=== PATIENT | female | born 1945 | race Caucasian/White ===

== ENCOUNTER 2017-12-28 13:00 | Emergency (ER) | payer MEDICARE, MEDICAID, SELFPAY ==
[2017-12-28] VITALS (8 sets, daily range): BP systolic 95–128; BP diastolic 75–104; PULSE 85–115; RESP 20–29; TEMP 36.8; O2SAT 89–95; BMI 36.6
--- NOTE | 2017-12-28 13:25 | RAD_ITS ---
STUDY: X-RAY CHEST REASON FOR EXAM: Female, 72 years old. Increased shortness of breath. TECHNIQUE: Single AP portable view of the chest. COMPARISON: Comparison is made with prior study dated December 20, 2016. FINDINGS: EKG electrodes are seen. Stable mild degree of increased linear markings at the lung bases suggestive of basilar scarring. The lungs are clear and expanded. There is no demonstrated pleural abnormality. Normal size heart. Normal mediastinum and jeffrey. Normal visualized pulmonary arteries. There is atherosclerotic calcification of the aortic arch with tortuosity. There are diffuse degenerative changes of the visualized thoracic spine. There is degenerative osteoarthritis of the bilateral shoulders. Findings suggestive of a hiatal hernia. RAD/Chest 1 View (Portable) IMPRESSION: Stable increased linear markings at the lung bases suggestive of scarring. Electronically Signed: Krishna Grant MD at 13:54 EDT Tel [phone], Service support ,
--- NOTE | 2017-12-28 13:25 | EKG12_ITS ---
Test Reason : SOB Blood Pressure : / mmHG Vent. Rate : 102 BPM Atrial Rate : 381 BPM P-R Int : 000 ms QRS Dur : 070 ms QT Int : 326 ms P-R-T Axes : 000 026 048 degrees QTc Int : 424 ms Atrial flutter with variable A-V block Abnormal ECG Confirmed by JOSE PAUL ([id number]), scientific publications editor CARMEN SAMPSON ([id number]) on 01/01/2018 10:21:58 AM Referred By: FERNANDA Confirmed By:JOSE PAUL
[2017-12-28] MEDS: Ipratropium/Albuterol Sulfate 3 ML AMPUL.NEB INHALATION (13:32)
[2017-12-28 13:37] LABS: Absolute Lymphocyte Count 1.42 X10^3/ul (0.83-4.51); Basophil# 0.01 X10^3/uL; Basophil% 0.1 % (0-1); Eosinophil# 0.14 X10^3/uL; Eosinophils% 1.7 % (0-5); Hematocrit 46.6 % (37-47); Hemoglobin 12.2 g/dl (12.0-15.0); Lymphocyte # 1.42 X10^3/ul (4.0); Lymphocyte % 17.1 % (19-41); Mean Corp Hgb Conc 26.2 g/gl (32-36); Mean Corpuscular Hgb 28.8 pg (27.0-32.0); Mean Corpuscular Volume 110.2 fL (81-99); Mean Platelet Vol. 10.9 fl (6.2-12.0); Monocyte# 0.69 X10^3/uL; Monocyte% 8.3 % (0-10); Neutrophil # 6.03 X10^3/uL (2.7-7.7); Neutrophil % 72.8 % (47-70); Platelet Count 137 K/mm3 (150-450); RBC Distribution Width CV 13.3 % (11.6-14.6); RBC Distribution Width SD 53.5 fl (35.1-43.9); Red Blood Count 4.23 M/mm3 (4.2-5.4); White Blood Count 8.3 K/mm3 (4.4-11.0)
[2017-12-28 13:38] LABS: POSITIVE COUNT NO; POSITIVE DIFFERENTIAL NO; POSITIVE MORPHOLOGY NO
--- NOTE | 2017-12-28 13:44 | ED.VISSUMM ---
- ER Visit Summary Date of Service: 12/28/17 Chief Complaint: [] Shortness of breath A. fib History of Present Illness: The patient is a 72 F [] long history of chronic shortness of breath related to COPD on home O2 6 L A. fib Coumadin therapy she indicates basically her oxygen saturation fell based on her pulse ox reading to about 77% she was brought to the emergency department she indicates she now believes that her oxygen tubing was kinked as just on arrival and been placed on her normal O2 of 6 L she is feeling back to baseline no fever no cough chronic shortness of breath no chest pain abdominal pain normal bowel bladder habits she has A. fib and her heart rates were about 110-120 she states that is baseline for her she assures me she feels Apsley back to baseline now, she seen by Dr. Shepard who she does not wish for me to contact as she is concerned if he is contacted he will insist that she should be admitted but she actually feels better and wants to go home Physical Examination: [] She is resting in the bed she has a pulse ox of 94% on liters, her heart rate is about 110-120 A. fib on the monitor her HEENT exam is unremarkable her lungs are markedly diminished heart tones are regular the abdomen is soft obese but nontender lower extremities show no sinus clubbing or edema neurologically she is awake alert speaking full sentences in no distress Test Results: [] Emergency Department Course and Treatment: [] EKG shows nothing acute site A. fib rate 100 studies are all generally unremarkable for her see those reports her CO2 on the chemistry panel came back greater than 45 she remains awake and alert with no signs of respiratory failure or distress her chest x-ray showed chronic changes her daughter came in a long conversation with the patient again we did offer the patient admission the patient insisted she was fine her pulse ox was remained in the 94% range on her oxygen she assures that she has plenty of oxygen at home we did provide her with additional oxygen tubing so walking of explained her she cannot go long distances with the tubing and that can affect the amount of oxygen she can receive, she insists she is feeling fine during the period of observation she remained awake alert no mental status changes of any kind her A. fib has been controlled her current vital signs her heart rate is 80 the blood pressure is 120/80 and her pulse ox is 94% and she speaking in full sentences she does agree to follow-up with her physicians and return for change in symptoms she is awake alert clearly has capacity to make this decision and the daughter was in the room we had these conversations and believe that the patient's decision to make Treatment Plan: [] Disposition: [] Home stable declined admission Impression: [] exacerrbation of COPD A. fib This note was generated with [employer] dictation software. It may contain incorrect words, spelling, and punctuation that were not noted in review of the chart prior to signing ED Disposition - Plan for ED Patient: Chief Complaint: Shortness of Breath Referrals: Vani Fuentes MD [Primary Care Provider] -
[2017-12-28 13:56] LABS: BUN 21 mg/dL (7-18); BUN/Creat Ratio 17.2 RATIO (10-20); Calcium,Total 10.2 mg/dL (8.5-10.1); Carbon Dioxide > 45.0 mmol/L (21.0-32.0); Chloride 94 mmol/L (98-107); Creatinine, Serum 1.22 mg/dL (0.55-1.02); EST Glomerular Filtration Rate 46 mL/min (>60); Est Glom Filt Rate - Afr Amer 55 mL/min (>60); Estimated Creatinine Clearance 29.06 ml/min; Glucose 157 mg/dL (74-106); Potassium 4.5 mmol/L (3.5-5.1); Sodium Level 143 mmol/L (136-145)
--- NOTE | 2017-12-28 13:58 | ED.RN ---
DR ADAMS NOTIFIED OF CO2 RESULTS
[2017-12-28 14:06] LABS: BNP,B-Type NATRIURETIC PEPTIDE 149.5 pg/mL (0-100)
[2017-12-28] MEDS: dilTIAZem 25 MG/5 ML Vial 20 MG IV BOLUS (14:22)
--- NOTE | 2017-12-28 16:13 | CM.ED ---
Shortness of Breath zone management sheet provided to patient. Reviewed with patient and patient's daughter at bedside. No questions at this time.
--- NOTE | 2017-12-28 16:35 | ED.DEP ---
ED Disposition - Plan for ED Patient: Chief Complaint: Shortness of Breath Instructions: ED COPD Flare Referrals: Vani Fuentes MD [Primary Care Provider] -
--- NOTE | 2017-12-29 11:49 | CM.ED ---
ED CALLBACK: Followup call placed to patient. Patient states she is feeling good today. She states she replaced her oxygen tubing. I referenced her zone management sheet, as we discussed in the ED yesterday. She acknowledges that she does have this sheet in a visible location and was familiar with it's use. We reviewed the different zones and patient indicates she is in the green zone at this time. Encouraged patient to refer to this sheet often and to contact her PCP when she feels she is entering the yellow zone. Patient states understanding and thanks
== END 2017-12-28 18:51 | disposition home or self-care (01) ==
PROVIDERS: Emergency Provider Emergency Medicine; Family Provider Family Medicine; PCP Family Medicine
DX: J44.1 Chronic obstructive pulmonary disease with (acute) exacerbation (principal); I48.91 Unspecified atrial fibrillation; Z99.81 Dependence on supplemental oxygen; Z79.01 Long term (current) use of anticoagulants; Z79.899 Other long term (current) drug therapy
CPT/HCPCS: 71045; 80048; 83880; 84484; 85025; 93005; 94640; 96374; 99285; A4216

== ENCOUNTER 2018-04-02 06:53 | Day surgery (SDC) | payer MEDICARE, SELFPAY ==
[2018-04-02 07:36] LABS: Prothrombin Time Fingerstick 11.6 SEC (11.9-14.4)
[2018-04-02 07:40] VITALS: BP 138/67; PULSE 49; RESP 18; TEMP 36.1; O2SAT 98; BMI 30.5
--- NOTE | 2018-04-02 08:32 | OP.ENDO_ITS ---
Patient Name: Onelia Keller Procedure Date: 04/02/2018 8:03 AM Date of : 1945 Age: 72 Procedure: Colonoscopy Indications: Heme positive stool Providers: Pankaj Zimmerman MD Referring MD: Pankaj Zimmerman MD Medicines: See the Anesthesia note for documentation of the administered medications Patient Profile: Last Colonoscopy: none. The patient's first colonoscopy is today. Complications: No immediate complications. Procedure: Pre-Anesthesia Assessment: - Prior to the procedure, a History and Physical was performed, and patient medications and allergies were reviewed. The patient's tolerance of previous anesthesia was also reviewed. The risks and benefits of the procedure and the sedation options and risks were discussed with the patient. All questions were answered, and informed consent was obtained. Prior Anticoagulants: The patient has taken Coumadin (warfarin), last dose was 7 days prior to procedure. ASA Grade Assessment: III - A patient with severe systemic disease. After reviewing the risks and benefits, the patient was deemed in satisfactory condition to undergo the procedure. After I obtained informed consent, the scope was passed under direct vision. Throughout the procedure, the patient's blood pressure, pulse, and oxygen saturations were monitored continuously. The colonoscope was introduced through the anus and advanced to the cecum, identified by appendiceal orifice and ileocecal valve. The colonoscopy was performed without difficulty. The patient tolerated the procedure well. The quality of the bowel preparation was adequate to identify polyps. Scope In: 8:14:39 AM Scope Withdrawal Time 0 hours 6 minutes 17 seconds Scope Out: 8:26:09 AM Total Procedure Duration Time 0 hours 11 minutes 30 seconds Findings: Hemorrhoids were found on perianal exam. Non-bleeding non-prolapsed external and internal hemorrhoids were found during retroflexion. The hemorrhoids were mild and medium-sized. Multiple small and large-mouthed diverticula were found in the sigmoid colon. No biopsies or other specimens were collected for this exam. The exam was otherwise without abnormality. Impression: - Hemorrhoids found on perianal exam. - Non-bleeding non-prolapsed external and internal hemorrhoids. - Diverticulosis in the sigmoid colon. No specimens collected. - The examination was otherwise normal. Recommendation: - Discharge patient to home. - Resume previous diet. - Continue present medications. - Repeat colonoscopy in 10 years for screening purposes. - Return to primary care physician PRN. Procedure Code(s): --- Professional --- 20011, Colonoscopy, flexible; diagnostic, including collection of specimen(s) by brushing or washing, when performed (separate procedure) Diagnosis Code(s): --- Professional --- K64.8, Other hemorrhoids R19.5, Other fecal abnormalities K57.30, Diverticulosis of large intestine without perforation or abscess without bleeding CPT copyright 2017 [employer]. All rights reserved. The codes documented in this report are preliminary and upon enrollment eligibility representative review may be revised to meet current compliance requirements. MD Pankaj Montgomery MD 04/02/2018 8:32:25 AM This report has been signed electronically. Number of Addenda: 0 Note Initiated On: 04/02/2018 8:03 AM
[2018-04-02 08:35] VITALS: BP 110/68; BP 111/55; BP 138/67; PULSE 56; PULSE 61; RESP 22; TEMP 36.3; O2SAT 95
--- NOTE | 2018-04-02 08:37 | HP.PCM_ITS ---
Problem List (1) Heme + stool Status: Acute History of Present Illness Date of Admission: 04/02/18 The patient is a 72 year old F who has a history of heme positive stools has never had a colonoscopy. Past Medical History Past Medical History (Chronic Problems): Chronic Problems (Last Reviewed 03/02/18 @ 09:36 by Pankaj Zimmerman MD) Toe pain, left (Chronic) Toe pain, right (Chronic) Tinea unguium (Chronic) Atrial fibrillation (Chronic) Osteoarthritis (Chronic) Hypertension (Chronic) Respiratory failure (Chronic) COPD (chronic obstructive pulmonary disease) (Chronic) Atrial fibrillation with RVR (Chronic) Tobacco abuse (Chronic) Anemia (Chronic) DVT (deep venous thrombosis) (Chronic) Medical History: Medical History (Last Reviewed 04/02/18 @ 08:36 by Pankaj Zimmerman MD) Toe pain, left (Chronic) M79.675 Toe pain, right (Chronic) M79.674 Tinea unguium (Chronic) B35.1 Atrial fibrillation (Chronic) I48.91 Osteoarthritis (Chronic) M19.90 Fall (Acute) W19.XXXA Fracture of left pelvis (Acute) S32.9XXA Closed left hip fracture (Acute) S72.002A Hypertension (Chronic) I10 Hemorrhagic shock (Resolved) [id number] Respiratory failure (Chronic) J96.90 COPD (chronic obstructive pulmonary disease) (Chronic) J44.9 Atrial fibrillation with RVR (Chronic) I48.91 Tobacco abuse (Chronic) Z72.0 Anemia (Chronic) D64.9 Retroperitoneal bleeding (Resolved) R58 DVT (deep venous thrombosis) (Chronic) I82.409 Left hip pain (Acute) M25.552 Olecranon fracture (Acute) S52.023A Pubic ramus fracture (Acute) S32.599A Allergies metformin Adverse Reaction (Verified 03/30/18 15:14) Diarrhea Home Medications: Ambulatory Orders Medication Instructions Recorded Metoprolol Tartrate 12.5 mg PO BID 11/25/16 Umeclidinium Brm/Vilanterol Tr 1 ea INHALATION DAILY 11/25/16 [Anoro Ellipta 62.5-25 Mcg INH] Acetaminophen [Tylenol] 1,000 mg PO Q8H PRN PRN tablet 01/03/17 albuterol sulfate HFA 90 2 puff INHALATION Q6H PRN #18 g 07/24/17 mcg/actuation aerosol inhaler furosemide 40 mg tablet 20 mg PO DAILY 03/02/18 warfarin 5 mg tablet 5 mg PO DAILY@1700 tab 03/02/18 warfarin 7.5 mg tablet 7.5 mg PO .Wed, Sat tab 03/02/18 Surgical History: Surgical History (Last Reviewed 03/02/18 @ 09:36 by Pankaj Zimmerman MD) History of inferior vena caval filter placement (Acute) Z95.828 Hx of bilateral hip replacements (Acute) Z96.643 Left elbow fracture (Acute) S42.402A Surgical History: appendectomy, total hip arthroplasty, - Psychiatric History: No pertinent psych hx 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 GALVANIZER history Smoking Status: Former smoker - *Family History Maternal Family History: Family History (Last Reviewed 03/02/18 @ 09:36 by Pankaj Zimmerman MD) Father Diabetes Heart disease Hypertension Mother Heart disease Hypertension History Items: No pertinent history Review of Systems Constitutional: Denies: Chills, Fever, Weight Change Gastrointestinal: Denies: Abdominal Pain, Constipation, Diarrhea, Hematemesis, Nausea, Melena, Vomiting VTE Information - Inpt Only VTE Present on Admission: No VTE Mechan Device Prophylaxis: None VTE Pharm Prophylaxis ordered?: No Reason prophylaxis not ordered:: Treatment Not Indicated Patient Problems: Active and Suspected Problems (Last Reviewed 03/02/18 @ 09:36 by Pankaj Zimmerman MD) Heme + stool (Acute) - Physical Exam Lungs: Clear to auscultation Cardiovascular: Regular rate, Regular Rhythm, No murmurs Abdomen: Soft, Obese Vital Signs Temp Pulse Resp BP Pulse Ox 97.0 F L 49 L 18 138/67 H 98 04/02/18 07:40 04/02/18 07:40 04/02/18 07:40 04/02/18 07:40 04/02/18 07:40 Oxygen Flow Rate (L/min) 6 Oxygen Delivery Method Nasal Cannula Weight: 178 lb 2.136 oz Body Mass Index (BMI) 30.5 Laboratory Tests Past 24 Hrs 04/02/18 07:30 POC PT 11.6 L INR 1.00 Assessment/Plan All Active Problems (Last Reviewed 03/02/18 @ 09:36 by Pankaj Zimmerman MD) Heme + stool (Acute) History of inferior vena caval filter placement (Acute) Hx of bilateral hip replacements (Acute) Fall (Acute) Fracture of left pelvis (Acute) Closed left hip fracture (Acute) Left elbow fracture (Acute) Hemorrhagic shock (Resolved) Retroperitoneal bleeding (Resolved) Left hip pain (Acute) Olecranon fracture (Acute) Pubic ramus fracture (Acute) I plan will be to perform a colonoscopy.
[2018-04-02 08:40] VITALS: BP 111/55; BP 138/67; PULSE 60; RESP 22; O2SAT 93
[2018-04-02 08:45] VITALS: BP 101/68; BP 138/67; PULSE 57; RESP 22; O2SAT 94
[2018-04-02 08:53] VITALS: BP 121/57; BP 138/67; PULSE 58; RESP 22; TEMP 36.4; O2SAT 93
[2018-04-02 09:12] VITALS: BP 138/67
== END 2018-04-02 09:24 | disposition home or self-care (01) ==
LOC: EN 06:54 → AC 08:15
PROVIDERS: Family Provider Internal Medicine; PCP Internal Medicine; Visit Provider Surgery
PROC: 0DJD8ZZ Inspection of Lower Intestinal Tract, Via Natural or Artificial Opening Endoscopic (ICD-10-PCS; CPT 45378; principal; 2018-04-02 08:10)
DX: K64.8 Other hemorrhoids (principal); K64.4 Residual hemorrhoidal skin tags; K57.30 Diverticulosis of large intestine without perforation or abscess without bleeding; R19.5 Other fecal abnormalities; I10 Essential (primary) hypertension; I48.91 Unspecified atrial fibrillation; J96.90 Respiratory failure, unspecified, unspecified whether with hypoxia or hypercapnia; J44.9 Chronic obstructive pulmonary disease, unspecified; R73.03 Prediabetes; Z99.81 Dependence on supplemental oxygen; Z79.01 Long term (current) use of anticoagulants; Z79.899 Other long term (current) drug therapy; Z86.718 Personal history of other venous thrombosis and embolism; Z87.891 Personal history of nicotine dependence; M19.90 Unspecified osteoarthritis, unspecified site
CPT/HCPCS: G0121; 36416; 85610; J7120

== ENCOUNTER → 2018-05-14 11:43 | Outpatient (CLI) | payer MEDICARE, SELFPAY ==
[2018-05-14 12:49] LABS: International Normalized Ratio 2.9; Prothrombin Time (Protime)PT. 30.1 SECONDS (11.7-14.9)
== END ==
PROVIDERS: Family Provider Internal Medicine; PCP Internal Medicine; Referring Provider Internal Medicine; Visit Provider Internal Medicine
DX: I82.403 Acute embolism and thrombosis of unspecified deep veins of lower extremity, bilateral (principal)
CPT/HCPCS: 85610

== ENCOUNTER 2018-10-06 07:05 | Inpatient (IN) | payer MEDICARE, SELFPAY ==
[2018-10-06] VITALS (33 sets, daily range): BP systolic 99–160; BP diastolic 50–100; PULSE 48–128; RESP 12–32; TEMP 36.2–36.5; O2SAT 77–98; BMI 27.8; BMI 28.0; BMI 28.1
--- NOTE | 2018-10-06 07:13 | RAD_ITS ---
STUDY: X-RAY CHEST REASON FOR EXAM: Female, 73 years old. Dyspnea hypoxia TECHNIQUE: Single AP portable view of the chest. COMPARISON: September 27, 2016, December 28, 2017 FINDINGS: There is improved aeration of the lungs since December 28, 2017. The lung markings are similar to more remote studies. There is trace linear density within the right lower lobe. There is no demonstrated pleural abnormality. Normal size heart. Normal mediastinum and jeffrey. Normal visualized pulmonary arteries. There is atherosclerotic tortuosity of the aortic arch and descending thoracic aorta. There are diffuse degenerative changes of the visualized thoracic spine. Normal visualized ribs, clavicles, and shoulders. There is no demonstrated abnormality of the visualized soft tissue structures of the upper abdomen. RAD/Chest 1 View (Portable) IMPRESSION: Minimal right lower lobe atelectasis and/or scarring. Electronically Signed: Bailee East MD at 8:44 EDT Tel , Service support ,
--- NOTE | 2018-10-06 07:13 | EKG12_ITS ---
Test Reason : SOB Blood Pressure : / mmHG Vent. Rate : 091 BPM Atrial Rate : 091 BPM P-R Int : 138 ms QRS Dur : 080 ms QT Int : 382 ms P-R-T Axes : 046 028 050 degrees QTc Int : 469 ms Sinus rhythm with Premature atrial complexes Otherwise normal ECG Confirmed by JUNAID ARMAS, JENN ([id number]), book or script editor CARMEN SAMPSON ([id number]) on 10/09/2018 10:59:09 AM Referred By: CLIFTON Confirmed By:JENN QUIROGA MD
[2018-10-06] MEDS: Ipratropium/Albuterol Sulfate 3 ML AMPUL.NEB INHALATION ×4 (07:23→18:49)
[2018-10-06] MEDS: Albuterol 2.5 MG/3 ML VIAL.NEB. INHALATION ×2 (07:23)
[2018-10-06 07:55] LABS: Hematocrit 47.7 % (37-47); Hemoglobin 12.8 g/dl (12.0-15.0); Mean Corp Hgb Conc 26.8 g/gl (32-36); Mean Corpuscular Volume 107.9 fL (81-99); Platelet Count 143 K/mm3 (150-450); RBC Distribution Width CV 13.7 % (11.6-14.6); RBC Distribution Width SD 54.1 fl (35.1-43.9); Red Blood Count 4.42 M/mm3 (4.2-5.4); White Blood Count 9.3 K/mm3 (4.4-11.0)
[2018-10-06 07:57] LABS: Scan Indicated on CBC? Y/N NO
--- NOTE | 2018-10-06 08:01 | NURSING ---
PROTIME NEEDS REDRAWN
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
[2018-10-06 08:18] LABS: BUN 21 mg/dL (7-18); BUN/Creat Ratio 18.8 RATIO (10-20); Carbon Dioxide > 45.0 mmol/L (21.0-32.0); Chloride 96 mmol/L (98-107); Creatinine, Serum 1.12 mg/dL (0.55-1.02); EST Glomerular Filtration Rate 50 mL/min (>60); Est Glom Filt Rate - Afr Amer 61 mL/min (>60); Estimated Creatinine Clearance 37.48 ml/min; Glucose 128 mg/dL (74-106); Sodium Level 143 mmol/L (136-145)
[2018-10-06 08:27] LABS: Lactic Acid 1.1 mmol/L (0.4-2.0)
[2018-10-06 08:44] LABS: Prothrombin Time (Protime)PT. 22.4 SECONDS (11.7-14.9)
--- NOTE | 2018-10-06 08:47 | NURSING ---
DR GONZALES FOR DR LAZO
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
--- NOTE | 2018-10-06 09:00 | NURSING ---
ICU WHITE RESP FAILURE WITH HYPERCAPNIA AND HYPOXIA, COPD
--- NOTE | 2018-10-06 09:09 | NURSING ---
ICU 3
[2018-10-06 11:17] LABS: Magnesium 2.3 mg/dL (1.6-2.6)
[2018-10-06] MEDS: Furosemide 20 MG Tablet PO (11:52)
[2018-10-06] MEDS: Metoprolol Tartrate 25 MG Tablet 12.5 MG PO ×2 (11:52→21:04)
[2018-10-06] MEDS: MethylPREDNISolone 125 MG/2 ML Vial IV (11:52)
[2018-10-06] MEDS: guaiFENesin 1,200 MG Tablet 1200 MG PO ×2 (11:53→21:04)
[2018-10-06] MEDS: 0.9% NaCl Peripheral Flush Adult/Peds IV ×4 (12:00→21:04)
[2018-10-06] MEDS: 0.9% Normal Saline 1,000 ML 75 ML IV (12:00)
[2018-10-06 12:54] LABS: Hemoglobin A1c 5.8 % (4.2-6.3)
[2018-10-06 16:20] LABS: Blood Gas Specimen Type VEN; O2 Delivery Device Nasal Can; SITE OTHER; Time Given 738; VBG BASE EXCESS 28 mmol/L (-1.0-3.5); VBG Bicarbonate 53 mmol/L (22-26); VBG PO2 21 mmHg (25-40); VBG SO2 29 % (50-70); VBG pCO2 87.7 mmHg (41-51); VBG pH 7.39 (7.32-7.42)
[2018-10-06] MEDS: dilTIAZem 25 MG/5 ML Vial 10 MG IV BOLUS (17:24)
[2018-10-06] MEDS: Pramipexole Di-HCl 0.125 MG Tablet PO (21:04)
[2018-10-07] VITALS (46 sets, daily range): BP systolic 114–179; BP diastolic 58–100; PULSE 49–94; RESP 12–39; TEMP 36.4–37.1; O2SAT 84–99
[2018-10-07] MEDS: 0.9% Normal Saline 1,000 ML 75 ML IV ×2 (01:27→13:28)
[2018-10-07 04:37] LABS: Absolute Lymphocyte Count 0.61 X10^3/ul (0.83-4.51); Absolute Neutrophil Count 4.1 X10^3/uL (2.0-7.7); Hematocrit 41.7 % (37-47); Hemoglobin 11.9 g/dl (12.0-15.0); Lymphocyte # 0.61 X10^3/ul (4.0); Lymphocyte % 12.9 % (19-41); Mean Corp Hgb Conc 28.5 g/gl (32-36); Mean Corpuscular Volume 101.5 fL (81-99); Mean Platelet Vol. 11.8 fl (6.2-12.0); Monocyte# 0.06 X10^3/uL; Monocyte% 1.3 % (0-10); Neutrophil # 4.05 X10^3/uL (2.7-7.7); Neutrophil % 85.6 % (47-70); POSITIVE COUNT NO; POSITIVE DIFFERENTIAL NO; POSITIVE MORPHOLOGY NO; Platelet Count 152 K/mm3 (150-450); RBC Distribution Width CV 13.6 % (11.6-14.6); RBC Distribution Width SD 51.4 fl (35.1-43.9); Red Blood Count 4.11 M/mm3 (4.2-5.4); White Blood Count 4.7 K/mm3 (4.4-11.0)
[2018-10-07 04:41] LABS: Anion Gap 4 (5-15); BUN 23 mg/dL (7-18); BUN/Creat Ratio 19.7 RATIO (10-20); Calcium,Total 9.4 mg/dL (8.5-10.1); Chloride 97 mmol/L (98-107); Creatinine, Serum 1.17 mg/dL (0.55-1.02); EST Glomerular Filtration Rate 48 mL/min (>60); Est Glom Filt Rate - Afr Amer 58 mL/min (>60); Estimated Creatinine Clearance 35.88 ml/min; Glucose 155 mg/dL (74-106); Potassium 5.3 mmol/L (3.5-5.1); Sodium Level 143 mmol/L (136-145)
[2018-10-07] MEDS: Menthol/Lanolin/Calamine/Znox 113 GM Tube 1 APPLIC TOPICAL ×2 (05:38→20:53)
[2018-10-07] MEDS: 0.9% NaCl Peripheral Flush Adult/Peds IV ×3 (05:38→22:45)
[2018-10-07 06:03] LABS: International Normalized Ratio 2.5; Prothrombin Time (Protime)PT. 26.9 SECONDS (11.7-14.9)
--- NOTE | 2018-10-07 06:09 | PCM.CON.CC ---
Reason for Consult Reason for Consultation: Acute respiratory failure History of Present Illness: The patient is a 73-year-old female, with a history as outlined below, who presented to the emergency department on October 06 with complaints of shortness of breath and nonproductive cough. The patient reportedly has baseline COPD and chronic hypoxemic respiratory failure with a 6 L/min baseline requirement. 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 I did at one point see the patient in the pulmonary medicine clinic, but she has been lost to follow-up for quite some time. She does have an extensive smoking history and continues to smoke cigarettes on a daily basis. She does report that she is currently utilizing Anoro along with an as needed albuterol inhaler on a daily basis. On presentation to the emergency department, the patient was noted to be afebrile and hemodynamically stable. She was tachypneic and saturating 87% on 6 L/min. Initial laboratory evaluation revealed no evidence of a leukocytosis. Chemistry profile revealed a serum bicarbonate greater than 45. Creatinine was increased to 1.12. Lactate was within normal limits. Troponin was negative. The patient's plain film chest x-ray did not reveal evidence of a focal infiltrate or consolidation. In the emergency department, the patient received IV Solu-Medrol and aerosol treatments. She was subsequently placed on BiPAP and admitted to the medical intensive care unit for ongoing management. 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 hip replacements (Chronic) Toe pain, left (Chronic) Toe pain, right (Chronic) Tinea unguium (Chronic) Atrial fibrillation (Chronic) Osteoarthritis (Chronic) Hypertension (Chronic) Respiratory failure (Chronic) COPD (chronic obstructive pulmonary disease) (Chronic) Atrial fibrillation with RVR (Chronic) Tobacco abuse (Chronic) Anemia (Chronic) DVT (deep venous thrombosis) (Chronic) Medical History: Medical History (Last Reviewed 04/02/18 @ 08:36 by Pankaj Zimmerman MD) Toe pain, left (Chronic) M79.675 Toe pain, right (Chronic) M79.674 Tinea unguium (Chronic) B35.1 Atrial fibrillation (Chronic) I48.91 Osteoarthritis (Chronic) M19.90 Fall (Acute) W19.XXXA Fracture of left pelvis (Acute) S32.9XXA Closed left hip fracture (Resolved) S72.002A Hypertension (Chronic) I10 Hemorrhagic shock (Resolved) [id number] Respiratory failure (Chronic) J96.90 COPD (chronic obstructive pulmonary disease) (Chronic) J44.9 Atrial fibrillation with RVR (Chronic) I48.91 Tobacco abuse (Chronic) Z72.0 Anemia (Chronic) D64.9 Retroperitoneal bleeding (Resolved) R58 DVT (deep venous thrombosis) (Chronic) I82.409 Left hip pain (Acute) M25.552 Olecranon fracture (Acute) S52.023A Pubic ramus fracture (Acute) S32.599A Allergies metformin Adverse Reaction (Verified 10/06/18 07:13) Diarrhea Home Medications: Ambulatory Orders Medication Instructions Recorded Metoprolol Tartrate 12.5 mg PO BID 11/25/16 Umeclidinium Brm/Vilanterol Tr 1 ea INHALATION DAILY 11/25/16 [Anoro Ellipta 62.5-25 Mcg INH] Acetaminophen [Tylenol] 1,000 mg PO Q8H PRN PRN tablet 01/03/17 furosemide 40 mg tablet 20 mg PO BID 03/02/18 warfarin 5 mg tablet 5 mg PO SUMOTUTHFR tab 03/02/18 warfarin 7.5 mg tablet 7.5 mg PO WESA tab 03/02/18 albuterol sulfate HFA 90 2 puff INHALATION Q6H PRN #18 g 04/05/18 mcg/actuation aerosol inhaler Potassium Chloride 10 meq PO BID 10/06/18 Surgical History: Surgical History (Last Reviewed 03/02/18 @ 09:36 by Pankaj Zimmerman MD) History of inferior vena caval filter placement (Chronic) Z95.828 Hx of bilateral hip replacements (Chronic) Z96.643 Left elbow fracture (Acute) S42.402A Surgical History: appendectomy, total hip arthroplasty, - - s/p IVC filter, BL THR, Appendectomy. 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 Tobacco Use: Cigarettes Alcohol: None Drugs: None - *Family History Maternal Family History: Family History (Last Reviewed 03/02/18 @ 09:36 by Pankaj Zimmerman MD) Father Diabetes Heart disease Hypertension Mother Heart disease Hypertension History Items: High Cholesterol, Heart Disease, Hypertension Paternal Family History: Family History (Last Reviewed 03/02/18 @ 09:36 by Pankaj Zimmerman MD) Father Diabetes Heart disease Hypertension Mother Heart disease Hypertension History Items: Diabetes, High Cholesterol, Heart Disease, Hypertension Review of Systems Constitutional: Denies: Chills, Fever Eyes: Denies: Blurred vision, Double vision HEENT: Denies: Head Aches, Sinus Congestion, Sinus Drainage Cardiovascular: Denies: Chest Pain, Palpitations Respiratory: Reports: Cough, Shortness of Breath. Denies: Sputum production Gastrointestinal: Denies: Abdominal Pain, Nausea, Vomiting Genitourinary: Denies: Dysuria Musculoskeletal: Denies: Joint Pain, Joint Tenderness Skin: Denies: Rash, Wounds Neurological: Denies: Numbness, Tingling, Focal weakness Psychiatric: Reports: Anxiety Hematologic/ Lymphatic: Denies: Easy Bruising, Easy Bleeding Patient Problems: Active and Suspected Problems (Last Reviewed 04/02/18 @ 08:36 by Pankaj Zimmerman MD) Acute on chronic respiratory failure with hypoxia and hypercapnia (Acute) COPD with exacerbation (Acute) Objective: The patient's most recent lab work, culture data and imaging studies have all been personally reviewed. Surface echocardiogram from 2016 revealed normal LV size and function with an ejection fraction of 65%. Right ventricular systolic pressure was unable to be estimated at that time. Respiratory viral panel was negative. Expectorated sputum cultures pending. - Physical Exam General: Alert, Cooperative, - - Currently tolerating BiPAP without issue. HEENT: Atraumatic, PERRLA, Normocephalic Oral: Dry Mucosa Neck: Supple, No Nodes, Trachea Midline Lungs: No rhonchi, No wheeze, No rales, Diminished Cardiovascular: Regular rate, Regular Rhythm, Normal S1, Normal S2, No murmurs Abdomen: Bowel Sounds Present, Soft, Non Tender, Obese Extremities: No clubbing, No cyanosis, No edema Skin: No breakdown Musculoskeletal: No Tenderness to Palpation of Joints or Extremities, No Muscle Wasting Lymphatic: No Cervical, Supraclavicular, or Inguinal Adenopathy Neurological: Cranial nerves II-XII grossly intact, Neuro grossly intact Psych/Mental Status: Normal Affect, Appropriate Vital Signs Temp Pulse Resp BP Pulse Ox 36.4 C L 51 L 26 H 157/71 H 99 10/07/18 04:00 10/07/18 06:00 10/07/18 06:00 10/07/18 06:00 10/07/18 06:00 Oxygen Flow Rate (L/min) 40 Oxygen Delivery Method Bi-pap Weight: 165 lb 12.602 oz Body Mass Index (BMI) 28.0 Intake and Output for Last 24 Hours 10/05/18 10/06/18 10/07/18 23:59 23:59 23:59 Intake Total 811 / 811 987 / 987 Output Total 500 / 500 100 / 100 Balance 311 / 311 887 / 887 Microbiology Past 72 Hours 10/06/18 10:40 Gram Stain - Final Sputum, Expectorated/Coughed 10/06/18 10:58 Respiratory Panel (PCR) - Final Mucosa - Nasopharyngeal Laboratory Tests Past 24 Hrs 10/06/18 10/06/18 10/06/18 07:39 07:39 07:40 WBC 9.3 RBC 4.42 Hgb 12.8 Hct 47.7 H MCV 107.9 H MCH 29.0 MCHC 26.8 L RDW 13.7 RDW Differential 54.1 H Plt Count 143 L MPV 12.0 Immature Gran % (Auto) Neut % (Auto) Lymph % (Auto) Coos % (Auto) Eos % (Auto) Baso % (Auto) Absolute Neuts (auto) Absolute Lymphs (auto) Total Counted PT INR Specimen Type ISAIAH Sample Site OTHER VBG pH Pending 7.39 VBG pO2 Pending 21 L VBG O2 Sat (Calc) Pending 29 L VBG O2 Content Pending Pending VBG Base Excess 28 H POC Mix VBG pCO2 Pt Tmp Pending 87.7 H* O2 Delivery Device Nasal Can Liter Flow 8.0 Blood Gas Notified Whom ED Blood Gas Notified Time 738 Sodium Potassium Chloride Carbon Dioxide Anion Gap BUN Creatinine Estim Creat Clear Calc Est GFR (MDRD) Af Amer Est GFR (MDRD) Non-Af BUN/Creatinine Ratio Glucose Hemoglobin A1c Lactic Acid Calcium Magnesium Troponin I 10/06/18 10/06/18 10/06/18 07:40 07:40 07:40 WBC RBC Hgb Hct MCV MCH MCHC RDW RDW Differential Plt Count MPV Immature Gran % (Auto) Neut % (Auto) Lymph % (Auto) Coos % (Auto) Eos % (Auto) Baso % (Auto) Absolute Neuts (auto) Absolute Lymphs (auto) Total Counted PT Cancelled INR Cancelled Specimen Type Sample Site VBG pH VBG pO2 VBG O2 Sat (Calc) VBG O2 Content VBG Base Excess POC Mix VBG pCO2 Pt Tmp O2 Delivery Device Liter Flow Blood Gas Notified Whom Blood Gas Notified Time Sodium 143 Potassium 5.0 Chloride 96 L Carbon Dioxide > 45.0 H* Anion Gap TNP BUN 21 H Creatinine 1.12 H Estim Creat Clear Calc 37.48 Est GFR (MDRD) Af Amer 61 Est GFR (MDRD) Non-Af 50 L BUN/Creatinine Ratio 18.8 Glucose 128 H Hemoglobin A1c Lactic Acid Calcium 10.0 Magnesium 2.3 Troponin I < 0.015 10/06/18 10/06/18 10/06/18 07:40 07:55 08:28 WBC RBC Hgb Hct MCV MCH MCHC RDW RDW Differential Plt Count MPV Immature Gran % (Auto) Neut % (Auto) Lymph % (Auto) Coos % (Auto) Eos % (Auto) Baso % (Auto) Absolute Neuts (auto) Absolute Lymphs (auto) Total Counted PT 22.4 H INR 2.0 Specimen Type Sample Site VBG pH VBG pO2 VBG O2 Sat (Calc) VBG O2 Content VBG Base Excess POC Mix VBG pCO2 Pt Tmp O2 Delivery Device Liter Flow Blood Gas Notified Whom Blood Gas Notified Time Sodium Potassium Chloride Carbon Dioxide Anion Gap BUN Creatinine Estim Creat Clear Calc Est GFR (MDRD) Af Amer Est GFR (MDRD) Non-Af BUN/Creatinine Ratio Glucose Hemoglobin A1c 5.8 Lactic Acid 1.1 Calcium Magnesium Troponin I 10/07/18 10/07/18 10/07/18 04:20 04:20 04:20 WBC 4.7 RBC 4.11 L Hgb 11.9 L Hct 41.7 MCV 101.5 H MCH 29.0 MCHC 28.5 L RDW 13.6 RDW Differential 51.4 H Plt Count 152 MPV 11.8 Immature Gran % (Auto) 0.200 Neut % (Auto) 85.6 H Lymph % (Auto) 12.9 L Coos % (Auto) 1.3 Eos % (Auto) 0.0 Baso % (Auto) 0.0 Absolute Neuts (auto) 4.1 Absolute Lymphs (auto) 0.61 L Total Counted Not Reportable PT Cancelled INR Cancelled Specimen Type Sample Site VBG pH VBG pO2 VBG O2 Sat (Calc) VBG O2 Content VBG Base Excess POC Mix VBG pCO2 Pt Tmp O2 Delivery Device Liter Flow Blood Gas Notified Whom Blood Gas Notified Time Sodium 143 Potassium 5.3 H Chloride 97 L Carbon Dioxide 42.0 H Anion Gap 4 L BUN 23 H Creatinine 1.17 H Estim Creat Clear Calc 35.88 Est GFR (MDRD) Af Amer 58 L Est GFR (MDRD) Non-Af 48 L BUN/Creatinine Ratio 19.7 Glucose 155 H Hemoglobin A1c Lactic Acid Calcium 9.4 Magnesium Troponin I 10/07/18 05:45 WBC RBC Hgb Hct MCV MCH MCHC RDW RDW Differential Plt Count MPV Immature Gran % (Auto) Neut % (Auto) Lymph % (Auto) Coos % (Auto) Eos % (Auto) Baso % (Auto) Absolute Neuts (auto) Absolute Lymphs (auto) Total Counted PT Pending INR Pending Specimen Type Sample Site VBG pH VBG pO2 VBG O2 Sat (Calc) VBG O2 Content VBG Base Excess POC Mix VBG pCO2 Pt Tmp O2 Delivery Device Liter Flow Blood Gas Notified Whom Blood Gas Notified Time Sodium Potassium Chloride Carbon Dioxide Anion Gap BUN Creatinine Estim Creat Clear Calc Est GFR (MDRD) Af Amer Est GFR (MDRD) Non-Af BUN/Creatinine Ratio Glucose Hemoglobin A1c Lactic Acid Calcium Magnesium Troponin I Clinical Impression(s) from Imaging Studies Chest X-Ray 10/06/18 07:13 IMPRESSION: Minimal right lower lobe atelectasis and/or scarring. Electronically Signed: Bailee East MD at 8:44 EDT Tel , Service support , Assessment/Plan Active and Suspected Problems (Last Reviewed 04/02/18 @ 08:36 by Pankaj Zimmerman MD) Acute on chronic respiratory failure with hypoxia and hypercapnia (Acute) COPD with exacerbation (Acute) RECOMMENDATIONS: 1. Continue BiPAP therapy and wean as tolerated. Maintain oxygen saturations 88-92%, to prevent paradoxical CO2 retention. 2. Continue scheduled bronchodilators and steroids for now. 3. Okay to continue Coumadin. Check daily INR. 4. Obtain repeat surface echocardiogram to evaluate for the presence of right-sided heart failure and/or worsening pulmonary hypertension. 5. If the patient does not begin to improve over the next 24 hours, consider obtaining high-resolution chest CT. 6. Continue Lasix. IMPRESSIONS: 1. Acute on chronic combined respiratory failure There is not appear to be any evidence of an underlying pulmonary infectious process. My concern is that the patient has end-stage COPD noted on pulmonary function testing from 2016 has continued to smoke. Her symptoms and hypoxemia may be the consequence of end-stage disease. I agree with continuing scheduled bronchodilators and steroids for now. Recommend obtaining a repeat surface echocardiogram to evaluate for pulmonary hypertension and/or right-sided heart failure. Goal to maintain oxygen saturations 88-92%, to prevent paradoxical CO2 retention. The patient can be weaned from BiPAP therapy as tolerated. However, I would recommend continuing PAP therapy with naps and nightly. The patient has been lost to outpatient pulmonary follow-up and is in need to reestablish care. 2. End-stage COPD with exacerbation The patient's last FEV1 in 2016 was noted to be 24% of predicted. She has continued to smoke since that time. As noted above, will continue scheduled bronchodilators and IV steroids. 3. Continuous tobacco dependency Smoking cessation is strongly advisable. Nicotine replacement therapy can be offered to the patient while she is admitted to the hospital. 4. History of atrial fibrillation/history of DVT/hypertension/hyperlipidemia Complicates care, management, recovery and prognosis. Okay to continue home medications from my perspective. CODE STATUS was confirmed to be DNR CCA. This note was generated with [employer] dictation software. It may contain incorrect words, spelling, and punctuation that were not noted in checking the note before signing. Code Visit Inpatient E&M: 69462 Init Hosp L3
[2018-10-07] MEDS: Ipratropium/Albuterol Sulfate 3 ML AMPUL.NEB INHALATION ×3 (06:42→14:39)
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
--- NOTE | 2018-10-07 07:54 | ECHOD_ITS ---
Reason For Study: Dyspnea/SOB Procedure This was a 2D Doppler, Color Flow transthoracic echocardiogram. Exam performed portable in ICU/CCU. Left Ventricle Normal LV size. Left ventricular systolic function is normal. The estimated ejection fraction is 60 %. Stage 2 diastolic dysfunction. No regional wall motion abnormalities noted. Right Ventricle Normal RV size. Normal systolic function. Atria Normal left atrium. Normal right atrium. Mitral Valve Normal mitral valve. Mild (1+) eccentric mitral valve insufficiency. Tricuspid Valve Normal tricuspid valve. Aortic Valve Trisinus/trileaflet aortic valve. Mild focal aortic valve calcification. Pulmonic Valve Normal pulmonic valve. Great Vessels Normal aortic root. The pulmonary artery is normal size. Normal inferior vena cava. Pericardium/Pleural No pericardial effusion. MMode/2D Measurements & Calculations LVIDd: 4.3 cm IVSd: 1.0 cm Ao root diam: 3.0 cm LVIDs: 2.7 cm LVPWd: 1.1 cm RVDd: 2.6 cm FS: 37.5 % LAV(MOD-bp): 41.0 ml LVAd ap4: 23.9 cm2 SV(MOD-sp4): 39.2 ml LAV(MOD-bp) Indexed: 22.6 ml/m2 EDV(MOD-sp4): 61.7 ml LAV(MOD-sp2): 44.2 ml EDV(sp4-el): 62.5 ml LAV(MOD-sp4): 38.4 ml LVAs ap4: 13.3 cm2 ESV(MOD-sp4): 22.5 ml ESV(sp4-el): 22.4 ml EF(MOD-sp4): 63.5 % EF(sp4-el): 64.2 % SV(sp4-el): 40.1 ml LA A4 area: 15.3 cm2 LA dimension(2D): 4.3 cm RA A4 area: 10.4 cm2 Doppler Measurements & Calculations MV E max chai: 87.4 cm/sec Lat Peak E' Chai: 4.1 cm/sec Med Peak E' Chai: 3.5 cm/sec MV A max chai: 96.9 cm/sec E/E' lat: 21.5 E/E' med: 24.6 MV E/A: 0.90 Ao V2 max: 163.1 cm/sec LV V1 max: 126.1 cm/sec PA V2 max: 95.3 cm/sec Ao max P.6 mmHg LV V1 max P.4 mmHg Ao V2 mean: 105.9 cm/sec Ao mean P.1 mmHg Ao V2 VTI: 36.4 cm Interpretation Summary Normal LV size. Left ventricular systolic function is normal. The estimated ejection fraction is 60 %. Stage 2 diastolic dysfunction. Ordering Physician: Humphrey Shepard D.O. Referring Physician: Lisa Clancy Performed By: Millicent Troy, AISHWARYA, RVT
--- NOTE | 2018-10-07 08:07 | RAD_ITS ---
STUDY: X-RAY CHEST REASON FOR EXAM: Female, 73 years old. Shortness of breath TECHNIQUE: AP COMPARISON: 10/06/2018 FINDINGS: EKG leads project over the chest. Minimal reticulation in the medial right lung base is stable. No airspace consolidation. There is no demonstrated pleural abnormality. Normal size heart. Normal mediastinum and jeffrey. Normal visualized pulmonary arteries. There is atherosclerotic calcification of the aortic arch with tortuosity. No acute bony process. There is no demonstrated abnormality of the visualized soft tissue structures of the upper abdomen. RAD/Chest 1 View (Portable) IMPRESSION: 1. Stable exam. Electronically Signed: Per Kaiser MD at 11:34 EDT , Service support ,
[2018-10-07 08:38] LABS: BNP,B-Type NATRIURETIC PEPTIDE 198.2 pg/mL (0-100)
[2018-10-07] MEDS: Furosemide 20 MG Tablet PO (09:45)
[2018-10-07] MEDS: guaiFENesin 1,200 MG Tablet 1200 MG PO ×2 (09:45→20:55)
[2018-10-07] MEDS: Acetaminophen 325 MG Tablet 650 MG PO (10:13)
[2018-10-07] MEDS: Metoprolol Tartrate 25 MG Tablet 12.5 MG PO ×2 (10:19→20:54)
[2018-10-07] MEDS: Pramipexole Di-HCl 0.125 MG Tablet PO (20:54)
[2018-10-07] MEDS: hydrALAZINE 20 MG/ML Vial 10 MG IV (22:45)
[2018-10-08] VITALS (31 sets, daily range): BP systolic 126–177; BP diastolic 58–142; PULSE 52–155; RESP 12–28; TEMP 36.8–37.4; O2SAT 90–100
[2018-10-08] MEDS: 0.9% Normal Saline 1,000 ML 75 ML IV (03:46)
[2018-10-08 04:08] LABS: Absolute Lymphocyte Count 0.81 X10^3/ul (0.83-4.51); Absolute Neutrophil Count 8.8 X10^3/uL (2.0-7.7); Hematocrit 40.2 % (37-47); Hemoglobin 11.4 g/dl (12.0-15.0); Lymphocyte # 0.81 X10^3/ul (4.0); Lymphocyte % 8.2 % (19-41); Mean Corp Hgb Conc 28.4 g/gl (32-36); Mean Corpuscular Hgb 28.1 pg (27.0-32.0); Mean Platelet Vol. 11.9 fl (6.2-12.0); Monocyte# 0.27 X10^3/uL; Monocyte% 2.7 % (0-10); Neutrophil # 8.75 X10^3/uL (2.7-7.7); Neutrophil % 88.9 % (47-70); Platelet Count 176 K/mm3 (150-450); RBC Distribution Width CV 14.2 % (11.6-14.6); RBC Distribution Width SD 50.2 fl (35.1-43.9); Red Blood Count 4.06 M/mm3 (4.2-5.4); White Blood Count 9.9 K/mm3 (4.4-11.0)
[2018-10-08 04:09] LABS: POSITIVE COUNT NO; POSITIVE DIFFERENTIAL NO; POSITIVE MORPHOLOGY NO
[2018-10-08 04:15] LABS: International Normalized Ratio 2.4; Prothrombin Time (Protime)PT. 26.5 SECONDS (11.7-14.9)
[2018-10-08 04:26] LABS: Anion Gap 5 (5-15); BUN 39 mg/dL (7-18); BUN/Creat Ratio 31.2 RATIO (10-20); Calcium,Total 9.3 mg/dL (8.5-10.1); Chloride 100 mmol/L (98-107); Creatinine, Serum 1.25 mg/dL (0.55-1.02); EST Glomerular Filtration Rate 44 mL/min (>60); Est Glom Filt Rate - Afr Amer 54 mL/min (>60); Estimated Creatinine Clearance 33.58 ml/min; Glucose 154 mg/dL (74-106); Sodium Level 142 mmol/L (136-145)
[2018-10-08 04:31] LABS: Base Excess 18 mmol/L (-2 to +2); Bicarbonate 41.9 mmol/L (22-26); Blood Gas Specimen Type ART; O2 Delivery Device Nasal Can; PO2 62 mmHG (75-100); SITE L Radial; SO2 92 % (95-99); Time Given 419; Total Carbon Dioxide 44 mmol/L; pCO2 59.5 mmHg (35-45); pH 7.46 (7.35-7.45)
[2018-10-08] MEDS: 0.9% NaCl Peripheral Flush Adult/Peds IV ×2 (05:02→22:22)
[2018-10-08 05:43] LABS: Ammonia < 10.0 umol/L (11-32)
[2018-10-08 06:06] LABS: Bacteria 0 SEEN /hpf (None Seen); Mucous, Urine 0 SEEN /hpf (<or=2+); Red Blood Cells-Urine 0 SEEN /hpf (0-5)
[2018-10-08 06:19] LABS: Color, Urine Yellow (Yellow); Glucose, Dipstick NEGATIVE (Normal); Ketone-Dipstick Negative (Negative); Leukocyte Esterase-Dipstick 25 /ul (Negative); Nitrite-Dipstick Negative (Negative); Occult Blood-Urine Negative /ul (Negative); Protein-Dipstick Negative (Negative); Specific Gravity, Urine 1.015 (1.002-1.030); Squamous Epithelial Cells - UA 25-50 SEEN /hpf (5-10); Urine Bilirubin Dipstick Negative (Negative); Urine Clarity Sl Cloudy (Clear); Urine Urobilinogen Normal (Normal); White Blood Cells 0-5 SEEN /hpf (0-5)
[2018-10-08] MEDS: Ipratropium/Albuterol Sulfate 3 ML AMPUL.NEB INHALATION ×4 (06:49→19:30)
--- NOTE | 2018-10-08 09:46 | PCM.PN.INT ---
Subjective: Patient did okay overnight. Patient was on BiPAP for most of the evening and tolerated this well. This morning, patient has been able to be weaned to 6 L nasal cannula with marginal saturations. Patient does desaturate quickly with any movement out of the bed. Nursing reported some concern over the smell of the urine, so a UA and culture have been sent. Patient has not been placed on any antibiotics, but was confused this morning. General: Alert, Confused, Disoriented, - - Slight conversational dyspnea. Appears older than stated age. HEENT: Atraumatic, PERRLA, EOMI, Normocephalic, - - Slight scleral injection without icterus Oral: Moist Mucosa, No Gingival or Mucosal Lesions/ Ulcerations Neck: Supple, No Nodes, Trachea Midline, JVD, Right Lungs: No rhonchi, No wheeze, No rales, Diminished, - - Symmetric expansion. No dullness to percussion. Cardiovascular: Regular rate, Regular Rhythm, Normal S1, Normal S2, No murmurs, No rub noted, No Gallop Abdomen: Bowel Sounds Present, Soft, Non Tender, Non-Distended, Obese Extremities: No cyanosis, Capillary Refill Less than 3 Seconds, Clubbing, Edema Skin: No rashes, No breakdown Musculoskeletal: No Tenderness to Palpation of Joints or Extremities Lymphatic: No Cervical, Supraclavicular, or Inguinal Adenopathy Neurological: Cranial nerves II-XII grossly intact, Neuro grossly intact, Motor Exam 5/5 strength throughout Psych/Mental Status: Anxious, Impulsive Vital Signs Temp Pulse Resp BP Pulse Ox 36.9 C 75 28 H 142/73 H 92 10/08/18 00:00 10/08/18 08:00 10/08/18 08:00 10/08/18 08:00 10/08/18 08:00 Oxygen Flow Rate (L/min) 6 Oxygen Delivery Method Nasal Cannula Weight: 76.6 kg Body Mass Index (BMI) 28.0 Intake and Output for Last 24 Hours 10/06/18 10/07/18 10/08/18 23:59 23:59 23:59 Intake Total 811 / 811 1427 / 1427 1863 / 1863 Output Total 500 / 500 700 / 700 750 / 750 Balance 311 / 311 727 / 727 1113 / 1113 Labs (Last 48 Hours) 10/06/18 10/06/1819 07:39 07:40 07:40 WBC RBC Hgb Hct MCV MCH MCHC RDW RDW Differential Plt Count MPV Immature Gran % (Auto) Neut % (Auto) Lymph % (Auto) [place] % (Auto) Eos % (Auto) Baso % (Auto) Absolute Neuts (auto) Absolute Lymphs (auto) Total Counted PT INR Specimen Type ISAIAH Sample Site OTHER pH Bicarbonate Actual POC Total CO2 Base Excess O2 Saturation ABG pCO2 ABG pO2 VBG pH 7.39 VBG pO2 21 L VBG O2 Sat (Calc) 29 L VBG O2 Content Pending VBG Base Excess 28 H POC Mix VBG pCO2 Pt Tmp 87.7 H* O2 Delivery Device Nasal Can Liter Flow 8.0 Blood Gas Notified Whom ED Blood Gas Notified Time 738 Sodium Potassium Chloride Carbon Dioxide Anion Gap BUN Creatinine Estim Creat Clear Calc Est GFR (MDRD) Af Amer Est GFR (MDRD) Non-Af BUN/Creatinine Ratio Glucose Hemoglobin A1c 5.8 Calcium Magnesium 2.3 Ammonia B-Natriuretic Peptide Urine Color Urine Clarity Urine pH Ur Specific [place] Urine Protein Urine Glucose (UA) Urine Ketones Urine Occult Blood Urine Nitrite Urine Bilirubin Urine Urobilinogen Ur Leukocyte Esterase Urine RBC Urine WBC Ur Squamous Epith Cells Urine Bacteria Urine Mucus 10/07/18 10/07/18 10/07/18 04:20 04:20 04:20 WBC 4.7 RBC 4.11 L Hgb 11.9 L Hct 41.7 MCV 101.5 H MCH 29.0 MCHC 28.5 L RDW 13.6 RDW Differential 51.4 H Plt Count 152 MPV 11.8 Immature Gran % (Auto) 0.200 Neut % (Auto) 85.6 H Lymph % (Auto) 12.9 L [place] % (Auto) 1.3 Eos % (Auto) 0.0 Baso % (Auto) 0.0 Absolute Neuts (auto) 4.1 Absolute Lymphs (auto) 0.61 L Total Counted Not Reportable PT Cancelled INR Cancelled Specimen Type Sample Site pH Bicarbonate Actual POC Total CO2 Base Excess O2 Saturation ABG pCO2 ABG pO2 VBG pH VBG pO2 VBG O2 Sat (Calc) VBG O2 Content VBG Base Excess POC Mix VBG pCO2 Pt Tmp O2 Delivery Device Liter Flow Blood Gas Notified Whom Blood Gas Notified Time Sodium 143 Potassium 5.3 H Chloride 97 L Carbon Dioxide 42.0 H Anion Gap 4 L BUN 23 H Creatinine 1.17 H Estim Creat Clear Calc 35.88 Est GFR (MDRD) Af Amer 58 L Est GFR (MDRD) Non-Af 48 L BUN/Creatinine Ratio 19.7 Glucose 155 H Hemoglobin A1c Calcium 9.4 Magnesium Ammonia B-Natriuretic Peptide Urine Color Urine Clarity Urine pH Ur Specific [place] Urine Protein Urine Glucose (UA) Urine Ketones Urine Occult Blood Urine Nitrite Urine Bilirubin Urine Urobilinogen Ur Leukocyte Esterase Urine RBC Urine WBC Ur Squamous Epith Cells Urine Bacteria Urine Mucus 10/07/18 10/07/18 10/08/18 04:20 05:45 03:55 WBC 9.9 RBC 4.06 L Hgb 11.4 L Hct 40.2 MCV 99.0 MCH 28.1 MCHC 28.4 L RDW 14.2 RDW Differential 50.2 H Plt Count 176 MPV 11.9 Immature Gran % (Auto) 0.200 Neut % (Auto) 88.9 H Lymph % (Auto) 8.2 L [place] % (Auto) 2.7 Eos % (Auto) 0.0 Baso % (Auto) 0.0 Absolute Neuts (auto) 8.8 H Absolute Lymphs (auto) 0.81 L Total Counted Not Reportable PT 26.9 H INR 2.5 Specimen Type Sample Site pH Bicarbonate Actual POC Total CO2 Base Excess O2 Saturation ABG pCO2 ABG pO2 VBG pH VBG pO2 VBG O2 Sat (Calc) VBG O2 Content VBG Base Excess POC Mix VBG pCO2 Pt Tmp O2 Delivery Device Liter Flow Blood Gas Notified Whom Blood Gas Notified Time Sodium Potassium Chloride Carbon Dioxide Anion Gap BUN Creatinine Estim Creat Clear Calc Est GFR (MDRD) Af Amer Est GFR (MDRD) Non-Af BUN/Creatinine Ratio Glucose Hemoglobin A1c Calcium Magnesium Ammonia B-Natriuretic Peptide 198.2 H Urine Color Urine Clarity Urine pH Ur Specific [place] Urine Protein Urine Glucose (UA) Urine Ketones Urine Occult Blood Urine Nitrite Urine Bilirubin Urine Urobilinogen Ur Leukocyte Esterase Urine RBC Urine WBC Ur Squamous Epith Cells Urine Bacteria Urine Mucus 10/08/18 10/08/18 10/08/18 03:55 03:55 04:25 WBC RBC Hgb Hct MCV MCH MCHC RDW RDW Differential Plt Count MPV Immature Gran % (Auto) Neut % (Auto) Lymph % (Auto) [place] % (Auto) Eos % (Auto) Baso % (Auto) Absolute Neuts (auto) Absolute Lymphs (auto) Total Counted PT 26.5 H INR 2.4 Specimen Type ART Sample Site L Radial pH 7.46 H Bicarbonate Actual 41.9 H POC Total CO2 44 Base Excess 18 H O2 Saturation 92 L ABG pCO2 59.5 H ABG pO2 62 L VBG pH VBG pO2 VBG O2 Sat (Calc) VBG O2 Content VBG Base Excess POC Mix VBG pCO2 Pt Tmp O2 Delivery Device Nasal Can Liter Flow 6.0 Blood Gas Notified Whom [facility] Blood Gas Notified Time 419 Sodium 142 Potassium 5.0 Chloride 100 Carbon Dioxide 37.0 H Anion Gap 5 BUN 39 H Creatinine 1.25 H Estim Creat Clear Calc 33.58 Est GFR (MDRD) Af Amer 54 L Est GFR (MDRD) Non-Af 44 L BUN/Creatinine Ratio 31.2 H Glucose 154 H Hemoglobin A1c Calcium 9.3 Magnesium Ammonia B-Natriuretic Peptide Urine Color Urine Clarity Urine pH Ur Specific [place] Urine Protein Urine Glucose (UA) Urine Ketones Urine Occult Blood Urine Nitrite Urine Bilirubin Urine Urobilinogen Ur Leukocyte Esterase Urine RBC Urine WBC Ur Squamous Epith Cells Urine Bacteria Urine Mucus 10/08/18 10/08/18 05:05 06:02 WBC RBC Hgb Hct MCV MCH MCHC RDW RDW Differential Plt Count MPV Immature Gran % (Auto) Neut % (Auto) Lymph % (Auto) [place] % (Auto) Eos % (Auto) Baso % (Auto) Absolute Neuts (auto) Absolute Lymphs (auto) Total Counted PT INR Specimen Type Sample Site pH Bicarbonate Actual POC Total CO2 Base Excess O2 Saturation ABG pCO2 ABG pO2 VBG pH VBG pO2 VBG O2 Sat (Calc) VBG O2 Content VBG Base Excess POC Mix VBG pCO2 Pt Tmp O2 Delivery Device Liter Flow Blood Gas Notified Whom Blood Gas Notified Time Sodium Potassium Chloride Carbon Dioxide Anion Gap BUN Creatinine Estim Creat Clear Calc Est GFR (MDRD) Af Amer Est GFR (MDRD) Non-Af BUN/Creatinine Ratio Glucose Hemoglobin A1c Calcium Magnesium Ammonia < 10.0 L B-Natriuretic Peptide Urine Color Yellow Urine Clarity Sl Cloudy Urine pH 8.0 Ur Specific [place] 1.015 Urine Protein Negative Urine Glucose (UA) NEGATIVE Urine Ketones Negative Urine Occult Blood Negative Urine Nitrite Negative Urine Bilirubin Negative Urine Urobilinogen Normal Ur Leukocyte Esterase 25 H Urine RBC 0 SEEN Urine WBC 0-5 SEEN Ur Squamous Epith Cells 25-50 SEEN Urine Bacteria 0 SEEN Urine Mucus 0 SEEN Microbiology 10/06/18 10:40 Sputum, Expectorated/Coughed Gram Stain - Final 10/06/18 10:40 Sputum, Expectorated/Coughed Respiratory Culture - Final 10/06/18 10:58 Mucosa - Nasopharyngeal Respiratory Panel (PCR) - Final Clinical Impression(s) from Imaging Studies Chest X-Ray 10/07/18 08:07 IMPRESSION: 1. Stable exam. Electronically Signed: Per Kaiser MD at 11:34 EDT , Service support , Medical Necessity - Tobacco Use Smoking Status: Current every day smoker - Notes currently still smoking ~ 2 cigarettes daily. Tobacco Use: Cigarettes Assessment/Plan All Active Problems (Last Reviewed 04/02/18 @ 08:36 by Pankaj Zimmerman MD) Heme + stool (Acute) Acute on chronic respiratory failure with hypoxia and hypercapnia (Acute) COPD with exacerbation (Acute) Fall (Acute) Fracture of left pelvis (Acute) Closed left hip fracture (Resolved) Left elbow fracture (Acute) Hemorrhagic shock (Resolved) Retroperitoneal bleeding (Resolved) Left hip pain (Acute) Olecranon fracture (Acute) Pubic ramus fracture (Acute) RECOMMENDATIONS: 1. Continue BiPAP with sleep. Okay to take BiPAP breaks during the day 2. Continue scheduled bronchodilators and steroids for now. 3. Okay to continue Coumadin. Check daily INR. 4. Await repeat surface echocardiogram to evaluate for the presence of right-sided heart failure and/or worsening pulmonary hypertension. 5. Continue with diuretic therapy 6. Potential transfer from the intensive care unit later today IMPRESSIONS: 1. Acute on chronic combined respiratory failure There is not appear to be any evidence of an underlying pulmonary infectious process. My concern is that the patient has end-stage COPD noted on pulmonary function testing from 2016 has continued to smoke. Her symptoms and hypoxemia may be the consequence of end-stage disease. I agree with continuing scheduled bronchodilators and steroids for now. Clinical suspicion for concomitant pulmonary hypertension. Echocardiogram is currently pending. Patient would benefit from diuretic therapy. Marginal oxygenation at baseline. 2. End-stage COPD with exacerbation The patient's last FEV1 in 2016 was noted to be 24% of predicted. She has continued to smoke since that time. As noted above, will continue scheduled bronchodilators and IV steroids. 3. Continuous tobacco dependency Smoking cessation is strongly advisable. Nicotine replacement therapy can be offered to the patient while she is admitted to the hospital. 4. History of atrial fibrillation/history of DVT/hypertension/hyperlipidemia Complicates care, management, recovery and prognosis. Okay to continue home medications from my perspective. CODE STATUS was confirmed to be DNR CCA. Code Visit Inpatient E&M: 38919 Subs Hosp L3
[2018-10-08] MEDS: Metoprolol Tartrate 25 MG Tablet 12.5 MG PO ×2 (09:47→22:21)
[2018-10-08] MEDS: guaiFENesin 1,200 MG Tablet 1200 MG PO ×2 (09:49→22:22)
[2018-10-08] MEDS: Furosemide 20 MG Tablet PO (09:49)
[2018-10-08] MEDS: Menthol/Lanolin/Calamine/Znox 113 GM Tube 1 APPLIC TOPICAL (09:49)
--- NOTE | 2018-10-08 10:38 | CASEMGMT ---
SKYLER spoke with patient and her daughter per their request. They had told RN SHANI they would like SNF. TCU is first choice and 2nd choice would be [facility]. SKYLER spoke with Jasmin in TCU and they would have a bed for patient. SKYLER told patient and her daughter this information and that her insurance also has to approve before she could go to TCU. 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 Patient is wondering about assisted living at discharge. After much discussion SKYLER told them that SW will make a referral to [facility] for a Senior Care Care Consultation. SKYLER explained a aircraft sales representative from [facility] talks with them and helps them determine what might be available to patient. They also asked about Medicaid. Apparently when patient was in the [facility] last time after she fell she had to stay and was in her co-pay days. She could not afford this so the [facility] helped her apply for Medicaid. SKYLER told them that once she goes to SNF, if it is starting to look like she will need more than the her 20 days they will help her apply for Medicaid. SKYLER told them SKYLER will update the SW in TCU. Plan: [facility] TCU pending insurance approval. Carisa PADILLA [employer] BANK[employer]
--- NOTE | 2018-10-08 11:20 | CASEMGMT ---
RN CM Assessment Presentation: COPD exacerbation- acute hypoxic and hypercapnic resp failure Intro role of CM and purpose of RN CM assessment to pt and her daughter Sushila. 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 Demographics, PCP and Pharmacy verified. Daughter and patient are concerned for dc home and are considering SNF on dc. RN CM spoke at length with them re: options for dc including SNF, Home Health. PCP: Dr. Clancy Specialists: Dr. Shepard, Pulmonary Preferred Pharmacy: [facility] Insurance: [employer] Prescription Benefit: yes LNOK: DaughterSushila Living Arrangements: Lives in one story condo with no stairs. Moderately independent with ADL's and cooking. Daughter assists when needed, but works during day. Daughter or friend assist with laundry. Transportation: daughter drives pt. DM: rollator, shower chair, grab bars tub/shower. Home Oxygen through [employer]. Call to [facility] to verify oxygen script. States pt has concentrator that goes to 5L and if higher flow concentrator is needed, pt would need new testing showing she requires 6L or more oxygen @ home. Cpap HHC: none Patient DC goals: SNF SW Referral: SNF placement and information requested by family for computer terminal operator care planning. DC PLAN: SNF/TCU
[2018-10-08 13:40] LABS: VBG Oxygen Content > 50 mmol/L (23-33)
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
[2018-10-08] MEDS: Pramipexole Di-HCl 0.125 MG Tablet PO (22:22)
[2018-10-09] VITALS (20 sets, daily range): BP systolic 113–159; BP diastolic 62–98; PULSE 56–155; RESP 12–28; TEMP 36.7–37.3; O2SAT 90–96
--- NOTE | 2018-10-09 00:11 | CPS ---
pt stated she didnt want to wear the bipap tonight.
[2018-10-09] MEDS: 0.9% NaCl Peripheral Flush Adult/Peds IV ×4 (05:08→22:11)
[2018-10-09 06:28] LABS: Absolute Neutrophil Count 7.8 X10^3/uL (2.0-7.7); Eosinophil# 0.01 X10^3/uL; Eosinophils% 0.1 % (0-5); Hematocrit 40.1 % (37-47); Hemoglobin 11.3 g/dl (12.0-15.0); Lymphocyte % 7.9 % (19-41); Mean Corp Hgb Conc 28.2 g/gl (32-36); Mean Corpuscular Volume 99.3 fL (81-99); Mean Platelet Vol. 12.2 fl (6.2-12.0); Monocyte# 0.33 X10^3/uL; Monocyte% 3.7 % (0-10); Neutrophil # 7.76 X10^3/uL (2.7-7.7); Neutrophil % 88.1 % (47-70); Platelet Count 187 K/mm3 (150-450); RBC Distribution Width CV 14.4 % (11.6-14.6); RBC Distribution Width SD 52.4 fl (35.1-43.9); Red Blood Count 4.04 M/mm3 (4.2-5.4); White Blood Count 8.8 K/mm3 (4.4-11.0)
[2018-10-09 06:33] LABS: International Normalized Ratio 2.2; Prothrombin Time (Protime)PT. 24.5 SECONDS (11.7-14.9)
[2018-10-09 06:40] LABS: POSITIVE COUNT NO; POSITIVE DIFFERENTIAL NO; POSITIVE MORPHOLOGY NO
[2018-10-09 06:41] LABS: Anion Gap 5 (5-15); BUN 41 mg/dL (7-18); BUN/Creat Ratio 36.6 RATIO (10-20); Calcium,Total 9.6 mg/dL (8.5-10.1); Chloride 101 mmol/L (98-107); Creatinine, Serum 1.12 mg/dL (0.55-1.02); EST Glomerular Filtration Rate 50 mL/min (>60); Est Glom Filt Rate - Afr Amer 61 mL/min (>60); Estimated Creatinine Clearance 37.48 ml/min; Glucose 153 mg/dL (74-106); Potassium 4.2 mmol/L (3.5-5.1); Sodium Level 142 mmol/L (136-145)
[2018-10-09] MEDS: Ipratropium/Albuterol Sulfate 3 ML AMPUL.NEB INHALATION ×4 (07:16→19:21)
[2018-10-09] MEDS: Metoprolol Tartrate 25 MG Tablet 12.5 MG PO ×2 (09:31→22:05)
[2018-10-09] MEDS: Furosemide 20 MG Tablet PO (09:31)
[2018-10-09] MEDS: Menthol/Lanolin/Calamine/Znox 113 GM Tube 1 APPLIC TOPICAL (09:31)
[2018-10-09] MEDS: guaiFENesin 1,200 MG Tablet 1200 MG PO ×2 (09:31→22:05)
--- NOTE | 2018-10-09 09:32 | PCM.PN.INT ---
Subjective: Patient transferred out of the intensive care unit yesterday. Patient reports subjective improvement in overall condition. Patient is still requiring 6 L nasal cannula to maintain saturations. Minimal coughing is been reported. General: Alert, Oriented x3, Cooperative, No apparent distress, - - Appears older than stated age. HEENT: Atraumatic, PERRLA, EOMI, Normocephalic, - - No scleral icterus or injection noted. Oral: Moist Mucosa, No Gingival or Mucosal Lesions/ Ulcerations Neck: Supple, No JVD, No Nodes, Trachea Midline Lungs: No rhonchi, No rales, Diminished, Wheezes - At end exhalation, - - Symmetric expansion. No dullness to percussion. Cardiovascular: Regular rate, Regular Rhythm, Normal S1, Normal S2, No murmurs, No rub noted, No Gallop Abdomen: Bowel Sounds Present, Soft, Non Tender, Non-Distended, Obese Extremities: No clubbing, No cyanosis, Edema Skin: - - No change from previous Musculoskeletal: No Tenderness to Palpation of Joints or Extremities Lymphatic: No Cervical, Supraclavicular, or Inguinal Adenopathy Neurological: Cranial nerves II-XII grossly intact, Neuro grossly intact, Motor Exam 5/5 strength throughout Psych/Mental Status: Normal Affect, Appropriate Vital Signs Temp Pulse Resp BP Pulse Ox 37.3 C H 76 20 H 113/62 92 10/09/18 09:30 10/09/18 09:30 10/09/18 09:30 10/09/18 09:30 10/09/18 09:30 Oxygen Flow Rate (L/min) 6 Oxygen Delivery Method Nasal Cannula Weight: 75.1 kg Body Mass Index (BMI) 28.0 Intake and Output for Last 24 Hours 10/07/18 10/08/18 10/09/18 23:59 23:59 23:59 Intake Total 1427 / 1427 3061 / 3061 Output Total 700 / 700 1275 / 1275 100 / 100 Balance 727 / 727 1786 / 1786 -100 / -100 Labs (Last 48 Hours) 10/06/18 10/08/18 10/08/18 07:39 03:55 03:55 WBC 9.9 RBC 4.06 L Hgb 11.4 L Hct 40.2 MCV 99.0 MCH 28.1 MCHC 28.4 L RDW 14.2 RDW Differential 50.2 H Plt Count 176 MPV 11.9 Immature Gran % (Auto) 0.200 Neut % (Auto) 88.9 H Lymph % (Auto) 8.2 L [place] % (Auto) 2.7 Eos % (Auto) 0.0 Baso % (Auto) 0.0 Absolute Neuts (auto) 8.8 H Absolute Lymphs (auto) 0.81 L Total Counted Not Reportable PT INR Specimen Type Sample Site pH Bicarbonate Actual POC Total CO2 Base Excess O2 Saturation ABG pCO2 ABG pO2 VBG O2 Content > 50 H O2 Delivery Device Liter Flow Blood Gas Notified Whom Blood Gas Notified Time Sodium 142 Potassium 5.0 Chloride 100 Carbon Dioxide 37.0 H Anion Gap 5 BUN 39 H Creatinine 1.25 H Estim Creat Clear Calc 33.58 Est GFR (MDRD) Af Amer 54 L Est GFR (MDRD) Non-Af 44 L BUN/Creatinine Ratio 31.2 H Glucose 154 H Calcium 9.3 Ammonia Urine Color Urine Clarity Urine pH Ur Specific [place] Urine Protein Urine Glucose (UA) Urine Ketones Urine Occult Blood Urine Nitrite Urine Bilirubin Urine Urobilinogen Ur Leukocyte Esterase Urine RBC Urine WBC Ur Squamous Epith Cells Urine Bacteria Urine Mucus 10/08/18 10/08/18 10/08/18 03:55 04:25 05:05 WBC RBC Hgb Hct MCV MCH MCHC RDW RDW Differential Plt Count MPV Immature Gran % (Auto) Neut % (Auto) Lymph % (Auto) [place] % (Auto) Eos % (Auto) Baso % (Auto) Absolute Neuts (auto) Absolute Lymphs (auto) Total Counted PT 26.5 H INR 2.4 Specimen Type ART Sample Site L Radial pH 7.46 H Bicarbonate Actual 41.9 H POC Total CO2 44 Base Excess 18 H O2 Saturation 92 L ABG pCO2 59.5 H ABG pO2 62 L VBG O2 Content O2 Delivery Device Nasal Can Liter Flow 6.0 Blood Gas Notified Whom [facility] Blood Gas Notified Time 419 Sodium Potassium Chloride Carbon Dioxide Anion Gap BUN Creatinine Estim Creat Clear Calc Est GFR (MDRD) Af Amer Est GFR (MDRD) Non-Af BUN/Creatinine Ratio Glucose Calcium Ammonia < 10.0 L Urine Color Urine Clarity Urine pH Ur Specific [place] Urine Protein Urine Glucose (UA) Urine Ketones Urine Occult Blood Urine Nitrite Urine Bilirubin Urine Urobilinogen Ur Leukocyte Esterase Urine RBC Urine WBC Ur Squamous Epith Cells Urine Bacteria Urine Mucus 10/08/18 10/09/18 10/09/18 06:02 05:35 05:35 WBC 8.8 RBC 4.04 L Hgb 11.3 L Hct 40.1 MCV 99.3 H MCH 28.0 MCHC 28.2 L RDW 14.4 RDW Differential 52.4 H Plt Count 187 MPV 12.2 H Immature Gran % (Auto) 0.200 Neut % (Auto) 88.1 H Lymph % (Auto) 7.9 L [place] % (Auto) 3.7 Eos % (Auto) 0.1 Baso % (Auto) 0.0 Absolute Neuts (auto) 7.8 H Absolute Lymphs (auto) 0.70 L Total Counted Not Reportable PT INR Specimen Type Sample Site pH Bicarbonate Actual POC Total CO2 Base Excess O2 Saturation ABG pCO2 ABG pO2 VBG O2 Content O2 Delivery Device Liter Flow Blood Gas Notified Whom Blood Gas Notified Time Sodium 142 Potassium 4.2 Chloride 101 Carbon Dioxide 36.0 H Anion Gap 5 BUN 41 H Creatinine 1.12 H Estim Creat Clear Calc 37.48 Est GFR (MDRD) Af Amer 61 Est GFR (MDRD) Non-Af 50 L BUN/Creatinine Ratio 36.6 H Glucose 153 H Calcium 9.6 Ammonia Urine Color Yellow Urine Clarity Sl Cloudy Urine pH 8.0 Ur Specific [place] 1.015 Urine Protein Negative Urine Glucose (UA) NEGATIVE Urine Ketones Negative Urine Occult Blood Negative Urine Nitrite Negative Urine Bilirubin Negative Urine Urobilinogen Normal Ur Leukocyte Esterase 25 H Urine RBC 0 SEEN Urine WBC 0-5 SEEN Ur Squamous Epith Cells 25-50 SEEN Urine Bacteria 0 SEEN Urine Mucus 0 SEEN 10/09/18 05:35 WBC RBC Hgb Hct MCV MCH MCHC RDW RDW Differential Plt Count MPV Immature Gran % (Auto) Neut % (Auto) Lymph % (Auto) [place] % (Auto) Eos % (Auto) Baso % (Auto) Absolute Neuts (auto) Absolute Lymphs (auto) Total Counted PT 24.5 H INR 2.2 Specimen Type Sample Site pH Bicarbonate Actual POC Total CO2 Base Excess O2 Saturation ABG pCO2 ABG pO2 VBG O2 Content O2 Delivery Device Liter Flow Blood Gas Notified Whom Blood Gas Notified Time Sodium Potassium Chloride Carbon Dioxide Anion Gap BUN Creatinine Estim Creat Clear Calc Est GFR (MDRD) Af Amer Est GFR (MDRD) Non-Af BUN/Creatinine Ratio Glucose Calcium Ammonia Urine Color Urine Clarity Urine pH Ur Specific [place] Urine Protein Urine Glucose (UA) Urine Ketones Urine Occult Blood Urine Nitrite Urine Bilirubin Urine Urobilinogen Ur Leukocyte Esterase Urine RBC Urine WBC Ur Squamous Epith Cells Urine Bacteria Urine Mucus Microbiology 10/08/18 06:02 Urine Catheter - Catheter Urine Culture - Preliminary Presumptive E. coli 10/06/18 10:40 Sputum, Expectorated/Coughed Gram Stain - Final 10/06/18 10:40 Sputum, Expectorated/Coughed Respiratory Culture - Final Medical Necessity - Tobacco Use Smoking Status: Current every day smoker - Notes currently still smoking ~ 2 cigarettes daily. Tobacco Use: Cigarettes Assessment/Plan All Active Problems (Last Reviewed 04/02/18 @ 08:36 by Pankaj Zimmerman MD) Heme + stool (Acute) Acute on chronic respiratory failure with hypoxia and hypercapnia (Acute) COPD with exacerbation (Acute) Fall (Acute) Fracture of left pelvis (Acute) Closed left hip fracture (Resolved) Left elbow fracture (Acute) Hemorrhagic shock (Resolved) Retroperitoneal bleeding (Resolved) Left hip pain (Acute) Olecranon fracture (Acute) Pubic ramus fracture (Acute) RECOMMENDATIONS: 1. Continue BiPAP with sleep. Okay to take BiPAP breaks during the day 2. Continue scheduled bronchodilators, but wean IV steroids 3. Okay to continue Coumadin. Check daily INR. 4. Await repeat surface echocardiogram to evaluate for the presence of right-sided heart failure and/or worsening pulmonary hypertension. 5. Continue with diuretic therapy 6. Potential transfer from the intensive care unit later today IMPRESSIONS: 1. Acute on chronic combined respiratory failure There is not appear to be any evidence of an underlying pulmonary infectious process. My concern is that the patient has end-stage COPD noted on pulmonary function testing from 2016 has continued to smoke. Her symptoms and hypoxemia may be the consequence of end-stage disease. I agree with continuing scheduled bronchodilators, but will start weaning steroids. Clinical suspicion for concomitant pulmonary hypertension. Echocardiogram showing a preserved EF with diastolic dysfunction, which would be anticipated given patient's comorbidities. Patient would benefit from diuretic therapy. Marginal oxygenation at baseline. 2. End-stage COPD with exacerbation The patient's last FEV1 in 2016 was noted to be 24% of predicted. She has continued to smoke since that time. As noted above, will continue scheduled bronchodilators and IV steroids. Patient was advised that she should never smoke with supplemental oxygen in place. 3. Continuous tobacco dependency Smoking cessation is strongly advisable. Nicotine replacement therapy can be offered to the patient while she is admitted to the hospital. 4. History of atrial fibrillation/history of DVT/hypertension/hyperlipidemia Complicates care, management, recovery and prognosis. Okay to continue home medications from my perspective. CODE STATUS was confirmed to be DNR CCA. Code Visit Inpatient E&M: [id number] Subs Hosp L2
[2018-10-09] MEDS: Cephalexin 500 MG Capsule PO ×3 (10:40→22:05)
--- NOTE | 2018-10-09 10:53 | NURSING ---
Spoke with pharmacist about keflex dosing/timing on sep. Recommended giving 1400 dose at 1700 today.
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
[2018-10-09] MEDS: Pramipexole Di-HCl 0.125 MG Tablet PO (22:05)
[2018-10-10] VITALS (20 sets, daily range): BP systolic 125–138; BP diastolic 67–95; PULSE 57–160; RESP 12–24; TEMP 36.4–36.9; O2SAT 88–98
[2018-10-10] MEDS: Cephalexin 500 MG Capsule PO ×3 (05:07→22:03)
[2018-10-10] MEDS: 0.9% NaCl Peripheral Flush Adult/Peds IV (05:50)
[2018-10-10] MEDS: Ipratropium/Albuterol Sulfate 3 ML AMPUL.NEB INHALATION ×4 (07:24→18:43)
[2018-10-10] MEDS: Menthol/Lanolin/Calamine/Znox 113 GM Tube 1 APPLIC TOPICAL ×2 (09:37→22:12)
[2018-10-10] MEDS: Metoprolol Tartrate 25 MG Tablet 12.5 MG PO ×2 (09:38→22:09)
[2018-10-10] MEDS: Furosemide 20 MG Tablet PO (09:38)
[2018-10-10] MEDS: guaiFENesin 1,200 MG Tablet 1200 MG PO ×2 (09:38→22:03)
--- NOTE | 2018-10-10 10:07 | PCM.PN.PUL ---
Patient Problems: Active and Suspected Problems (Last Reviewed 04/02/18 @ 08:36 by Pankaj Zimmerman MD) Acute on chronic respiratory failure with hypoxia and hypercapnia (Acute) COPD with exacerbation (Acute) Subjective: Patient did okay overnight. Patient saturations continue to improve at rest, but patient reports dyspnea on exertion. No significant change in cough. Patient is denying any dysuria. - Physical Exam General: Alert, Oriented x3, Cooperative, No apparent distress, - - Mild conversational dyspnea. HEENT: Atraumatic, PERRLA, EOMI, Normocephalic, - - Nasal cannula in place. Oral: No Gingival or Mucosal Lesions/ Ulcerations, Dry Mucosa Neck: Supple, No Nodes, Trachea Midline, JVD, Right Lungs: No rhonchi, No wheeze, No rales, Diminished Cardiovascular: Regular rate, Regular Rhythm, Normal S1, Normal S2, No murmurs, No rub noted, No Gallop Abdomen: Bowel Sounds Present, Soft, Non Tender, Non-Distended Extremities: No cyanosis, Clubbing, Edema - Trace lower extremity Skin: - - No significant change compared to previous Musculoskeletal: No Tenderness to Palpation of Joints or Extremities Lymphatic: No Cervical, Supraclavicular, or Inguinal Adenopathy Neurological: Cranial nerves II-XII grossly intact, Neuro grossly intact, Motor Exam 5/5 strength throughout Psych/Mental Status: Appropriate, Flat Affect Vital Signs Temp Pulse Resp BP Pulse Ox 36.9 C 91 20 H 138/69 H 96 10/10/18 09:34 10/10/18 09:38 10/10/18 09:34 10/10/18 09:34 10/10/18 09:34 Oxygen Flow Rate (L/min) 6 Oxygen Delivery Method Nasal Cannula Weight: 66.9 kg Body Mass Index (BMI) 28.0 Intake and Output for Last 24 Hours 10/08/18 10/09/18 10/10/18 23:59 23:59 23:59 Intake Total 3061 / 3061 1227 / 1227 Output Total 1275 / 1275 100 / 100 0 / 0 Balance 1786 / 1786 1127 / 1127 Microbiology Past 72 Hours 10/08/18 06:02 Urine Culture - Final Urine Catheter - Catheter Presumptive E. coli 10/06/18 10:40 Gram Stain - Final Sputum, Expectorated/Coughed Respiratory Culture - Final Medical Necessity - Tobacco Use Smoking Status: Current every day smoker - Notes currently still smoking ~ 2 cigarettes daily. Tobacco Use: Cigarettes Assessment/Plan All Active Problems (Last Reviewed 04/02/18 @ 08:36 by Pankaj Zimmerman MD) Heme + stool (Acute) Acute on chronic respiratory failure with hypoxia and hypercapnia (Acute) COPD with exacerbation (Acute) Fall (Acute) Fracture of left pelvis (Acute) Closed left hip fracture (Resolved) Left elbow fracture (Acute) Hemorrhagic shock (Resolved) Retroperitoneal bleeding (Resolved) Left hip pain (Acute) Olecranon fracture (Acute) Pubic ramus fracture (Acute) RECOMMENDATIONS: 1. Continue BiPAP with sleep. Okay to take BiPAP breaks during the day 2. Continue scheduled bronchodilators, but transition to p.o. steroids. 3. Okay to continue Coumadin. Check daily INR. 4. Await repeat surface echocardiogram to evaluate for the presence of right-sided heart failure and/or worsening pulmonary hypertension. 5. Continue with diuretic therapy 6. Steroids over the next 12-14 days IMPRESSIONS: 1. Acute on chronic combined respiratory failure There is not appear to be any evidence of an underlying pulmonary infectious process. My concern is that the patient has end-stage COPD noted on pulmonary function testing from 2016 has continued to smoke. Her symptoms and hypoxemia may be the consequence of end-stage disease. I agree with continuing scheduled bronchodilators, but will start weaning steroids. Clinical suspicion for concomitant pulmonary hypertension. Echocardiogram showing a preserved EF with diastolic dysfunction, which would be anticipated given patient's comorbidities. Patient would benefit from continued diuretic therapy. Marginal oxygenation at baseline. Will transition to p.o. steroids. 2. End-stage COPD with exacerbation The patient's last FEV1 in 2016 was noted to be 24% of predicted. She has continued to smoke since that time. As noted above, will continue scheduled bronchodilators, but transition to p.o. steroids. This can be weaned over the next 12-14 days. Patient was advised that she should never smoke with supplemental oxygen in place. 3. Continuous tobacco dependency Smoking cessation is strongly advisable. Nicotine replacement therapy can be offered to the patient while she is admitted to the hospital. 4. History of atrial fibrillation/history of DVT/hypertension/hyperlipidemia Complicates care, management, recovery and prognosis. Okay to continue home medications from my perspective. CODE STATUS was confirmed to be DNR CCA. Code Visit Inpatient E&M: 58008 Subs Hosp L2
[2018-10-10] MEDS: predniSONE 20 MG Tablet 40 MG PO (12:12)
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
--- NOTE | 2018-10-10 18:11 | EKG12_ITS ---
Test Reason : RHYTHM CHANGE Blood Pressure : / mmHG Vent. Rate : 101 BPM Atrial Rate : 101 BPM P-R Int : 134 ms QRS Dur : 080 ms QT Int : 324 ms P-R-T Axes : 042 023 063 degrees QTc Int : 420 ms Sinus tachycardia with Premature atrial complexes Otherwise normal ECG When compared with ECG of 10-OCT-2018 18:49, MANUAL COMPARISON REQUIRED, DATA IS UNCONFIRMED Confirmed by JUNAID ARMAS, JENN ([id number]), content editor YANA MOORE ([id number]) on 10/15/2018 1:17:57 PM Referred By: DR NEGRETE Confirmed By:JENN QUIROGA MD
--- NOTE | 2018-10-10 19:11 | EKG12_ITS ---
Test Reason : RHYTHM CHANGE Blood Pressure : / mmHG Vent. Rate : 093 BPM Atrial Rate : 093 BPM P-R Int : 128 ms QRS Dur : 082 ms QT Int : 336 ms P-R-T Axes : 053 017 060 degrees QTc Int : 417 ms Sinus rhythm with marked sinus arrhythmia Otherwise normal ECG When compared with ECG of 10-OCT-2018 18:48, MANUAL COMPARISON REQUIRED, DATA IS UNCONFIRMED Confirmed by JUNAID ARMAS, JENN ([id number]), supervising editor trailer YANA MOORE ([id number]) on 10/15/2018 1:18:15 PM Referred By: DR NEGRETE Confirmed By:JENN QUIROGA MD
[2018-10-10] MEDS: Pramipexole Di-HCl 0.125 MG Tablet PO (22:03)
--- NOTE | 2018-10-10 23:05 | NURSING ---
Around time of PM med pass, pt noted to be satting in the mid 80s on 6L NC. Pt back up to 88%. Cheryl from respiratory in shortly after to put pt on bipap.
[2018-10-11] VITALS (21 sets, daily range): BP systolic 120–139; BP diastolic 69–89; PULSE 49–114; RESP 12–20; TEMP 36.6–37.1; O2SAT 6–97
[2018-10-11] MEDS: Cephalexin 500 MG Capsule PO ×3 (05:13→22:04)
[2018-10-11 05:40] LABS: Hemoglobin 11.4 g/dl (12.0-15.0); Red Blood Count 4.03 M/mm3 (4.2-5.4); White Blood Count 8.7 K/mm3 (4.4-11.0)
[2018-10-11 05:41] LABS: Differential Indicated SCAN CRITERIA MET; Hematocrit 41.6 % (37-47); Lymphocyte % 6.7 % (19-41); Mean Corp Hgb Conc 27.4 g/gl (32-36); Mean Corpuscular Hgb 28.3 pg (27.0-32.0); Mean Corpuscular Volume 103.2 fL (81-99); Mean Platelet Vol. 11.5 fl (6.2-12.0); Neutrophil % 82.6 % (47-70); POSITIVE COUNT NO; POSITIVE DIFFERENTIAL YES; POSITIVE MORPHOLOGY NO; Platelet Count 159 K/mm3 (150-450); RBC Distribution Width SD 51.8 fl (35.1-43.9)
[2018-10-11 05:42] LABS: Absolute Lymphocyte Count 0.58 X10^3/ul (0.83-4.51); Absolute Neutrophil Count 7.2 X10^3/uL (2.0-7.7); Lymphocyte # 0.58 X10^3/ul (4.0); Monocyte# 0.87 X10^3/uL
[2018-10-11 05:44] LABS: Anion Gap 2 (5-15); BUN 46 mg/dL (7-18); BUN/Creat Ratio 35.9 RATIO (10-20); Calcium,Total 9.1 mg/dL (8.5-10.1); Chloride 102 mmol/L (98-107); Creatinine, Serum 1.28 mg/dL (0.55-1.02); EST Glomerular Filtration Rate 43 mL/min (>60); Est Glom Filt Rate - Afr Amer 52 mL/min (>60); Estimated Creatinine Clearance 32.79 ml/min; Glucose 136 mg/dL (74-106); Potassium 4.8 mmol/L (3.5-5.1); Sodium Level 145 mmol/L (136-145)
[2018-10-11 05:51] LABS: Magnesium 2.4 mg/dL (1.6-2.6)
[2018-10-11] MEDS: Ipratropium/Albuterol Sulfate 3 ML AMPUL.NEB INHALATION ×4 (07:05→18:51)
--- NOTE | 2018-10-11 08:39 | PN_ITS ---
Patient Problems: Active and Suspected Problems (Last Reviewed 04/02/18 @ 08:36 by Pankaj Zimmerman MD) Acute on chronic respiratory failure with hypoxia and hypercapnia (Acute) COPD with exacerbation (Acute) Subjective: Patient did okay overnight. No acute issues were reported. Patient has been using the BiPAP overnight and feels this may be improving her daily symptoms. Patient remains on 6 L nasal cannula. - Physical Exam General: Alert, Cooperative, No apparent distress, - - No conversational dyspnea appreciated. HEENT: Atraumatic, PERRLA, EOMI, Normocephalic, - - No scleral icterus or injection noted. Oral: Moist Mucosa, No Gingival or Mucosal Lesions/ Ulcerations Neck: Supple, No JVD, No Nodes, Trachea Midline Lungs: No rhonchi, No wheeze, No rales, Diminished, - - Symmetric expansion. Cardiovascular: Regular rate, Regular Rhythm, Normal S1, Normal S2, No murmurs, No rub noted, No Gallop Abdomen: Bowel Sounds Present, Soft, Non Tender, Non-Distended Extremities: No cyanosis, Clubbing, Edema - Improving Skin: - - No significant change Musculoskeletal: No Tenderness to Palpation of Joints or Extremities Lymphatic: No Cervical, Supraclavicular, or Inguinal Adenopathy Neurological: Cranial nerves II-XII grossly intact, Neuro grossly intact, Motor Exam 5/5 strength throughout Psych/Mental Status: Appropriate, Flat Affect Vital Signs Temp Pulse Resp BP Pulse Ox 36.6 C 98 16 139/69 H 96 10/11/18 04:50 10/11/18 07:10 10/11/18 07:10 10/11/18 04:50 10/11/18 04:50 Oxygen Flow Rate (L/min) 7 Oxygen Delivery Method Nasal Cannula Weight: 76.9 kg Body Mass Index (BMI) 28.0 Intake and Output for Last 24 Hours 10/09/18 10/10/18 10/11/18 23:59 23:59 23:59 Intake Total 1227 / 1227 1070 / 1070 0 / 0 Output Total 100 / 100 0 / 0 Balance 1127 / 1127 1070 / 1070 0 / 0 Microbiology Past 72 Hours 10/08/18 06:02 Urine Culture - Final Urine Catheter - Catheter Presumptive E. coli 10/06/18 10:40 Gram Stain - Final Sputum, Expectorated/Coughed Respiratory Culture - Final Laboratory Tests Past 24 Hrs 10/11/18 10/11/18 10/11/18 05:05 05:05 05:05 WBC 8.7 RBC 4.03 L Hgb 11.4 L Hct 41.6 MCV 103.2 H MCH 28.3 MCHC 27.4 L RDW 14.0 RDW Differential 51.8 H Plt Count 159 MPV 11.5 Immature Gran % (Auto) 0.700 Neut % (Auto) 82.6 H Lymph % (Auto) 6.7 L [place] % (Auto) 10.0 Eos % (Auto) 0.0 Baso % (Auto) 0.0 Absolute Neuts (auto) 7.2 Absolute Lymphs (auto) 0.58 L Total Counted Not Reportable Differential Comment Sodium 145 Potassium 4.8 Chloride 102 Carbon Dioxide 41.0 H Anion Gap 2 L BUN 46 H Creatinine 1.28 H Estim Creat Clear Calc 32.79 Est GFR (MDRD) Af Amer 52 L Est GFR (MDRD) Non-Af 43 L BUN/Creatinine Ratio 35.9 H Glucose 136 H Calcium 9.1 Magnesium 2.4 Medical Necessity - Tobacco Use Smoking Status: Current every day smoker - Notes currently still smoking ~ 2 cigarettes daily. Tobacco Use: Cigarettes Assessment/Plan All Active Problems (Last Reviewed 04/02/18 @ 08:36 by Pankaj Zimmerman MD) Heme + stool (Acute) Acute on chronic respiratory failure with hypoxia and hypercapnia (Acute) COPD with exacerbation (Acute) Fall (Acute) Fracture of left pelvis (Acute) Closed left hip fracture (Resolved) Left elbow fracture (Acute) Hemorrhagic shock (Resolved) Retroperitoneal bleeding (Resolved) Left hip pain (Acute) Olecranon fracture (Acute) Pubic ramus fracture (Acute) RECOMMENDATIONS: 1. Continue BiPAP with sleep. 2. Continue scheduled bronchodilators, wean p.o. steroids over the next 12- 14 days. 3. Okay to continue Coumadin. Check INR tomorrow. 4. Continue with diuretic therapy 6. Patient can follow-up as an outpatient for testing for possible nocturnal BiPAP IMPRESSIONS: 1. Acute on chronic combined respiratory failure There is not appear to be any evidence of an underlying pulmonary infectious process. My concern is that the patient has end-stage COPD noted on pulmonary function testing from 2016 has continued to smoke. Her symptoms and hypoxemia may be the consequence of end-stage disease. Patient can continue on diuretic therapy. Patient would benefit from nocturnal BiPAP on discharge, but patient would need to follow-up with us for this to be arranged. 2. End-stage COPD with exacerbation The patient's last FEV1 in 2015 was noted to be 24% of predicted. She has continued to smoke since that time. As noted above, will continue scheduled bronchodilators, but transitioned to p.o. steroids. This can be weaned over the next 12-14 days. Patient was advised that she should never smoke with supplemental oxygen in place. 3. Continuous tobacco dependency Smoking cessation is strongly advisable. Nicotine replacement therapy can be offered to the patient while she is admitted to the hospital. 4. History of atrial fibrillation/history of DVT/hypertension/hyperlipidemia Complicates care, management, recovery and prognosis. Okay to continue home medications from my perspective. CODE STATUS was confirmed to be DNR CCA. Code Visit Inpatient E&M: 71163 Subs Hosp L2
[2018-10-11] MEDS: Furosemide 20 MG Tablet PO (09:44)
[2018-10-11] MEDS: predniSONE 20 MG Tablet 40 MG PO (09:44)
[2018-10-11] MEDS: guaiFENesin 1,200 MG Tablet 1200 MG PO ×2 (09:44→22:04)
[2018-10-11] MEDS: Menthol/Lanolin/Calamine/Znox 113 GM Tube 1 APPLIC TOPICAL ×2 (09:45→22:07)
[2018-10-11] MEDS: Metoprolol Tartrate 25 MG Tablet 12.5 MG PO ×2 (09:45→22:04)
--- NOTE | 2018-10-11 10:39 | PCM.TXEXTCAR ---
- Diet 10/06/18 10:33 Diet: Regular Diet Food consistency:: Regular Liquid Consistency:: Regular/Thin - Routine Orders/Code Status Routine Lab Work: BMP, INR Code Status: DNC-A - Wound(s) Forehead Wound Type: Scabs - Therapies Physical Therapy: Eval and Treat Occupational Therapy: Eval and Treat Speech Therapy: Eval and Treat - Allergies/Procedures Done in Hospital Allergies/Adverse Reactions: Allergies metformin Adverse Reaction (Verified 10/06/18 07:13) Diarrhea Procedures: 2-D Echocardiogram - Type of Care/Length of Stay Estimated LOS: Convalescent Care Less Than 30 days Type of Care Needed: Skilled Rehab Potential: Good Prognosis: Good - Additional Orders/Day of Discharge Day of Discharge: 10/11/18 - Dietary and Speech Recommendations Dietitian Recommendations/Changes: Rec continue liberal Regular diet d/t s/s of malnutrition. Continue Ensure Enlive 120 mL 4x/day for additional calories/protein if consumed. - Follow Up Care Primary Care Physician: Lisa Clancy MD [Primary Care Provider] - Please follow up with your Primary Care Physician in: 3-5 days
--- NOTE | 2018-10-11 11:09 | PHA.DC.MR ---
Pharmacy Service has performed discharge medication reconciliation for this patient upon transfer to TCU The patient's discharge medication list was reviewed for discrepancies and discrepancies were resolved. Home Medications Metoprolol Tartrate 12.5 mg PO BID 11/25/16 Umeclidinium Brm/Vilanterol Tr [Anoro Ellipta 62.5-25 Mcg INH] 1 ea INHALATION DAILY 11/25/16 Acetaminophen [Tylenol] 1,000 mg PO Q8H PRN PRN tablet 01/03/17 warfarin 5 mg tablet 5 mg PO SUMOTUTHFR tab 03/02/18 warfarin 7.5 mg tablet 7.5 mg PO WESA tab 03/02/18 albuterol sulfate HFA 90 mcg/actuation aerosol inhaler 2 puff INHALATION Q6H PRN #18 g 04/05/18 Potassium Chloride 10 meq PO BID 10/06/18 Cephalexin [Keflex] 500 mg PO Q8 capsule 10/11/18 Ensure Enlive 120 ml PO 4X/DAY liquid 10/11/18 Furosemide 20 mg PO DAILY #0 10/11/18 predniSONE tablet 40 mg PO DAILY@0800 tablet 10/11/18
[2018-10-11 11:12] LABS: International Normalized Ratio 1.8; Prothrombin Time (Protime)PT. 20.7 SECONDS (11.7-14.9)
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
[2018-10-11] MEDS: Acetaminophen 325 MG Tablet 650 MG PO (14:43)
--- NOTE | 2018-10-11 15:29 | CASEMGMT ---
Still awaiting insurance approval. However, if patient is denied, SW will have to talk with patient's daughter to see if patient can go home with home health or if we will need to apply for Medicaid and patient go to a different SNF on pending Medicaid. Carisa PADILLA MSW
[2018-10-11] MEDS: Pramipexole Di-HCl 0.125 MG Tablet PO (22:04)
[2018-10-12] VITALS (11 sets, daily range): BP systolic 131–154; BP diastolic 73–99; PULSE 49–97; RESP 12–20; TEMP 36.6–37.1; O2SAT 94–98
[2018-10-12] MEDS: Cephalexin 500 MG Capsule PO ×2 (05:07→14:24)
[2018-10-12 05:27] LABS: International Normalized Ratio 2.1; Prothrombin Time (Protime)PT. 23.6 SECONDS (11.7-14.9)
[2018-10-12] MEDS: Ipratropium/Albuterol Sulfate 3 ML AMPUL.NEB INHALATION ×2 (06:57→10:55)
--- NOTE | 2018-10-12 08:30 | PN_ITS ---
Patient Problems: Active and Suspected Problems (Last Reviewed 04/02/18 @ 08:36 by Pankaj Zimmerman MD) Acute on chronic respiratory failure with hypoxia and hypercapnia (Acute) COPD with exacerbation (Acute) Subjective: Patient overall is grossly unchanged compared to yesterday. Still requiring 5-6 L nasal cannula during the day, but this is her baseline. Patient has been using BiPAP overnight. No bleeding has been reported. Urine output is inaccurate, but weight appears to be trending up. - Physical Exam General: Alert, Cooperative, No apparent distress, - - No conversational dyspnea HEENT: Atraumatic, PERRLA, EOMI, Normocephalic, - - No scleral icterus or injection Oral: Moist Mucosa, No Gingival or Mucosal Lesions/ Ulcerations Neck: Supple, No Nodes, Trachea Midline, JVD, Right Lungs: No rhonchi, No wheeze, No rales, Diminished, - - Symmetric expansion. No dullness to percussion. Cardiovascular: Normal S1, Normal S2, No murmurs, Irregular Rate, No rub noted, No Gallop Abdomen: Bowel Sounds Present, Soft, Non Tender, Non-Distended, Obese Extremities: No cyanosis, Clubbing, Edema Skin: - - No significant change compared to previous Musculoskeletal: No Tenderness to Palpation of Joints or Extremities Lymphatic: No Cervical, Supraclavicular, or Inguinal Adenopathy Neurological: Cranial nerves II-XII grossly intact, Neuro grossly intact, Motor Exam 5/5 strength throughout Psych/Mental Status: Normal Affect, Appropriate Vital Signs Temp Pulse Resp BP Pulse Ox 36.6 C 53 L 18 131/73 H 95 10/12/18 04:00 10/12/18 07:00 10/12/18 06:57 10/12/18 04:00 10/12/18 06:57 Oxygen Flow Rate (L/min) 6 Oxygen Delivery Method Bi-pap Weight: 77.5 kg Body Mass Index (BMI) 28.0 Intake and Output for Last 24 Hours 10/10/18 10/11/18 10/12/18 23:59 23:59 23:59 Intake Total 1070 / 1070 1140 / 1140 120 / 120 Output Total 0 / 0 Balance 1070 / 1070 1140 / 1140 120 / 120 Microbiology Past 72 Hours 10/08/18 06:02 Urine Culture - Final Urine Catheter - Catheter Presumptive E. coli Laboratory Tests Past 24 Hrs 10/11/18 10/12/18 05:05 04:32 PT 20.7 H 23.6 H INR 1.8 2.1 Medical Necessity - Tobacco Use Smoking Status: Current every day smoker - Notes currently still smoking ~ 2 cigarettes daily. Tobacco Use: Cigarettes Assessment/Plan All Active Problems (Last Reviewed 04/02/18 @ 08:36 by Pankaj Zimmerman MD) Heme + stool (Acute) Acute on chronic respiratory failure with hypoxia and hypercapnia (Acute) COPD with exacerbation (Acute) Fall (Acute) Fracture of left pelvis (Acute) Closed left hip fracture (Resolved) Left elbow fracture (Acute) Hemorrhagic shock (Resolved) Retroperitoneal bleeding (Resolved) Left hip pain (Acute) Olecranon fracture (Acute) Pubic ramus fracture (Acute) RECOMMENDATIONS: 1. Continue BiPAP with sleep. 2. Continue scheduled bronchodilators, wean p.o. steroids over the next 12- 14 days. 3. Okay to continue Coumadin. Check INR tomorrow. 4. May need increase in diuretic therapy with recheck of chemistries in 1-2 days 6. Patient can follow-up as an outpatient for testing for possible nocturnal BiPAP IMPRESSIONS: 1. Acute on chronic combined respiratory failure There is not appear to be any evidence of an underlying pulmonary infectious process. My concern is that the patient has end-stage COPD noted on pulmonary function testing from 2016 has continued to smoke. Her symptoms and hypoxemia may be the consequence of end-stage disease. Patient can continue on diuretic therapy. Patient's weight has been increasing over the course of the hospitalization. May consider increasing diuretic therapy, but electrolytes will need to be checked in 1-2 days. Patient would benefit from nocturnal BiPAP on discharge, but patient would need to follow-up with us for this to be arranged. BiPAP should be continued at the [facility]. 2. End-stage COPD with exacerbation The patient's last FEV1 in 2015 was noted to be 24% of predicted. She has continued to smoke since that time. As noted above, will continue scheduled bronchodilators, but transitioned to p.o. steroids. This can be weaned over the next 12-14 days. Patient was advised that she should never smoke with supplemental oxygen in place. 3. Continuous tobacco dependency Smoking cessation is strongly advisable. Nicotine replacement therapy can be offered to the patient while she is admitted to the hospital. 4. History of atrial fibrillation/history of DVT/hypertension/hyperlipidemia Complicates care, management, recovery and prognosis. Okay to continue home medications from my perspective. CODE STATUS was confirmed to be DNR CCA. Code Visit Inpatient E&M: 53591 Subs Hosp L2
[2018-10-12] MEDS: predniSONE 20 MG Tablet 40 MG PO (09:13)
[2018-10-12] MEDS: Furosemide 20 MG Tablet PO (09:14)
[2018-10-12] MEDS: guaiFENesin 1,200 MG Tablet 1200 MG PO (09:14)
[2018-10-12] MEDS: Menthol/Lanolin/Calamine/Znox 113 GM Tube 1 APPLIC TOPICAL (09:14)
[2018-10-12] MEDS: Metoprolol Tartrate 25 MG Tablet 12.5 MG PO (09:21)
--- NOTE | 2018-10-12 09:47 | CASEMGMT ---
SKYLER called patient's daughter, Sushila. SKYLER let her know that there is a good possibility insurance may deny her mom to go to a intermediate. SKYLER told her they may review her therapy notes and feel she is appropriate for home with home health. SKYLER told her if that were to happen the options would then be: 1. Complete Medicaid application and patient go to SNF on pending Medicaid. However, not TCU as they do not take Medicaid. 2. Home with home health and SW make a referral to [facility] for detention care planning. SW told her SW will let her know as soon as SKYLER hears something. Carisa PADILLA [employer]STRUCTOR
--- NOTE | 2018-10-12 10:15 | CASEMGMT ---
Patient was approved to go to [facility]. KSYLER notified RN and patient. SW also called patient's daughter and let her know. SW did fax a referral to [facility] requesting a park interpretive ranger care assessment. SW has not been able to complete Medicaid application as patient's daughter works all day and patient has not been able to complete on her own. SW will let TCU SW know information. Plan: [facility] under skilled level of care. Carisa PADILLA MSW
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
[2018-10-12] MEDS: Mag Hydrox/Al Hydrox/Simeth 30 ML UDC PO (14:24)
== END 2018-10-12 15:16 | disposition skilled nursing facility (03) | DRG 189 ==
LOC: ED 09:17 → ICU 09:23 → PCU 10-08 16:24
PROVIDERS: Hospitalist; Internal Medicine; Internal Medicine Critical Care Medicine; Admitting Provider Family Medicine; Emergency Provider Emergency Medicine; Family Provider Internal Medicine; PCP Internal Medicine; Visit Provider Family Medicine
DX: J96.21 Acute and chronic respiratory failure with hypoxia (principal); J44.1 Chronic obstructive pulmonary disease with (acute) exacerbation; N39.0 Urinary tract infection, site not specified; Z99.81 Dependence on supplemental oxygen; J96.22 Acute and chronic respiratory failure with hypercapnia; F17.210 Nicotine dependence, cigarettes, uncomplicated; I10 Essential (primary) hypertension; Z66 Do not resuscitate; Z86.718 Personal history of other venous thrombosis and embolism; Z86.711 Personal history of pulmonary embolism; Z79.01 Long term (current) use of anticoagulants; Z95.828 Presence of other vascular implants and grafts
CPT/HCPCS: 36415; 36600; 71045; 80048; 81001; 82140; 82803; 83036; 83605; 83735; 83880; 84484; 85025; 85027; 85610; 87070; 87086; 87088; 87186; 87205; 87633; 93005; 93306; 94002; 94003; 94640; 97161; 97165; 97530; 97535; 97802; 99285; 99406; J7030; Q9957; A4216

== ENCOUNTER 2018-10-12 15:30 | Inpatient (IN) | payer MEDICARE, SELFPAY ==
[2018-10-06 10:49] VITALS: BMI 28.0
[2018-10-12 15:40] VITALS: O2SAT 94
[2018-10-12 15:45] VITALS: BP 139/82; PULSE 102; PULSE 85; RESP 18; RESP 24; TEMP 36.6; O2SAT 86; O2SAT 98; BMI 28.0
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
[2018-10-12 17:33] VITALS: BP 139/82; PULSE 102
[2018-10-12] MEDS: Metoprolol Tartrate 25 MG Tablet 12.5 MG PO (17:33)
[2018-10-12] MEDS: Senna/Docusate Sodium 1 Tablet PO (17:33)
[2018-10-12] MEDS: guaiFENesin 1,200 MG Tablet 1200 MG PO (18:20)
[2018-10-12] MEDS: Cephalexin 500 MG Capsule PO (22:10)
[2018-10-13] VITALS (7 sets, daily range): BP systolic 115–156; BP diastolic 58–63; PULSE 52–83; RESP 18–28; TEMP 36.9; O2SAT 90–93; BMI 29.0
[2018-10-13] MEDS: Senna/Docusate Sodium 1 Tablet PO ×2 (05:26→17:43)
[2018-10-13] MEDS: Furosemide 20 MG Tablet PO (05:26)
[2018-10-13] MEDS: Nystatin Powder 15gm Bottle 1 APPLIC TOPICAL ×3 (05:26→21:20)
[2018-10-13] MEDS: guaiFENesin 1,200 MG Tablet 1200 MG PO ×2 (05:26→17:43)
[2018-10-13] MEDS: Polyethylene Glycol 3350 17 GM PACKET PO (05:27)
[2018-10-13] MEDS: Menthol/Lanolin/Calamine/Znox 113 GM Tube 1 APPLIC TOPICAL ×3 (05:28→21:19)
[2018-10-13] MEDS: Cephalexin 500 MG Capsule PO (05:29)
[2018-10-13] MEDS: Metoprolol Tartrate 25 MG Tablet 12.5 MG PO ×2 (05:33→17:41)
[2018-10-13] MEDS: Ipratropium/Albuterol Sulfate 3 ML AMPUL.NEB INHALATION ×3 (06:34→19:13)
[2018-10-13 07:38] LABS: Absolute Lymphocyte Count 1.33 X10^3/ul (0.83-4.51); Absolute Neutrophil Count 9.3 X10^3/uL (2.0-7.7); Basophil# 0.01 X10^3/uL; Basophil% 0.1 % (0-1); Eosinophil# 0.05 X10^3/uL; Eosinophils% 0.4 % (0-5); Hematocrit 41.3 % (37-47); Hemoglobin 11.9 g/dl (12.0-15.0); Lymphocyte # 1.33 X10^3/ul (4.0); Lymphocyte % 11.3 % (19-41); Mean Corp Hgb Conc 28.8 g/gl (32-36); Mean Corpuscular Hgb 28.9 pg (27.0-32.0); Mean Corpuscular Volume 100.2 fL (81-99); Mean Platelet Vol. 11.4 fl (6.2-12.0); Monocyte# 1.01 X10^3/uL; Monocyte% 8.6 % (0-10); Neutrophil # 9.26 X10^3/uL (2.7-7.7); Neutrophil % 78.6 % (47-70); Platelet Count 177 K/mm3 (150-450); RBC Distribution Width CV 14.2 % (11.6-14.6); RBC Distribution Width SD 52.1 fl (35.1-43.9); Red Blood Count 4.12 M/mm3 (4.2-5.4); White Blood Count 11.8 K/mm3 (4.4-11.0)
[2018-10-13 07:42] LABS: Anion Gap 0 (5-15); BUN 46 mg/dL (7-18); BUN/Creat Ratio 35.1 RATIO (10-20); Calcium,Total 9.3 mg/dL (8.5-10.1); Chloride 100 mmol/L (98-107); Creatinine, Serum 1.31 mg/dL (0.55-1.02); EST Glomerular Filtration Rate 42 mL/min (>60); Est Glom Filt Rate - Afr Amer 51 mL/min (>60); Estimated Creatinine Clearance 32.04 ml/min; Glucose 134 mg/dL (74-106); POSITIVE COUNT NO; POSITIVE DIFFERENTIAL NO; POSITIVE MORPHOLOGY NO; Potassium 5.1 mmol/L (3.5-5.1); Sodium Level 144 mmol/L (136-145)
[2018-10-13] MEDS: predniSONE 10 MG Tablet PO (10:10)
[2018-10-13] MEDS: Tuberculin,Purif.prot.deriv. 50 TU/ML Vial 5 ML ID (12:12)
[2018-10-13] MEDS: Acetaminophen 500 MG Tablet 1000 MG PO (21:18)
[2018-10-14] VITALS (7 sets, daily range): BP systolic 130–136; BP diastolic 69–73; PULSE 62–94; RESP 18–22; TEMP 36.8; O2SAT 91–94
[2018-10-14] MEDS: Furosemide 20 MG Tablet PO (05:16)
[2018-10-14] MEDS: Metoprolol Tartrate 25 MG Tablet 12.5 MG PO ×2 (05:16→17:25)
[2018-10-14] MEDS: Nystatin Powder 15gm Bottle 1 APPLIC TOPICAL ×3 (05:17→20:51)
[2018-10-14] MEDS: Menthol/Lanolin/Calamine/Znox 113 GM Tube 1 APPLIC TOPICAL ×3 (05:17→20:50)
[2018-10-14] MEDS: guaiFENesin 1,200 MG Tablet 1200 MG PO ×2 (05:17→17:25)
[2018-10-14] MEDS: Ipratropium/Albuterol Sulfate 3 ML AMPUL.NEB INHALATION ×3 (07:27→19:45)
[2018-10-14] MEDS: predniSONE 10 MG Tablet PO (08:45)
--- NOTE | 2018-10-14 13:46 | CASEMGMT ---
SOCIAL WORK NOTE ASSESSMENT COMPLETED. RECEIVED PERMISSION FROM PATIENT TO CALL AND SPEAK WITH DAUGHTER, NICOLE. CALL TO NICOLE, NO ANSWER, LEFT VOICEMAIL. JOANNA BARGER, MAINTENANCE JOB TITLES, BALLASTER.
--- NOTE | 2018-10-14 14:14 | CASEMGMT ---
Addendum entered by Nataliia Barger 10/14/18 14:36: DAUGHTER REPORTS IS PATIENT'S HPOA AND COPY HAS BEEN GIVEN TO [facility]. DAUGHTER INTERESTED IN PATIENT RECEIVING MORE INFORMATION ON LIVING WILL. Original Note: SOCIAL WORK NOTE RECEIVED CALL BACK FROM PT'S DAUGHTER, NICOLE. PER NICOLE, PRIOR TO ADMISSION, PATIENT WAS HAVING A NEIGHBOR DO MOST OF HER HOME MANAGEMENT TASKS. DAUGHTER HAS SOME CONCERNS WITH PATIENT RETURNING BACK TO APARTMENT UPON D/C. DISCUSSED OPTION FOR ASSISTED LIVING. DAUGHTER ALSO MENTIONED PATIENT WITH INCREASED FORGETFULNESS. EDUCATION AND SUPPORT PROVIDED. INFORMED DAUGHTER TCU EVP HEAD OF [employer] WILL BE FOLLOWING UP. NO OTHER QUESTIONS OR CONCERNS AT THIS TIME. NATALIIA BARGER, [employer] DRIER, ADOPTION COUNSELOR.
[2018-10-15] MEDS: Furosemide 20 MG Tablet PO (04:10)
[2018-10-15] MEDS: Menthol/Lanolin/Calamine/Znox 113 GM Tube 1 APPLIC TOPICAL ×3 (04:10→21:46)
[2018-10-15] MEDS: guaiFENesin 1,200 MG Tablet 1200 MG PO ×2 (04:10→18:03)
[2018-10-15] MEDS: Nystatin Powder 15gm Bottle 1 APPLIC TOPICAL ×3 (04:12→21:47)
[2018-10-15 04:14] VITALS: BP 129/63; PULSE 56
[2018-10-15] MEDS: Metoprolol Tartrate 25 MG Tablet 12.5 MG PO ×2 (04:14→18:06)
[2018-10-15 06:30] VITALS: PULSE 85; RESP 16; O2SAT 97
[2018-10-15] MEDS: Ipratropium/Albuterol Sulfate 3 ML AMPUL.NEB INHALATION (06:30)
[2018-10-15] MEDS: predniSONE 10 MG Tablet PO (08:20)
--- NOTE | 2018-10-15 11:12 | NURSING ---
PT REFUSED AMELIE ACEVEDO. PT STATED ANY THING ON MY LEGS DRIVES ME CRAZY.
[2018-10-15 14:30] VITALS: PULSE 79; RESP 18; O2SAT 94
[2018-10-15 14:30] LABS: International Normalized Ratio 1.8; Prothrombin Time (Protime)PT. 20.8 SECONDS (11.7-14.9)
--- NOTE | 2018-10-15 14:59 | PCM.PN.RX ---
<BettinagermanKoif cutlerip D - Last Filed: 10/15/18 14:59> Progress Note - Pharmacy Subjective: TCU Admission Objective: Allergies metformin Adverse Reaction (Verified 10/06/18 07:13) Diarrhea Current Medications Generic Name Dose Route Start Last Admin Trade Name Freq PRN Reason Stop Dose Admin Acetaminophen 1,000 mg 10/12/18 15:56 10/13/18 21:18 Tylenol PO 1,000 mg Q8H PRN PRN Administration MILD PAIN (1-3/10) Albuterol Sulfate 2 puff 10/12/18 15:56 Ventolin Hfa (Sp) INHALATION Q6H PRN SOB &/OR WHEEZING Albuterol/Ipratropium 3 ml 10/12/18 20:00 10/15/18 13:10 Duoneb INHALATION Not Given Q6HWA.RT WENDY Bisacodyl 10 mg 10/12/18 16:49 Dulcolax PO DAILY PRN Constipation Calamine/Phenol 1 applic 10/13/18 06:00 10/15/18 12:48 Calmoseptine Ointment TOPICAL 1 applicatio TID [facility] Administration Protocol Emollient Ointment 1 applic 10/13/18 06:00 10/15/18 04:11 Eucerin Intensive Repair TOPICAL 1 applicatio BID@0600,2200 WENDY Administration Protocol Furosemide 20 mg 10/13/18 06:00 10/15/18 04:10 Lasix PO 20 mg DAILY WENDY Administration Guaifenesin 1,200 mg 10/12/18 18:00 10/15/18 04:10 Mucinex PO 10/19/18 18:01 1,200 mg BID WENDY Administration Metoprolol Tartrate 12.5 mg 10/12/18 18:00 10/15/18 04:14 Lopressor (Beta Libia) PO 12.5 mg BID WENDY Administration Nutritional Formula (Lactose Free) 120 ml 10/12/18 17:00 10/15/18 11:11 Ensure Enlive PO 120 ml 4X/DAY WENDY Administration Nystatin 1 applic 10/13/18 06:00 10/15/18 12:48 Mycostatin Powder TOPICAL 1 applicatio TID WENDY Administration Protocol Polyethylene Glycol 17 gm 10/13/18 06:00 10/15/18 04:10 Miralax PO Not Given DAILY WENDY Potassium Chloride 10 meq 10/12/18 18:00 10/15/18 04:10 K-Dur PO 10 meq BID WENDY Administration Prednisone 30 mg 10/13/18 08:00 10/15/18 08:20 PO 10/25/18 07:59 30 mg DAILY@0800 [facility] Administration Taper Senna/Docusate Sodium 1 tablet 10/12/18 18:00 10/15/18 04:12 Senokot-S, Annie-Colace PO Not Given BID [facility] Tuberculin PPD 5 tu 10/20/18 10:00 Tubersol, Aplisol, Ppd ID 10/20/18 10:01 X1 ONE Warfarin Sodium 7.5 mg 10/13/18 17:00 10/13/18 17:41 Coumadin (Pbkc) PO 7.5 mg WeSa@1700 [facility] Administration Warfarin Sodium 5 mg 10/12/18 17:00 10/14/18 17:25 Coumadin (Pbkc) PO 5 mg SuMoTuThFr@1700 [facility] Administration Problem List (Last Reviewed 04/02/18 @ 08:36 by Pankaj Zimmerman MD) Shortness of breath (Acute) Acute respiratory failure (Acute) Pulmonary embolism (Chronic) Vital Signs Temp Pulse Resp BP Pulse Ox 98.2 F 85 16 129/63 H 97 10/14/18 15:14 10/15/18 06:30 10/15/18 06:30 10/15/18 04:14 10/15/18 06:30 Oxygen Flow Rate (L/min) 5 Oxygen Delivery Method Nasal Cannula Weight: 77.1 kg Body Mass Index (BMI) 29.0 Sodium 144 mmol/L (136-145) 10/13/18 07:10 Potassium 5.1 mmol/L (3.5-5.1) 10/13/18 07:10 Chloride 100 mmol/L (98-107) 10/13/18 07:10 Carbon Dioxide 44.0 mmol/L (21.0-32.0) H 10/13/18 07:10 Anion Gap 0 (5-15) L 10/13/18 07:10 BUN 46 mg/dL (7-18) H 10/13/18 07:10 Creatinine 1.31 mg/dL (0.55-1.02) H 10/13/18 07:10 Est GFR (MDRD) Af Amer 51 mL/min (>60) L 10/13/18 07:10 Est GFR (MDRD) Non-Af 42 mL/min (>60) L 10/13/18 07:10 BUN/Creatinine Ratio 35.1 RATIO (10-20) H 10/13/18 07:10 Glucose 134 mg/dL (74-106) H 10/13/18 07:10 Assessment/Plan: 1) Pain APAP for mild pain. Continue to monitor prn medication use, daily pain scores. 2) COPD Duoneb aerosols, prn albuterol, guaifenesin, prednisone taper. Continue to monitor prn medication use, for shortness of breath. 3) AFib/Heart Failure Metoprolol, furosemide/KCL, warfarin for goal INR 2-3. Continue to monitor BP/HR, renal function, electrolytes, PT/INR, for bleeding/clot. Psychotropic Medications: None Unnecessary Medications: None Bowel Regimen: 4) Senna/s, PEG, prn bisacodyl. Continue to monitor prn medication use, for constipation/diarrhea. Date of Note:: 10/15/18 - Provider Comments Provider responsibility: Provider responsible to enter orders to implement recommendations <Armando Gracia Chi - Last Filed: 10/15/18 15:53> Progress Note - Pharmacy Subjective: [] Objective: Allergies metformin Adverse Reaction (Verified 10/06/18 07:13) Diarrhea Current Medications Generic Name Dose Route Start Last Admin Trade Name Freq PRN Reason Stop Dose Admin Acetaminophen 1,000 mg 10/12/18 15:56 10/13/18 21:18 Tylenol PO 1,000 mg Q8H PRN PRN Administration MILD PAIN (1-3/10) Albuterol Sulfate 2 puff 10/12/18 15:56 Ventolin Hfa (Sp) INHALATION Q6H PRN SOB &/OR WHEEZING Albuterol/Ipratropium 3 ml 10/12/18 20:00 10/15/18 13:10 Duoneb INHALATION Not Given Q6HWA.RT WENDY Bisacodyl 10 mg 10/12/18 16:49 Dulcolax PO DAILY PRN Constipation Calamine/Phenol 1 applic 10/13/18 06:00 10/15/18 12:48 Calmoseptine Ointment TOPICAL 1 applicatio TID WENDY Administration Protocol Cyanocobalamin 1,000 mcg 10/16/18 08:00 Vitamin B12 PO DAILY@0800 [facility] Emollient Ointment 1 applic 10/13/18 06:00 10/15/18 04:11 Eucerin Intensive Repair TOPICAL 1 applicatio BID@0600,2200 [facility] Administration Protocol Furosemide 20 mg 10/13/18 06:00 10/15/18 04:10 Lasix PO 20 mg DAILY WENDY Administration Guaifenesin 1,200 mg 10/12/18 18:00 10/15/18 04:10 Mucinex PO 10/19/18 18:01 1,200 mg BID [facility] Administration Metoprolol Tartrate 12.5 mg 10/12/18 18:00 10/15/18 04:14 Lopressor (Beta Libia) PO 12.5 mg BID [facility] Administration Nutritional Formula (Lactose Free) 120 ml 10/12/18 17:00 10/15/18 11:11 Ensure Enlive PO 120 ml 4X/DAY WENDY Administration Nystatin 1 applic 10/13/18 06:00 10/15/18 12:48 Mycostatin Powder TOPICAL 1 applicatio TID [facility] Administration Protocol Polyethylene Glycol 17 gm 10/13/18 06:00 10/15/18 04:10 Miralax PO Not Given DAILY [facility] Potassium Chloride 10 meq 10/12/18 18:00 10/15/18 04:10 K-Dur PO 10 meq BID [facility] Administration Prednisone 30 mg 10/13/18 08:00 10/15/18 08:20 PO 10/25/18 07:59 30 mg DAILY@0800 [facility] Administration Taper Senna/Docusate Sodium 1 tablet 10/12/18 18:00 10/15/18 04:12 Senokot-S, Annie-Colace PO Not Given BID [facility] Tuberculin PPD 5 tu 10/20/18 10:00 Tubersol, Aplisol, Ppd ID 10/20/18 10:01 X1 ONE Warfarin Sodium 7.5 mg 10/13/18 17:00 10/13/18 17:41 Coumadin (Pbkc) PO 7.5 mg WeSa@1700 [facility] Administration Warfarin Sodium 5 mg 10/12/18 17:00 10/14/18 17:25 Coumadin (Pbkc) PO 5 mg SuMoTuThFr@1700 [facility] Administration Problem List (Last Reviewed 04/02/18 @ 08:36 by Pankaj Zimmerman MD) Shortness of breath (Acute) Acute respiratory failure (Acute) Pulmonary embolism (Chronic) Vital Signs Temp Pulse Resp BP Pulse Ox 98.2 F 79 18 129/63 H 94 10/14/18 15:14 10/15/18 14:30 10/15/18 14:30 10/15/18 04:14 10/15/18 14:30 Oxygen Flow Rate (L/min) 6 Oxygen Delivery Method Nasal Cannula Weight: 77.1 kg Body Mass Index (BMI) 29.0 Sodium 144 mmol/L (136-145) 10/13/18 07:10 Potassium 5.1 mmol/L (3.5-5.1) 10/13/18 07:10 Chloride 100 mmol/L (98-107) 10/13/18 07:10 Carbon Dioxide 44.0 mmol/L (21.0-32.0) H 10/13/18 07:10 Anion Gap 0 (5-15) L 10/13/18 07:10 BUN 46 mg/dL (7-18) H 10/13/18 07:10 Creatinine 1.31 mg/dL (0.55-1.02) H 10/13/18 07:10 Est GFR (MDRD) Af Amer 51 mL/min (>60) L 10/13/18 07:10 Est GFR (MDRD) Non-Af 42 mL/min (>60) L 10/13/18 07:10 BUN/Creatinine Ratio 35.1 RATIO (10-20) H 10/13/18 07:10 Glucose 134 mg/dL (74-106) H 10/13/18 07:10 Assessment/Plan: Psychotropic Medications: Unnecessary Medications: Bowel Regimen: - Provider Comments Provider responsibility: Provider responsible to enter orders to implement recommendations Provider Comments to Recommendations by Pharmacy: Agree
--- NOTE | 2018-10-15 15:03 | PHA.CONS_ITS ---
<BettinagermanKofi cutlerip D - Last Filed: 10/15/18 14:59> Progress Note - Pharmacy Subjective: TCU Admission Objective: Allergies metformin Adverse Reaction (Verified 10/06/18 07:13) Diarrhea Current Medications Generic Name Dose Route Start Last Admin Trade Name Freq PRN Reason Stop Dose Admin Acetaminophen 1,000 mg 10/12/18 15:56 10/13/18 21:18 Tylenol PO 1,000 mg Q8H PRN PRN Administration MILD PAIN (1-3/10) Albuterol Sulfate 2 puff 10/12/18 15:56 Ventolin Hfa (Sp) INHALATION Q6H PRN SOB &/OR WHEEZING Albuterol/Ipratropium 3 ml 10/12/18 20:00 10/15/18 13:10 Duoneb INHALATION Not Given Q6HWA.RT WENDY Bisacodyl 10 mg 10/12/18 16:49 Dulcolax PO DAILY PRN Constipation Calamine/Phenol 1 applic 10/13/18 06:00 10/15/18 12:48 Calmoseptine Ointment TOPICAL 1 applicatio TID [facility] Administration Protocol Emollient Ointment 1 applic 10/13/18 06:00 10/15/18 04:11 Eucerin Intensive Repair TOPICAL 1 applicatio BID@0600,2200 WENDY Administration Protocol Furosemide 20 mg 10/13/18 06:00 10/15/18 04:10 Lasix PO 20 mg DAILY WENDY Administration Guaifenesin 1,200 mg 10/12/18 18:00 10/15/18 04:10 Mucinex PO 10/19/18 18:01 1,200 mg BID WENDY Administration Metoprolol Tartrate 12.5 mg 10/12/18 18:00 10/15/18 04:14 Lopressor (Beta Libia) PO 12.5 mg BID WENDY Administration Nutritional Formula (Lactose Free) 120 ml 10/12/18 17:00 10/15/18 11:11 Ensure Enlive PO 120 ml 4X/DAY WENDY Administration Nystatin 1 applic 10/13/18 06:00 10/15/18 12:48 Mycostatin Powder TOPICAL 1 applicatio TID WENDY Administration Protocol Polyethylene Glycol 17 gm 10/13/18 06:00 10/15/18 04:10 Miralax PO Not Given DAILY WENDY Potassium Chloride 10 meq 10/12/18 18:00 10/15/18 04:10 K-Dur PO 10 meq BID WENDY Administration Prednisone 30 mg 10/13/18 08:00 10/15/18 08:20 PO 10/25/18 07:59 30 mg DAILY@0800 [facility] Administration Taper Senna/Docusate Sodium 1 tablet 10/12/18 18:00 10/15/18 04:12 Senokot-S, Annie-Colace PO Not Given BID [facility] Tuberculin PPD 5 tu 10/20/18 10:00 Tubersol, Aplisol, Ppd ID 10/20/18 10:01 X1 ONE Warfarin Sodium 7.5 mg 10/13/18 17:00 10/13/18 17:41 Coumadin (Pbkc) PO 7.5 mg WeSa@1700 [facility] Administration Warfarin Sodium 5 mg 10/12/18 17:00 10/14/18 17:25 Coumadin (Pbkc) PO 5 mg SuMoTuThFr@1700 [facility] Administration Problem List (Last Reviewed 04/02/18 @ 08:36 by Pankaj Zimmerman MD) Shortness of breath (Acute) Acute respiratory failure (Acute) Pulmonary embolism (Chronic) Vital Signs Temp Pulse Resp BP Pulse Ox 98.2 F 85 16 129/63 H 97 10/14/18 15:14 10/15/18 06:30 10/15/18 06:30 10/15/18 04:14 10/15/18 06:30 Oxygen Flow Rate (L/min) 5 Oxygen Delivery Method Nasal Cannula Weight: 77.1 kg Body Mass Index (BMI) 29.0 Sodium 144 mmol/L (136-145) 10/13/18 07:10 Potassium 5.1 mmol/L (3.5-5.1) 10/13/18 07:10 Chloride 100 mmol/L (98-107) 10/13/18 07:10 Carbon Dioxide 44.0 mmol/L (21.0-32.0) H 10/13/18 07:10 Anion Gap 0 (5-15) L 10/13/18 07:10 BUN 46 mg/dL (7-18) H 10/13/18 07:10 Creatinine 1.31 mg/dL (0.55-1.02) H 10/13/18 07:10 Est GFR (MDRD) Af Amer 51 mL/min (>60) L 10/13/18 07:10 Est GFR (MDRD) Non-Af 42 mL/min (>60) L 10/13/18 07:10 BUN/Creatinine Ratio 35.1 RATIO (10-20) H 10/13/18 07:10 Glucose 134 mg/dL (74-106) H 10/13/18 07:10 Assessment/Plan: 1) Pain APAP for mild pain. Continue to monitor prn medication use, daily pain scores. 2) COPD Duoneb aerosols, prn albuterol, guaifenesin, prednisone taper. Continue to monitor prn medication use, for shortness of breath. 3) AFib/Heart Failure Metoprolol, furosemide/KCL, warfarin for goal INR 2-3. Continue to monitor BP/HR, renal function, electrolytes, PT/INR, for bleeding/clot. Psychotropic Medications: None Unnecessary Medications: None Bowel Regimen: 4) Senna/s, PEG, prn bisacodyl. Continue to monitor prn medication use, for constipation/diarrhea. Date of Note:: 10/15/18 - Provider Comments Provider responsibility: Provider responsible to enter orders to implement recommendations <Armando Gracia Chi - Last Filed: 10/15/18 15:53> Progress Note - Pharmacy Subjective: [] Objective: Allergies metformin Adverse Reaction (Verified 10/06/18 07:13) Diarrhea Current Medications Generic Name Dose Route Start Last Admin Trade Name Freq PRN Reason Stop Dose Admin Acetaminophen 1,000 mg 10/12/18 15:56 10/13/18 21:18 Tylenol PO 1,000 mg Q8H PRN PRN Administration MILD PAIN (1-3/10) Albuterol Sulfate 2 puff 10/12/18 15:56 Ventolin Hfa (Sp) INHALATION Q6H PRN SOB &/OR WHEEZING Albuterol/Ipratropium 3 ml 10/12/18 20:00 10/15/18 13:10 Duoneb INHALATION Not Given Q6HWA.RT WENDY Bisacodyl 10 mg 10/12/18 16:49 Dulcolax PO DAILY PRN Constipation Calamine/Phenol 1 applic 10/13/18 06:00 10/15/18 12:48 Calmoseptine Ointment TOPICAL 1 applicatio TID WENDY Administration Protocol Cyanocobalamin 1,000 mcg 10/16/18 08:00 Vitamin B12 PO DAILY@0800 [facility] Emollient Ointment 1 applic 10/13/18 06:00 10/15/18 04:11 Eucerin Intensive Repair TOPICAL 1 applicatio BID@0600,2200 [facility] Administration Protocol Furosemide 20 mg 10/13/18 06:00 10/15/18 04:10 Lasix PO 20 mg DAILY WENDY Administration Guaifenesin 1,200 mg 10/12/18 18:00 10/15/18 04:10 Mucinex PO 10/19/18 18:01 1,200 mg BID [facility] Administration Metoprolol Tartrate 12.5 mg 10/12/18 18:00 10/15/18 04:14 Lopressor (Beta Libia) PO 12.5 mg BID [facility] Administration Nutritional Formula (Lactose Free) 120 ml 10/12/18 17:00 10/15/18 11:11 Ensure Enlive PO 120 ml 4X/DAY WENDY Administration Nystatin 1 applic 10/13/18 06:00 10/15/18 12:48 Mycostatin Powder TOPICAL 1 applicatio TID [facility] Administration Protocol Polyethylene Glycol 17 gm 10/13/18 06:00 10/15/18 04:10 Miralax PO Not Given DAILY [facility] Potassium Chloride 10 meq 10/12/18 18:00 10/15/18 04:10 K-Dur PO 10 meq BID [facility] Administration Prednisone 30 mg 10/13/18 08:00 10/15/18 08:20 PO 10/25/18 07:59 30 mg DAILY@0800 [facility] Administration Taper Senna/Docusate Sodium 1 tablet 10/12/18 18:00 10/15/18 04:12 Senokot-S, Annie-Colace PO Not Given BID [facility] Tuberculin PPD 5 tu 10/20/18 10:00 Tubersol, Aplisol, Ppd ID 10/20/18 10:01 X1 ONE Warfarin Sodium 7.5 mg 10/13/18 17:00 10/13/18 17:41 Coumadin (Pbkc) PO 7.5 mg WeSa@1700 [facility] Administration Warfarin Sodium 5 mg 10/12/18 17:00 10/14/18 17:25 Coumadin (Pbkc) PO 5 mg SuMoTuThFr@1700 [facility] Administration Problem List (Last Reviewed 04/02/18 @ 08:36 by Pankaj Zimmerman MD) Shortness of breath (Acute) Acute respiratory failure (Acute) Pulmonary embolism (Chronic) Vital Signs Temp Pulse Resp BP Pulse Ox 98.2 F 79 18 129/63 H 94 10/14/18 15:14 10/15/18 14:30 10/15/18 14:30 10/15/18 04:14 10/15/18 14:30 Oxygen Flow Rate (L/min) 6 Oxygen Delivery Method Nasal Cannula Weight: 77.1 kg Body Mass Index (BMI) 29.0 Sodium 144 mmol/L (136-145) 10/13/18 07:10 Potassium 5.1 mmol/L (3.5-5.1) 10/13/18 07:10 Chloride 100 mmol/L (98-107) 10/13/18 07:10 Carbon Dioxide 44.0 mmol/L (21.0-32.0) H 10/13/18 07:10 Anion Gap 0 (5-15) L 10/13/18 07:10 BUN 46 mg/dL (7-18) H 10/13/18 07:10 Creatinine 1.31 mg/dL (0.55-1.02) H 10/13/18 07:10 Est GFR (MDRD) Af Amer 51 mL/min (>60) L 10/13/18 07:10 Est GFR (MDRD) Non-Af 42 mL/min (>60) L 10/13/18 07:10 BUN/Creatinine Ratio 35.1 RATIO (10-20) H 10/13/18 07:10 Glucose 134 mg/dL (74-106) H 10/13/18 07:10 Assessment/Plan: Psychotropic Medications: Unnecessary Medications: Bowel Regimen: - Provider Comments Provider responsibility: Provider responsible to enter orders to implement recommendations Provider Comments to Recommendations by Pharmacy: Agree
--- NOTE | 2018-10-15 15:06 | NURSING ---
Addendum entered by Holden Galvez 10/15/18 15:20: WRONG PT. Original Note: URINE IN PATEL BAG LOOKS LIKE BRISCOE GARY AID. RIGHT HEEL RED. FLOATED. REPORTED TO HODAN MORALEZ
[2018-10-15 15:58] VITALS: BP 161/53; PULSE 61; RESP 22; TEMP 37.1; O2SAT 90
[2018-10-15] MEDS: Senna/Docusate Sodium 1 Tablet PO (18:03)
[2018-10-15 18:06] VITALS: PULSE 61
[2018-10-15] MEDS: Acetaminophen 500 MG Tablet 1000 MG PO (21:42)
[2018-10-16 05:15] VITALS: BP 143/66; PULSE 60
[2018-10-16] MEDS: Furosemide 20 MG Tablet PO (05:15)
[2018-10-16] MEDS: Metoprolol Tartrate 25 MG Tablet 12.5 MG PO ×2 (05:15→17:14)
[2018-10-16] MEDS: Senna/Docusate Sodium 1 Tablet PO ×2 (05:15→17:12)
[2018-10-16] MEDS: guaiFENesin 1,200 MG Tablet 1200 MG PO ×2 (05:16→17:14)
[2018-10-16] MEDS: Menthol/Lanolin/Calamine/Znox 113 GM Tube 1 APPLIC TOPICAL ×3 (05:17→20:47)
[2018-10-16] MEDS: Nystatin Powder 15gm Bottle 1 APPLIC TOPICAL ×3 (05:17→20:48)
[2018-10-16 07:04] VITALS: PULSE 52; RESP 18; O2SAT 98
[2018-10-16] MEDS: Ipratropium/Albuterol Sulfate 3 ML AMPUL.NEB INHALATION ×2 (07:04→17:55)
[2018-10-16] MEDS: Cyanocobalamin 500 MCG Tablet 1000 MCG PO (08:14)
[2018-10-16] MEDS: predniSONE 10 MG Tablet PO (08:14)
[2018-10-16 16:00] VITALS: BP 120/71; PULSE 102; RESP 20; TEMP 36.8; O2SAT 95
[2018-10-16 17:14] VITALS: BP 120/71; PULSE 102
[2018-10-16 17:56] VITALS: PULSE 111; RESP 24
[2018-10-16 20:30] VITALS: PULSE 90; RESP 20; O2SAT 95
[2018-10-17 05:26] VITALS: BP 149/67; PULSE 60
[2018-10-17] MEDS: Furosemide 20 MG Tablet PO (05:26)
[2018-10-17] MEDS: guaiFENesin 1,200 MG Tablet 1200 MG PO ×2 (05:26→17:13)
[2018-10-17] MEDS: Metoprolol Tartrate 25 MG Tablet 12.5 MG PO ×2 (05:26→17:12)
[2018-10-17] MEDS: Senna/Docusate Sodium 1 Tablet PO (05:26)
[2018-10-17] MEDS: Menthol/Lanolin/Calamine/Znox 113 GM Tube 1 APPLIC TOPICAL ×3 (05:33→21:33)
[2018-10-17] MEDS: Nystatin Powder 15gm Bottle 1 APPLIC TOPICAL ×3 (05:33→21:33)
[2018-10-17 06:40] VITALS: PULSE 108; RESP 20; O2SAT 98
[2018-10-17] MEDS: Ipratropium/Albuterol Sulfate 3 ML AMPUL.NEB INHALATION ×2 (06:40→19:35)
[2018-10-17] MEDS: predniSONE 10 MG Tablet PO (08:21)
[2018-10-17] MEDS: Cyanocobalamin 500 MCG Tablet 1000 MCG PO (08:21)
[2018-10-17 16:00] VITALS: BP 157/91; PULSE 125; RESP 24; TEMP 36.8; O2SAT 92
[2018-10-17 17:12] VITALS: BP 157/91; PULSE 125
--- NOTE | 2018-10-17 18:28 | NURSING ---
Patient's HR elevated and irregular BP 159/91. updated, new order to metoprolol to 25mg BID.
[2018-10-17 19:35] VITALS: PULSE 98; RESP 18; O2SAT 98
[2018-10-17 20:30] VITALS: PULSE 90; RESP 20; O2SAT 96
[2018-10-18] VITALS (7 sets, daily range): BP systolic 101–144; BP diastolic 65–72; PULSE 66–95; RESP 16–18; TEMP 36.6; O2SAT 92–97
[2018-10-18] MEDS: Acetaminophen 500 MG Tablet 1000 MG PO (00:33)
[2018-10-18] MEDS: guaiFENesin 1,200 MG Tablet 1200 MG PO ×2 (05:08→17:19)
[2018-10-18] MEDS: Senna/Docusate Sodium 1 Tablet PO (05:08)
[2018-10-18] MEDS: Furosemide 20 MG Tablet PO (05:09)
[2018-10-18] MEDS: Metoprolol Tartrate 25 MG Tablet PO ×2 (05:09→17:20)
[2018-10-18] MEDS: Nystatin Powder 15gm Bottle 1 APPLIC TOPICAL ×3 (05:11→21:30)
[2018-10-18] MEDS: Menthol/Lanolin/Calamine/Znox 113 GM Tube 1 APPLIC TOPICAL ×3 (05:11→21:31)
[2018-10-18 06:34] LABS: International Normalized Ratio 1.2; Prothrombin Time (Protime)PT. 14.6 SECONDS (11.7-14.9)
[2018-10-18] MEDS: Ipratropium/Albuterol Sulfate 3 ML AMPUL.NEB INHALATION ×3 (07:07→19:45)
[2018-10-18] MEDS: predniSONE 10 MG Tablet PO (09:03)
[2018-10-18] MEDS: Cyanocobalamin 500 MCG Tablet 1000 MCG PO (09:03)
--- NOTE | 2018-10-18 13:37 | MDS.RN ---
Pain interview for qing 10/19/18 completed.
--- NOTE | 2018-10-18 15:47 | NURSING ---
PT COMPLAINING OF HEART BURN. REPORTED TO HODAN ROSA
--- NOTE | 2018-10-18 18:15 | NURSING ---
PT COMPLAINED OF TIGHTNESS TO CHEST. VITALS DONE,REPORTED TO HODAN ROSA
--- NOTE | 2018-10-18 18:25 | NURSING ---
new order for mylanta obtained and administered. effective relief of previously reported heartburn and subsequent sternal tightness. will monitor
[2018-10-18] MEDS: Mag Hydrox/Al Hydrox/Simeth 30 ML UDC 15 ML PO (18:55)
[2018-10-19] VITALS (9 sets, daily range): BP systolic 125–141; BP diastolic 76–86; PULSE 61–129; RESP 16–28; TEMP 36.1; O2SAT 94–98
[2018-10-19] MEDS: Menthol/Lanolin/Calamine/Znox 113 GM Tube 1 APPLIC TOPICAL ×3 (04:41→21:02)
[2018-10-19] MEDS: Nystatin Powder 15gm Bottle 1 APPLIC TOPICAL ×3 (04:42→21:02)
[2018-10-19] MEDS: Furosemide 20 MG Tablet PO (04:47)
[2018-10-19] MEDS: guaiFENesin 1,200 MG Tablet 1200 MG PO ×2 (04:47→17:39)
[2018-10-19] MEDS: Acetaminophen 500 MG Tablet 1000 MG PO (04:48)
[2018-10-19] MEDS: Senna/Docusate Sodium 1 Tablet PO ×2 (04:48→17:39)
[2018-10-19] MEDS: Ipratropium/Albuterol Sulfate 3 ML AMPUL.NEB INHALATION ×3 (06:47→18:29)
[2018-10-19] MEDS: Cyanocobalamin 500 MCG Tablet 1000 MCG PO (09:20)
[2018-10-19] MEDS: predniSONE 10 MG Tablet PO (09:20)
--- NOTE | 2018-10-19 10:29 | CASEMGMT ---
Social Work Plan of care meeting held today with pt and daughter present. Pt is receiving PT/OT and progressing. No d/c date set at this time. Pt and dgt notified that insurance update is due today and that continued stay is not gaurenteed. Pt lives alone and dgt is supportive but unable to provide 24 hour care. Pt is hopeful to return home at d/c. Will continue with treatment plan at this time CORNELIA Palencia
--- NOTE | 2018-10-19 12:03 | CASEMGMT ---
Insurance: Clinical update faxed. will await continued stay determination. Auth# [id number] CORNELIA Palencia
--- NOTE | 2018-10-19 12:05 | CASEMGMT ---
Social Work SW met with pt and dgt in pt room and reviewed living will information. Pt choosing to complete living will at this time. Original given to pt and copy placed in chart. CORNELIA Palencia
--- NOTE | 2018-10-19 17:13 | CASEMGMT ---
Social Work: Brief interview for mental status (BIMS) and PHQ-9 assessment completed this day. USMAN Eng
[2018-10-19] MEDS: Metoprolol Tartrate 25 MG Tablet PO ×2 (17:40→23:10)
--- NOTE | 2018-10-19 22:04 | NURSING ---
Dr. Gracia updated on HR running between 100-120's. X1 Lopressor 25mg now.
[2018-10-20] VITALS (7 sets, daily range): BP systolic 126–130; BP diastolic 69–87; PULSE 60–110; RESP 18–30; TEMP 36.3; O2SAT 92–96
[2018-10-20] MEDS: Senna/Docusate Sodium 1 Tablet PO ×2 (05:08→18:22)
[2018-10-20] MEDS: Furosemide 20 MG Tablet PO (05:08)
[2018-10-20] MEDS: Menthol/Lanolin/Calamine/Znox 113 GM Tube 1 APPLIC TOPICAL ×3 (05:08→20:09)
[2018-10-20] MEDS: Metoprolol Tartrate 25 MG Tablet PO ×2 (05:10→18:22)
[2018-10-20] MEDS: Nystatin Powder 15gm Bottle 1 APPLIC TOPICAL ×3 (05:10→20:10)
[2018-10-20 06:49] LABS: Absolute Lymphocyte Count 1.73 X10^3/ul (0.83-4.51); Absolute Neutrophil Count 10.8 X10^3/uL (2.0-7.7); Basophil# 0.01 X10^3/uL; Basophil% 0.1 % (0-1); Eosinophil# 0.12 X10^3/uL; Eosinophils% 0.9 % (0-5); Hematocrit 40.6 % (37-47); Hemoglobin 10.9 g/dl (12.0-15.0); Lymphocyte # 1.73 X10^3/ul (4.0); Lymphocyte % 12.5 % (19-41); Mean Corp Hgb Conc 26.8 g/gl (32-36); Mean Corpuscular Hgb 27.9 pg (27.0-32.0); Mean Corpuscular Volume 104.1 fL (81-99); Mean Platelet Vol. 10.9 fl (6.2-12.0); Monocyte# 1.01 X10^3/uL; Monocyte% 7.3 % (0-10); Neutrophil # 10.81 X10^3/uL (2.7-7.7); Neutrophil % 78.3 % (47-70); Platelet Count 173 K/mm3 (150-450); RBC Distribution Width CV 14.2 % (11.6-14.6); RBC Distribution Width SD 53.4 fl (35.1-43.9); White Blood Count 13.8 K/mm3 (4.4-11.0)
[2018-10-20 06:52] LABS: POSITIVE COUNT NO; POSITIVE DIFFERENTIAL NO; POSITIVE MORPHOLOGY NO
[2018-10-20 07:07] LABS: Anion Gap -1 (5-15); BUN 40 mg/dL (7-18); BUN/Creat Ratio 39.6 RATIO (10-20); Calcium,Total 9.4 mg/dL (8.5-10.1); Chloride 100 mmol/L (98-107); Creatinine, Serum 1.01 mg/dL (0.55-1.02); EST Glomerular Filtration Rate 57 mL/min (>60); Est Glom Filt Rate - Afr Amer 69 mL/min (>60); Estimated Creatinine Clearance 41.56 ml/min; Glucose 137 mg/dL (74-106); Potassium 5.3 mmol/L (3.5-5.1); Sodium Level 144 mmol/L (136-145)
[2018-10-20] MEDS: Ipratropium/Albuterol Sulfate 3 ML AMPUL.NEB INHALATION ×2 (07:55→18:42)
[2018-10-20] MEDS: predniSONE 10 MG Tablet PO (09:33)
[2018-10-20] MEDS: Cyanocobalamin 500 MCG Tablet 1000 MCG PO (09:34)
[2018-10-20] MEDS: Tuberculin,Purif.prot.deriv. 50 TU/ML Vial 5 ML ID (18:21)
[2018-10-21] VITALS (8 sets, daily range): BP systolic 137–140; BP diastolic 67–95; PULSE 49–113; RESP 16–26; TEMP 36.7; O2SAT 92–98
[2018-10-21] MEDS: Ipratropium/Albuterol Sulfate 3 ML AMPUL.NEB INHALATION ×4 (00:40→19:41)
[2018-10-21] MEDS: Furosemide 20 MG Tablet PO (05:36)
[2018-10-21] MEDS: Senna/Docusate Sodium 1 Tablet PO ×2 (05:36→18:00)
[2018-10-21] MEDS: Metoprolol Tartrate 25 MG Tablet PO ×2 (05:36→17:59)
[2018-10-21] MEDS: Menthol/Lanolin/Calamine/Znox 113 GM Tube 1 APPLIC TOPICAL ×3 (05:38→15:43)
[2018-10-21] MEDS: Nystatin Powder 15gm Bottle 1 APPLIC TOPICAL ×3 (05:39→19:28)
[2018-10-21] MEDS: predniSONE 10 MG Tablet PO (07:54)
[2018-10-21] MEDS: Cyanocobalamin 500 MCG Tablet 1000 MCG PO (07:55)
[2018-10-22] VITALS (7 sets, daily range): BP systolic 130–163; BP diastolic 78–91; PULSE 48–102; RESP 18–22; TEMP 36.1; O2SAT 92–97
[2018-10-22] MEDS: Furosemide 20 MG Tablet PO (05:22)
[2018-10-22] MEDS: Senna/Docusate Sodium 1 Tablet PO ×2 (05:22→17:16)
[2018-10-22] MEDS: Menthol/Lanolin/Calamine/Znox 113 GM Tube 1 APPLIC TOPICAL ×3 (05:22→20:29)
[2018-10-22] MEDS: Nystatin Powder 15gm Bottle 1 APPLIC TOPICAL ×3 (05:22→20:29)
[2018-10-22] MEDS: Metoprolol Tartrate 25 MG Tablet PO ×2 (05:23→17:17)
[2018-10-22 05:59] LABS: Prothrombin Time (Protime)PT. 22.9 SECONDS (11.7-14.9)
[2018-10-22 06:11] LABS: Anion Gap 1 (5-15); BUN 41 mg/dL (7-18); BUN/Creat Ratio 41.6 RATIO (10-20); Calcium,Total 9.2 mg/dL (8.5-10.1); Chloride 98 mmol/L (98-107); Creatinine, Serum 0.99 mg/dL (0.55-1.02); EST Glomerular Filtration Rate 58 mL/min (>60); Est Glom Filt Rate - Afr Amer 71 mL/min (>60); Glucose 110 mg/dL (74-106); Potassium 4.8 mmol/L (3.5-5.1); Sodium Level 144 mmol/L (136-145)
[2018-10-22] MEDS: Ipratropium/Albuterol Sulfate 3 ML AMPUL.NEB INHALATION ×3 (06:55→19:00)
[2018-10-22] MEDS: predniSONE 10 MG Tablet PO (09:15)
[2018-10-22] MEDS: Cyanocobalamin 500 MCG Tablet 1000 MCG PO (09:15)
--- NOTE | 2018-10-22 09:19 | NURSING ---
Addendum entered by Pinky Mao 10/22/18 14:02: Dr. Sanders updated, new order to increase albuterol inhaler to [id number] PRN. Original Note: Addendum entered by Pinky Mao 10/22/18 10:14: Patient up with therapy, respirations even and unlabored, states I feel so much better. oxygen level 93% on 6L. Will continue to monitor. Original Note: Patient reports SOB, upon assessment using accessory muscles to breath, but does not appear distressed. Pulled up in bed and HOB elevated, PO2 87% on 5L, increased to 6L per order, oxygen increased to 92%. Patient reports improved respiratory effort, dyspnea improved. Maintained oxygen between 91-93% on 6LPM. Will continue to monitor.
--- NOTE | 2018-10-22 16:00 | CASEMGMT ---
Insurance Continued stay denied with LCD 10/24/18 and d/c 10/25/18. [employer] faxed. Family appealing. Appeal info faxed to [place]. Auth # [id number] CORNELIA Palencia
--- NOTE | 2018-10-22 16:02 | CASEMGMT ---
Social Work Pt dgt informed SW earlier today that pt is expressing interest in assisted living upon d/c. SW provided information on AL including costs. Dgt stating pt does not have financial means for AL or ECF. Medicaid application given to pt dgt. SW explained Assisted Living Medicaid Waiver Program and that this is a process to complete. ECF placement can take place if pt applies for Medicaid and a facility accepts Medicaid pending. At this time pt is denied continued stay by insurance. SW met with pt in room and explained. Pt stating if she cannot go to assisted living on 10/25 at discharge she would prefer to return home where she lives alone. SW did discuss with pt Passport program and applying for this. With pt permission phone call placed to pt dgt and explained pt wishes and Passport program and AL waiver program. Dgt will speak with pt and make final d/c plan. SW will continue to follow for d/c planning and support. CORNELIA Palencia
[2018-10-22] MEDS: Acetaminophen 500 MG Tablet 1000 MG PO (20:28)
[2018-10-23] MEDS: Polyethylene Glycol 3350 17 GM PACKET PO (05:21)
[2018-10-23] MEDS: Furosemide 20 MG Tablet PO (05:21)
[2018-10-23 05:22] VITALS: BP 135/74; PULSE 70
[2018-10-23] MEDS: Metoprolol Tartrate 25 MG Tablet PO ×2 (05:22→17:08)
[2018-10-23] MEDS: Senna/Docusate Sodium 1 Tablet PO ×2 (05:22→17:08)
[2018-10-23] MEDS: Menthol/Lanolin/Calamine/Znox 113 GM Tube 1 APPLIC TOPICAL ×3 (05:25→19:45)
[2018-10-23] MEDS: Nystatin Powder 15gm Bottle 1 APPLIC TOPICAL ×3 (05:25→19:45)
[2018-10-23 07:12] VITALS: PULSE 50; RESP 20; O2SAT 91
[2018-10-23] MEDS: Ipratropium/Albuterol Sulfate 3 ML AMPUL.NEB INHALATION ×2 (07:12→12:45)
[2018-10-23] MEDS: Cyanocobalamin 500 MCG Tablet 1000 MCG PO (08:24)
[2018-10-23] MEDS: predniSONE 10 MG Tablet PO (08:25)
[2018-10-23 12:45] VITALS: PULSE 61; RESP 20; O2SAT 93
--- NOTE | 2018-10-23 14:33 | CASEMGMT ---
Social Work SW met with pt in room and discussed discharge plan. Pt stating if she does not win appeal, she plans to discharge home alone. SW inquired about home health and pt is agreeable and would like to use [facility] for PT/OT/SN. 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 SW inquired about MOW and pt refused. SW explained Passport program and SW offered to make referral so pt can meet with them to see if she qualifies for services. Pt denied this. Pt does have home o2 through [facility]. Referral made to [facility] and they are able to accept pt for PT/OT/SN. SW will continue to follow for d/c palnning. Plan: Home alone, [facility] PT/OT/SN. CORNELIA Palencia
[2018-10-23 15:48] VITALS: BP 118/55; PULSE 59; RESP 20; TEMP 36.6; O2SAT 92
[2018-10-23 17:08] VITALS: BP 118/55; PULSE 59
[2018-10-23 20:13] VITALS: PULSE 53; O2SAT 98
[2018-10-24] VITALS (14 sets, daily range): BP systolic 108–141; BP diastolic 62–92; PULSE 47–151; RESP 18–30; TEMP 36.4–36.7; O2SAT 86–98
[2018-10-24] MEDS: Menthol/Lanolin/Calamine/Znox 113 GM Tube 1 APPLIC TOPICAL ×3 (05:28→20:36)
[2018-10-24] MEDS: Furosemide 20 MG Tablet PO (05:28)
[2018-10-24] MEDS: Polyethylene Glycol 3350 17 GM PACKET PO (05:28)
[2018-10-24] MEDS: Nystatin Powder 15gm Bottle 1 APPLIC TOPICAL ×3 (05:28→20:37)
[2018-10-24] MEDS: Metoprolol Tartrate 25 MG Tablet PO ×2 (05:33→17:08)
[2018-10-24] MEDS: Ipratropium/Albuterol Sulfate 3 ML AMPUL.NEB INHALATION ×4 (06:37→20:00)
[2018-10-24] MEDS: predniSONE 10 MG Tablet PO (08:33)
[2018-10-24] MEDS: Cyanocobalamin 500 MCG Tablet 1000 MCG PO (08:33)
--- NOTE | 2018-10-24 09:53 | MDS.RN ---
Information for the mds was obtained from review of the clinical record, interview of resident, staff, and direct observation of resident's care.
--- NOTE | 2018-10-24 10:06 | NURSING ---
THIS NURSE CALLED TO PT ROOM. PER THERAPY PT FEELING SOB AND OXYGEN WAS 78% ON 6L. VITALS DONE,O2 TURNED UP TO 7L.PRN VENTOLIN GIVEN. OXYGEN WENT UP TO 86%. LUNGS FRONT DIMINISHED, POST UPPER DIMINISHED LOWER POST FINE CRACKLES. REPORTED TO HODAN MORALEZ .RESPIRATORY TO ROOM,TURNED O2 UP TO 9L. OXYGEN NOW 94%. WILL CONTINUE TO MONITOR.
--- NOTE | 2018-10-24 10:07 | NURSING ---
Dr Tommy felderied of pt sat 70's on home 6l oxygne, resp notified, upped pt to 9 liters, sat 90-92%. pt using accessory muscles to breath. New order to increase duonebs, increase prednisone and get chest xray.
--- NOTE | 2018-10-24 10:25 | RAD_ITS ---
STUDY: X-RAY CHEST REASON FOR EXAM: Female, 73 years old. Shortness of breath. TECHNIQUE: AP and lateral views of the chest. COMPARISON: Comparison is made with prior study dated October 07, 2018. FINDINGS: Hyperinflation. Mild degree of increased markings at the lung bases just above scarring. Blunting of both costophrenic angles posteriorly. Normal size heart. Normal mediastinum and jeffrey. Normal visualized pulmonary arteries. There is atherosclerotic calcification of the aortic arch with tortuosity. There are diffuse degenerative changes of the visualized thoracic spine. Normal visualized ribs, clavicles, and shoulders. There is no demonstrated abnormality of the visualized soft tissue structures of the upper abdomen. RAD/Chest PA and Lateral IMPRESSION: Hyperinflation. Mild degree of bibasilar scarring. Electronically Signed: Krishna Grant, at 10:49 EDT , Service support ,
[2018-10-24] MEDS: predniSONE 20 MG Tablet 50 MG PO (10:54)
--- NOTE | 2018-10-24 15:05 | CASEMGMT ---
Social Work SW entered pt room to confirm d/c plan as pt has lost appeal. Pt daughter present in pt room. Pt and dgt informing SW that pt has changed her mind and does not want to return home alone but wants to go to a fpc at discharge tomorrow. Pt dgt submitted Medicaid application today and has pending number [id number]. [address], second [facility], third [facility]. Phone call to [facility] and they do not accept pending Medicaid. Call to [facility] and they do have a bed available and accept pending Medicaid. Referral faxed to [facility]. Will await determination. CORNELIA Palencia
--- NOTE | 2018-10-24 19:34 | PCM.TXEXTCAR ---
- Diet 10/12/18 15:53 Diet: Regular Diet - Routine Orders/Code Status O2 Liters per Minute: 6L/min O2 Frequency: Continuous Keep PO Greater than or Equal to (%): 92 Code Status: Full Code - Therapies Weight Bearing: Full weight bearing Physical Therapy: Eval and Treat Occupational Therapy: Eval and Treat - Allergies/Procedures Done in Hospital Allergies/Adverse Reactions: Allergies metformin Adverse Reaction (Verified 10/06/18 07:13) Diarrhea - Type of Care/Length of Stay Estimated LOS: More Than 30 Days Type of Care Needed: Skilled Rehab Potential: Fair Prognosis: Fair - Additional Orders/Day of Discharge Day of Discharge: 10/25/18 - Follow Up Care Primary Care Physician: Lisa Clancy MD [Primary Care Provider] -
--- NOTE | 2018-10-24 19:58 | PCM.DC ---
- Discharge Diagnoses Current Active Problems: Current Active and Chronic Problems (Last Reviewed 04/02/18 @ 08:36 by Pankaj Zimmerman MD) Shortness of breath (Acute) Acute respiratory failure (Acute) Pulmonary embolism (Chronic) Reason(s) for Visit for Discharge Instructions: severe COPD, debility, weakness and functional decline You will use the following diet at home:: No restrictions, Regular Your food should be the consistency of: Regular Your liquids should be the consistency of: Regular/Thin Discharge Activity: Return to Normal Activity, No Restrictions May resume sexual activity in: No Restrictions Weight Bearing Status: Full weight bearing Pending Tests on Discharge: CMP in 1 week Allergies/Adverse Reactions: Allergies metformin Adverse Reaction (Verified 10/06/18 07:13) Diarrhea Medications to take at Discharge Acetaminophen [Tylenol] 1,000 mg PO Q8H PRN PRN tablet 01/03/17 Ensure Enlive 120 ml PO 4X/DAY 10/12/18 Albuterol Aerosols [Ventolin Aerosols] 2.5 mg INHALATION Q6HWA.RT 30 Days vial.neb. 10/24/18 Albuterol Sulfate [Ventolin Hfa] 2 puff INHALATION Q6H PRN PRN #18 g 10/24/18 Cyanocobalamin [Vitamin B12] 1,000 mcg PO DAILY@0800 tablet 10/24/18 Fluticasone/Salmeterol [Advair 250-50 Diskus] 1 ea IH BID #1 inhaler 10/24/18 Furosemide [Lasix] 20 mg PO DAILY tablet 10/24/18 Metoprolol Tartrate [Lopressor (beta jarad)] 25 mg PO BID tablet 10/24/18 Polyethylene Glycol 3350 [Miralax] 17 gm PO DAILY PRN PRN packet 10/24/18 Potassium Chloride 20 meq PO DAILY #0 10/24/18 Senna/Docusate Sodium [Senokot-S] 2 tablet PO BID tablet 10/24/18 Tiotropium [place] [Spiriva 18 MCG] 1 puff INHALATION DAILY #1 inhaler 10/24/18 Warfarin [Coumadin] 7.5 mg PO DAILY@1700 tablet 10/24/18 predniSONE tablet See Taper PO DAILY@0800 tablet 10/24/18 The following prescriptions were given: Albuterol Aerosols [Ventolin Aerosols] 2.5 mg INHALATION Q6HWA.RT 30 Days vial.neb. Tiotropium [place] [Spiriva 18 MCG] 1 puff INHALATION DAILY #1 inhaler Fluticasone/Salmeterol [Advair 250-50 Diskus] 1 ea IH BID #1 inhaler Primary Care Physician: Lisa Clancy MD [Primary Care Provider] - Test Results: Test results from this visit will be discussed in further detail at your follow-up appointment, if applicable. Proposed Discharge Date: 10/25/18
--- NOTE | 2018-10-24 20:00 | PCM.RU.DC ---
Rehab Discharge Summary DATE OF ADMISSION: 10/12/18 DATE OF DISCHARGE: 10/25/18 - Rehab Diagnosis Debility Functional decline Weakness Severe COPD Chronic hypoxic respiratory failure Patient Problems: Active and Suspected Problems (Last Reviewed 04/02/18 @ 08:36 by Pankaj Zimmerman MD) Shortness of breath (Acute) Acute respiratory failure (Acute) - Physical Exam General: Alert, Oriented x3, Cooperative, - - dyspneic at rest HEENT: Atraumatic Oral: Moist Mucosa Neck: Supple Lungs: Diminished Cardiovascular: Regular rate, Regular Rhythm, Normal S1, Normal S2 Abdomen: Obese Skin: No rashes Musculoskeletal: Arthritic Changes Lymphatic: No Cervical, Supraclavicular, or Inguinal Adenopathy Neurological: Cranial nerves II-XII grossly intact, Neuro grossly intact Psych/Mental Status: Normal Affect, Anxious, Depressed Vital Signs Temp Pulse Resp BP Pulse Ox 97.6 F L 107 H 26 H 139/84 H 94 10/24/18 14:59 10/24/18 17:08 10/24/18 15:47 10/24/18 17:08 10/24/18 14:59 Oxygen Flow Rate (L/min) 7 Oxygen Delivery Method Nasal Cannula Weight: 77.734 kg Body Mass Index (BMI) 29.0 Intake and Output for Last 24 Hours 10/22/18 10/23/18 10/24/18 23:59 23:59 23:59 Intake Total 960 / 960 720 / 720 960 / 960 Balance 960 / 960 720 / 720 960 / 960 Discharge Diet: No Restrictions Discharge Activity: Return to Normal Activity, No Restrictions May resume sexual activity in: No Restrictions Weight Bearing Status: Full weight bearing Home Medications: Medications to take at Discharge Acetaminophen [Tylenol] 1,000 mg PO Q8H PRN PRN tablet 01/03/17 Ensure Enlive 120 ml PO 4X/DAY 10/12/18 Albuterol Aerosols [Ventolin Aerosols] 2.5 mg INHALATION Q6HWA.RT 30 Days vial.neb. 10/24/18 Albuterol Sulfate [Ventolin Hfa] 2 puff INHALATION Q6H PRN PRN #18 g 10/24/18 Cyanocobalamin [Vitamin B12] 1,000 mcg PO DAILY@0800 tablet 10/24/18 Fluticasone/Salmeterol [Advair 250-50 Diskus] 1 ea IH BID #1 inhaler 10/24/18 Furosemide [Lasix] 20 mg PO DAILY tablet 10/24/18 Metoprolol Tartrate [Lopressor (beta jarad)] 25 mg PO BID tablet 10/24/18 Polyethylene Glycol 3350 [Miralax] 17 gm PO DAILY PRN PRN packet 10/24/18 Potassium Chloride 20 meq PO DAILY #0 10/24/18 Senna/Docusate Sodium [Senokot-S] 2 tablet PO BID tablet 10/24/18 Tiotropium [place] [Spiriva 18 MCG] 1 puff INHALATION DAILY #1 inhaler 10/24/18 Warfarin [Coumadin] 7.5 mg PO DAILY@1700 tablet 10/24/18 predniSONE tablet See Taper PO DAILY@0800 tablet 10/24/18 Following Prescrptions Were Given to Patient: Albuterol Aerosols [Ventolin Aerosols] 2.5 mg INHALATION Q6HWA.RT 30 Days vial.neb. Tiotropium [place] [Spiriva 18 MCG] 1 puff INHALATION DAILY #1 inhaler Fluticasone/Salmeterol [Advair 250-50 Diskus] 1 ea IH BID #1 inhaler Primary Care Physician: Lisa Clancy MD [Primary Care Provider] - Rehab Course The patient is a 73 year old F admitted on account of severe weakness, functional decline and debility following admission for exacerbation of severe COPD. patient admitted to the TCU for rehab and has improved as much as is able. Requires more assistance with ADLs and so will be transitioning to an ECF for further care. Guideline base treatment of her severe COPD has been instituted. Patient will benefit from pulmonary rehabilitation as well. This will need to be the emphasis of her next phase of post acute care. [] Meaningful Use Info Meaningful Use Diagnoses (Choose all that apply): None applicable
[2018-10-24] MEDS: Mag Hydrox/Al Hydrox/Simeth 30 ML UDC 15 ML PO (23:32)
--- NOTE | 2018-10-24 23:33 | EKG12_ITS ---
Test Reason : CHEST PAIN Blood Pressure : / mmHG Vent. Rate : 126 BPM Atrial Rate : 288 BPM P-R Int : 000 ms QRS Dur : 070 ms QT Int : 292 ms P-R-T Axes : 000 028 042 degrees QTc Int : 422 ms Atrial fibrillation Abnormal ECG Confirmed by JESENIA ARMAS, ARIES ([id number]), editor in chief newspaper YANA MOORE ([id number]) on 10/29/2018 10:50:43 AM Referred By: Armando Gracia Confirmed By:ARIES BA MD
[2018-10-24] MEDS: Acetaminophen 500 MG Tablet 1000 MG PO (23:46)
[2018-10-25] VITALS: BP 142/77; PULSE 76; RESP 22; O2SAT 98
--- NOTE | 2018-10-25 00:23 | NURSING ---
Addendum entered by Virgie Lai 10/25/18 00:53: This nurse did reassessment of pain and patien stated 0/10 at present. This nurse offered to bring her to nurses station for closer observation. Patent decided to turn room light off and go to sleep. This nurse reassured patient she would be monitored throughout the night. Patient agreed. Patient appears calm at this time. Original Note: Pt complaint of chest tightness rating it 9/10. Pt stating pain like before with heartburn. PRN Mylanta given with tylenol. Stat EKG ordered showing AFIB. 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 BP 145/94. O2 94% 6L. HR running between 70-130's. Pt very poor historian of past medical history and meds. Pt requesting Nitro but stating she has never had it before just heard it helps with chest pain. This nurse educated pt on use of medication. This nurse questioning pt if she is anxious about D/C later today. Pt stating yes d/t being unsure of where she will be going. Pt laughing during discussion. WAREHOUSE CLERK present in room during discussion. By the end of the discussion pt rating pain 0/10 and stating the mylanta helped. WAREHOUSE CLERK exited room and then pt stating pain was coming back. This nurse asked pt to rate pain again. Pt stating its the same as before. This nurse asking pt to elaborate which time she was talking about. Pt laughing and unwilling to clarify. Pt stating that her jaw was beginning to feel tingly. Pt smiling at this nurse and not appearing to be in any distress. This nurse informed pt the doctor would be updated. Dr. Sanders updated. NNO. Continue to monitor.
[2018-10-25 00:39] VITALS: BP 145/94; PULSE 112; RESP 20; O2SAT 94
[2018-10-25] MEDS: Menthol/Lanolin/Calamine/Znox 113 GM Tube 1 APPLIC TOPICAL ×2 (06:16→14:05)
[2018-10-25 06:18] VITALS: BP 128/68; PULSE 88
[2018-10-25] MEDS: Polyethylene Glycol 3350 17 GM PACKET PO (06:18)
[2018-10-25] MEDS: Metoprolol Tartrate 25 MG Tablet PO (06:18)
[2018-10-25] MEDS: Furosemide 20 MG Tablet PO (06:19)
[2018-10-25] MEDS: Senna/Docusate Sodium 1 Tablet PO (06:19)
[2018-10-25] MEDS: Nystatin Powder 15gm Bottle 1 APPLIC TOPICAL ×2 (06:19→14:06)
[2018-10-25 06:21] LABS: International Normalized Ratio 2.5; Prothrombin Time (Protime)PT. 27.3 SECONDS (11.7-14.9)
[2018-10-25 06:30] VITALS: PULSE 88; RESP 18; O2SAT 98
[2018-10-25] MEDS: predniSONE 20 MG Tablet 60 MG PO (08:12)
[2018-10-25] MEDS: Cyanocobalamin 500 MCG Tablet 1000 MCG PO (08:13)
--- NOTE | 2018-10-25 10:31 | CASEMGMT ---
Social Work VM left with [facility] requesting determination of acceptance. Level of care submitted to [facility]. CORNELIA Palencia
[2018-10-25 10:55] VITALS: PULSE 112; RESP 20; O2SAT 95
--- NOTE | 2018-10-25 14:03 | CASEMGMT ---
Social Work Return call from Simin at [facility] and they are able to accept pt. LOC received from [facility] SW informed pt of d/c plan and pt agreeable. SW spoke with pt dgt Sushila on phone and informed of d/c planned for today and dgt is agreeable. Would prefer pt be transferred via ambulette. 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 Nursing, [facility], pt and pt dgt notified of d/c time. No further d/c needs. Plan: [facility] CORNELIA Palencia
[2018-10-25 14:21] VITALS: BP 138/69; PULSE 55; RESP 18; TEMP 36.6; O2SAT 93
--- NOTE | 2018-10-25 14:45 | NURSING ---
Report called to [facility] at this time. lynnette here to transport pt, maintained oxygen at 6L via [place]
--- NOTE | 2018-10-26 10:58 | CASEMGMT ---
Insurance: TC to Ayde, left voice mail for Laura regarding patient [facility] 10[facility]25/17 [facility] Auth #[id number].
== END 2018-10-25 14:45 | disposition skilled nursing facility (03) | DRG 948 ==
PROVIDERS: Admitting Provider Family Medicine Geriatric Medicine; Family Provider Internal Medicine; PCP Internal Medicine; Referring Provider Family Medicine Geriatric Medicine; Visit Provider Family Medicine Geriatric Medicine
DX: R53.81 Other malaise (principal); J44.1 Chronic obstructive pulmonary disease with (acute) exacerbation; I50.32 Chronic diastolic (congestive) heart failure; J96.11 Chronic respiratory failure with hypoxia; E87.6 Hypokalemia; I48.2 Chronic atrial fibrillation; M19.90 Unspecified osteoarthritis, unspecified site; I11.0 Hypertensive heart disease with heart failure; F17.210 Nicotine dependence, cigarettes, uncomplicated; Z86.711 Personal history of pulmonary embolism; Z86.718 Personal history of other venous thrombosis and embolism
CPT/HCPCS: 36415; 71046; 80048; 85025; 85610; 93005; 94640; 97110; 97116; 97162; 97166; 97530; 97535; 97802; 99406

== ENCOUNTER → 2018-11-01 05:00 | Outpatient (REF) | payer MEDICARE, SELFPAY ==
[2018-10-13 05:37] VITALS: BMI 29.0
[2018-11-01 08:07] LABS: Hematocrit 37.3 % (37-47); Mean Corp Hgb Conc 26.8 g/gl (32-36); Mean Corpuscular Hgb 28.3 pg (27.0-32.0); Mean Corpuscular Volume 105.7 fL (81-99); Mean Platelet Vol. 11.4 fl (6.2-12.0); Platelet Count 151 K/mm3 (150-450); RBC Distribution Width CV 14.8 % (11.6-14.6); RBC Distribution Width SD 56.3 fl (35.1-43.9); Red Blood Count 3.53 M/mm3 (4.2-5.4); White Blood Count 9.3 K/mm3 (4.4-11.0)
[2018-11-01 08:11] LABS: International Normalized Ratio 3.1; Prothrombin Time (Protime)PT. 31.9 SECONDS (11.7-14.9); Scan Indicated on CBC? Y/N NO
[2018-11-01 08:15] LABS: AST(SGOT) 14 U/L (15-37); Alanine Aminotransfer ALT/SGPT 28 U/L (13-56); Albumin, Serum 2.8 g/dL (3.2-5.0); Alkaline Phosphatase 43 U/L (45-117); Anion Gap 0 (5-15); BUN 28 mg/dL (7-18); BUN/Creat Ratio 26.9 RATIO (10-20); Calcium,Total 8.9 mg/dL (8.5-10.1); Chloride 100 mmol/L (98-107); Creatinine, Serum 1.04 mg/dL (0.55-1.02); EST Glomerular Filtration Rate 55 mL/min (>60); Est Glom Filt Rate - Afr Amer 66 mL/min (>60); Globulin 2.9 g/dL (2.2-4.2); Glucose 109 mg/dL (74-106); Potassium 4.9 mmol/L (3.5-5.1); Protein, Total 5.7 g/dL (6.4-8.2); Sodium Level 142 mmol/L (136-145)
[2018-11-01 10:46] LABS: Vitamin B12 781 pg/mL (211-911)
== END ==
LOC: OLS.WCC 05:00
PROVIDERS: Visit Provider Family Medicine
DX: J44.9 Chronic obstructive pulmonary disease, unspecified (principal)
CPT/HCPCS: 36415; 80053; 82607; 85027; 85610

== ENCOUNTER → 2018-11-08 05:00 | Outpatient (REF) | payer MEDICARE, SELFPAY ==
[2018-10-13 05:37] VITALS: BMI 29.0
[2018-11-08 08:50] LABS: Prothrombin Time Fingerstick 33.8 SEC (11.9-14.4)
== END ==
LOC: OLS.WCC 05:00
PROVIDERS: Visit Provider Family Medicine
DX: I48.91 Unspecified atrial fibrillation (principal); I10 Essential (primary) hypertension; Z79.899 Other long term (current) drug therapy; Z79.01 Long term (current) use of anticoagulants
CPT/HCPCS: 36416; 85610

== ENCOUNTER 2018-11-14 09:48 | Inpatient (IN) | payer MEDICARE, MEDICAID, SELFPAY ==
[2018-10-13 05:37] VITALS: BMI 29.0
[2018-11-14] VITALS (33 sets, daily range): BP systolic 91–150; BP diastolic 50–117; PULSE 45–155; RESP 12–34; TEMP 35.6–36.9; O2SAT 46–100; BMI 31.8; BMI 30.4
--- NOTE | 2018-11-14 09:57 | EKG12_ITS ---
Test Reason : RESPIRATORY FAILURE Blood Pressure : / mmHG Vent. Rate : 153 BPM Atrial Rate : 306 BPM P-R Int : 000 ms QRS Dur : 082 ms QT Int : 234 ms P-R-T Axes : -84 030 112 degrees QTc Int : 373 ms Atrial flutter with 2:1 A-V conduction Nonspecific ST and T wave abnormality Abnormal ECG Confirmed by JOSE PAUL ([id number]), newspaper copy editor YANA MOORE ([id number]) on 11/16/2018 10:50:52 AM Referred By: TYLER Confirmed By:JOSE PAUL
--- NOTE | 2018-11-14 10:00 | RAD_ITS ---
STUDY: X-RAY CHEST REASON FOR EXAM: Female, 73 years old. Cough. Respiratory distress. TECHNIQUE: Single AP portable view of the chest. COMPARISON: Comparison is made with prior study dated October 24, 2018. FINDINGS: EKG electrodes are seen. Stable mild increased linear markings at the lung bases suggestive of scarring. Minimal increased markings in the right upper lobe. Early infiltrate should be ruled out. Widening of the right paratracheal region most likely secondary to vascular ectasia. Normal size heart. Normal mediastinum and jeffrey. Normal visualized pulmonary arteries. There is atherosclerotic calcification of the aortic arch with tortuosity. There are diffuse degenerative changes of the visualized thoracic spine. There is degenerative osteoarthritis of the bilateral shoulders. There is no demonstrated abnormality of the visualized soft tissue structures of the upper abdomen. RAD/Chest 1 View (Portable) IMPRESSION: Questionable early right upper lobe infiltrate superimposed on mild bibasilar scarring. Electronically Signed: Krishna Grant, at 10:30 EDT , Service support ,
--- NOTE | 2018-11-14 10:02 | ED.DCSUM_ITS ---
- ER Visit Summary Date of Service: 11/14/18 Chief Complaint: Shortness of breath History of Present Illness: The patient is a 73 F who has shortness of breath and low pulse ox. Patient resides in a [place] [facility] [place]. Today she was more short of breath. [facility] staff checked her pulse ox and it was around 36%. She was placed on 9 L nasal cannula. Patient does have a history of COPD and recently stopped smoking about a month ago when she went into the [place] [facility] [place]. She was admitted at that time for COPD exacerbation. She has had been intubated previously for her COPD. EMS was called and they placed her on CPAP and was able to help support her breathing. She is DNR comfort care only Physical Examination: Vital signs are reviewed. Patient tachycardic and tachypneic in respiratory distress. HEENT exam reveals right eye chemosis. The pupils are equal. Heart is tachycardic and regular without murmurs. Lungs have diminished sounds throughout with some faint wheezing. Abdomen is soft and nontender. Extremities have no edema. She is alert and oriented to self and will nod yes or no to questions. She has diffuse overall weakness. Test Results: EKG is atrial flutter with nonspecific ST and T wave changes. Chest x-ray reveals a right upper lobe infiltrate. White blood cell count 16.5, BNP 456. Creatinine 1.28. Troponin 0 0.017. Emergency Department Course and Treatment: Patient was given aerosol treatments and was pleased on BiPAP upon arrival. She was given Solu-Medrol as well. I also gave her a dose of Cardizem and she converted to atrial fibrillation with a rate in the 70s. Her pulse ox was in the high 90s on the BiPAP. Her ABG showed a respiratory acidosis with a PCO2 greater than 130. Patient will not be intubated due to her DNR. Patient will be admitted to the hospital on vancomycin and Zosyn for the pneumonia. Treatment Plan: [] Disposition: Admit Impression: acute respiratory failure COPD exacerbation Hypoxia Healthcare associated pneumonia Atrial flutter This note was generated with [employer] software. It may contain incorrect words, spelling, and punctuation that were not noted in review of the chart prior to signing ED Disposition - Plan for ED Patient: Referrals: Lisa Clancy MD [STAFF PHYSICIAN] -
[2018-11-14 10:11] LABS: Absolute Lymphocyte Count 4.21 X10^3/ul (0.83-4.51); Absolute Neutrophil Count 10.5 X10^3/uL (2.0-7.7); Basophil# 0.02 X10^3/uL; Basophil% 0.1 % (0-1); Eosinophil# 0.09 X10^3/uL; Eosinophils% 0.5 % (0-5); Hematocrit 40.4 % (37-47); Hemoglobin 10.5 g/dl (12.0-15.0); Lymphocyte # 4.21 X10^3/ul (4.0); Lymphocyte % 25.5 % (19-41); Mean Corpuscular Hgb 28.7 pg (27.0-32.0); Mean Corpuscular Volume 110.4 fL (81-99); Mean Platelet Vol. 10.6 fl (6.2-12.0); Monocyte# 1.45 X10^3/uL; Monocyte% 8.8 % (0-10); Neutrophil # 10.48 X10^3/uL (2.7-7.7); Neutrophil % 63.5 % (47-70); Platelet Count 170 K/mm3 (150-450); RBC Distribution Width CV 14.8 % (11.6-14.6); RBC Distribution Width SD 59.7 fl (35.1-43.9); Red Blood Count 3.66 M/mm3 (4.2-5.4); White Blood Count 16.5 K/mm3 (4.4-11.0)
[2018-11-14] MEDS: Albuterol 2.5 MG/3 ML VIAL.NEB. INHALATION ×3 (10:19)
[2018-11-14 10:21] LABS: POSITIVE COUNT NO; POSITIVE DIFFERENTIAL NO; POSITIVE MORPHOLOGY NO
[2018-11-14 10:36] LABS: BUN 32 mg/dL (7-18); Calcium,Total 9.7 mg/dL (8.5-10.1); Carbon Dioxide > 45.0 mmol/L (21.0-32.0); Chloride 97 mmol/L (98-107); Creatinine, Serum 1.28 mg/dL (0.55-1.02); EST Glomerular Filtration Rate 43 mL/min (>60); Est Glom Filt Rate - Afr Amer 52 mL/min (>60); Estimated Creatinine Clearance 34.17 ml/min; Glucose 253 mg/dL (74-106); Potassium 4.9 mmol/L (3.5-5.1); Sodium Level 141 mmol/L (136-145)
[2018-11-14 10:37] LABS: Lactic Acid 1.3 mmol/L (0.4-2.0)
[2018-11-14] MEDS: MethylPREDNISolone 125 MG/2 ML Vial IV (10:39)
[2018-11-14] MEDS: dilTIAZem 25 MG/5 ML Vial 20 MG IV BOLUS (10:41)
[2018-11-14 10:52] LABS: BNP,B-Type NATRIURETIC PEPTIDE 456.5 pg/mL (0-100)
--- NOTE | 2018-11-14 11:20 | CPS ---
ABG results read to Dr. Goode
--- NOTE | 2018-11-14 11:24 | CASEMGMT ---
RN CM Assessment Introduced role of RN CM to patient Dtr Sushila and Son-in-law Gm at bedside.? Patient is currently on Bipap and unable?to participate in RN CM Assessment. ?Information obtained from daughter. Care providers, pharmacy, and demographics verified. Presentation: SON at [facility] with SPO2 36%, placed on 9L, patient stopped smoking 1 month ago. Admit Dx: COPD Exacerbation, Acute on Chronic Resp Failure Re-Admit: No, Inpt 10/06-10/12/18 for Acute Resp Failure and COPD Exacerbation Barriers/Issues: Placed at [facility] after LT Resident after last Admit PCP: Tyler Keller Specialists: Cardio- Dr Chowdary (has an appt in December), Pulm- Dr Shepard (has not seen lately) Preferred Pharmacy: [facility] Insurance: [employer] [facility] PPO, [facility] Rx Benefit:?Yes LNOK: DTR Sushila Huerta and Son-In-Law Gm [place] LW/HPOA: Yes Both, HPOA- Dtr Sushila Huerta Living Arrangements:?LT Resident at [facility] ADL?s: WC Bound, has not been able to ambulate with walker but does receive PT at facility, Total assist with all ADL's except Dtr thinks patient still manages to dress self Transportation: Dtr Sushila per previous assessment DME: Oxygen 6L Continuous, CPAP, Neb, WC, Walker HHC: None per previous assessment SNF: Current [facility] Goal: Return to [facility] DC PLAN: Return to [facility], no further anticipated needs identified at this time. MELLY Hawkins
[2018-11-14 11:25] LABS: Blood Gas Specimen Type ART; EPAP 6; FI02 80; IPAP 12; PO2 141 mmHG (75-100); RR 12; Time Given 1105; pCO2 > 130.0 mmHg (35-45)
--- NOTE | 2018-11-14 11:33 | HP.PCM_ITS ---
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 (8) Hx of bilateral hip replacements Status: Chronic (9) Toe pain, left Status: Chronic (10) Toe pain, right Status: Chronic (11) Tinea unguium Status: Chronic (12) Atrial fibrillation Status: Chronic (13) Osteoarthritis Status: Chronic (14) Fall Status: Acute (15) Fracture of left pelvis Status: Acute (16) Closed left hip fracture Status: Resolved (17) Left elbow fracture Status: Acute (18) Hypertension Status: Chronic (19) Hemorrhagic shock Status: Resolved (20) Respiratory failure Status: Chronic (21) COPD (chronic obstructive pulmonary disease) Status: Chronic (22) Atrial fibrillation with RVR Status: Chronic (23) Tobacco abuse Status: Chronic (24) Anemia Status: Chronic Qualifiers: (25) Retroperitoneal bleeding Status: Resolved (26) DVT (deep venous thrombosis) Status: Chronic Qualifiers: Affected thrombotic vein of extremity: unspecified vein of extremity Chronicity: unspecified Laterality: unspecified laterality (27) Left hip pain Status: Chronic (28) Olecranon fracture Status: Chronic (29) Pubic ramus fracture Status: Chronic History of Present Illness Date of Admission: 11/14/18 Chief Complaint: Shortness of breath, sudden onset today The patient is a 73 year old F with multiple comorbidities as listed above was brought into ER from assisted for sudden onset of shortness of breath although she has end-stage COPD, history of intubation a month ago. Her pulse ox was 40% on room air. Usually she is on 6 L of oxygen through nasal cannula which was changed to 9 L in assisted. EMS put her on CPAP and brought to ER. As per the assisted paper, patient is DNR CC. The history is mainly taken from patient's daughter and son-in-law near the bedside. Patient is on BiPAP, very lethargic with eyes closed and opens eyes on verbal command. As per daughter, she was fine until yesterday. No history of recent fever or chills. She has chronic cough and shortness of breath from COPD. In ED, heart rate 150 in a flutter, blood pressure 150/88 tachypneic respiratory 25/min and was put on 100% BiPAP. Patient was given 20 mg IV Cardizem that brought her blood pressure down, BP 98/53. Heart rate in 90s, A. fib on monitor. Basic blood work in ED shows bicarb more than 45 with her baseline around 35-40. ABG PCO2 more than 130, pH 7.1. Chest x-ray shows questionable early right upper lobe infiltrate superimposed on bibasilar scarring. 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 (Chronic) Toe pain, left (Chronic) Toe pain, right (Chronic) Tinea unguium (Chronic) Atrial fibrillation (Chronic) Osteoarthritis (Chronic) Hypertension (Chronic) Respiratory failure (Chronic) COPD (chronic obstructive pulmonary disease) (Chronic) Atrial fibrillation with RVR (Chronic) Tobacco abuse (Chronic) Anemia (Chronic) DVT (deep venous thrombosis) (Chronic) Left hip pain (Chronic) Olecranon fracture (Chronic) Pubic ramus fracture (Chronic) Medical History: Medical History (Last Reviewed 04/02/18 @ 08:36 by Pankaj Zimmerman MD) Toe pain, left (Chronic) M79.675 Toe pain, right (Chronic) M79.674 Tinea unguium (Chronic) B35.1 Atrial fibrillation (Chronic) I48.91 Osteoarthritis (Chronic) M19.90 Fall (Acute) W19.XXXA Fracture of left pelvis (Acute) S32.9XXA Closed left hip fracture (Resolved) S72.002A Hypertension (Chronic) I10 Hemorrhagic shock (Resolved) [id number] Respiratory failure (Chronic) J96.90 COPD (chronic obstructive pulmonary disease) (Chronic) J44.9 Atrial fibrillation with RVR (Chronic) I48.91 Tobacco abuse (Chronic) Z72.0 Anemia (Chronic) D64.9 Retroperitoneal bleeding (Resolved) R58 DVT (deep venous thrombosis) (Chronic) I82.409 Left hip pain (Chronic) M25.552 Olecranon fracture (Chronic) S52.023A Pubic ramus fracture (Chronic) S32.599A Allergies metformin Adverse Reaction (Verified 11/14/18 11:21) Diarrhea Home Medications: Ambulatory Orders Medication Instructions Recorded Acetaminophen [Tylenol] 1,000 mg PO Q8H PRN PRN tablet 01/03/17 Ensure Enlive 120 ml PO 4X/DAY 10/12/18 Albuterol Aerosols [Ventolin 2.5 mg INHALATION Q6HWA.RT 30 Days 10/24/18 Aerosols] vial.neb. Albuterol Sulfate [Ventolin Hfa] 2 puff INHALATION Q6H PRN PRN #18 g 10/24/18 Cyanocobalamin [Vitamin B12] 1,000 mcg PO DAILY@0800 tablet 10/24/18 Fluticasone/Salmeterol [Advair 1 ea IH BID #1 inhaler 10/24/18 250-50 Diskus] Furosemide [Lasix] 20 mg PO DAILY tablet 10/24/18 Metoprolol Tartrate [Lopressor 25 mg PO BID tablet 10/24/18 (beta jarad)] Polyethylene Glycol 3350 [Miralax] 17 gm PO DAILY PRN PRN packet 10/24/18 Potassium Chloride 20 meq PO DAILY #0 10/24/18 Tiotropium [place] [Spiriva 18 MCG] 1 puff INHALATION DAILY #1 inhaler 10/24/18 Warfarin [Coumadin] 7.5 mg PO DAILY@1700 tablet 10/24/18 Cholecalciferol (VIT D3) [Vitamin 1,000 unit PO DAILY 11/14/18 D] Loperamide [Imodium] 2 mg PO Q6H PRN PRN 11/14/18 Senna/Docusate Sodium [Senokot-S] 1 tablet PO DAILY 11/14/18 busPIRone [Buspar] 10 mg PO BID 11/14/18 busPIRone [Buspar] 15 mg PO BID 11/14/18 Surgical History: Surgical History (Last Reviewed 03/02/18 @ 09:36 by Pankaj Zimmerman MD) History of inferior vena caval filter placement (Chronic) Z95.828 Hx of bilateral hip replacements (Chronic) Z96.643 Left elbow fracture (Acute) S42.402A Surgical History: appendectomy, total hip arthroplasty - Bilateral., - - s/p IVC filter, Left elbow fracture. Psychiatric History: No pertinent psych hx [employer] History: No pertinent [employer] history Smoking Status: Former smoker - *Family History Maternal Family History: Family History (Last Reviewed 03/02/18 @ 09:36 by Pankaj Zimmerman MD) Father Diabetes Heart disease Hypertension Mother Heart disease Hypertension History Items: High Cholesterol, Heart Disease, Hypertension Paternal Family History: Family History (Last Reviewed 03/02/18 @ 09:36 by Pankaj Zimmerman MD) Father Diabetes Heart disease Hypertension Mother Heart disease Hypertension History Items: Diabetes, High Cholesterol, Heart Disease, Hypertension Review of Systems Constitutional: Reports: Malaise, Weakness, Fatigue Respiratory: Reports: Cough, Shortness of breath at rest, Shortness of breath upon exertion Gastrointestinal: Denies: Abdominal Pain, Nausea, Vomiting Genitourinary: Denies: Dysuria Musculoskeletal: Reports: Joint Pain Neurological: Denies: Numbness, Tingling, Focal weakness Psychiatric: Reports: Anxiety. Denies: Homicidal Ideations, Suicidal Ideations Hematologic/ Lymphatic: Denies: Easy Bruising, Easy Bleeding Unable to obtain accurate/complete ROS d/t: Patient is lethargic. Hardly open eyes VTE Information - Inpt Only VTE Present on Admission: No VTE Mechan Device Prophylaxis: None VTE Pharm Prophylaxis ordered?: Yes - Physical Exam General: Confused, Disoriented, Lethargic, - - Drowsy, moribund HEENT: PERRLA, EOMI, - - Right subconjunctival hemorrhage Oral: - - On BiPAP Neck: Supple, No JVD, Negative Carotid Bruits Lungs: Diminished - Air entry severely diminished, Short of Breath, Tachypneic Cardiovascular: Normal S1, Normal S2, Irregular Rate, Tachycardic Abdomen: Bowel Sounds Present, Soft, Non Tender, Non-Distended Extremities: Edema Skin: No rashes, No breakdown Musculoskeletal: No Tenderness to Palpation of Joints or Extremities, Arthritic Changes Lymphatic: No Cervical, Supraclavicular, or Inguinal Adenopathy Neurological: Cranial nerves II-XII grossly intact, - - Detail neuro exam not possible because patient is minimally responsive Vital Signs Temp Pulse Resp BP Pulse Ox 96.1 F L 93 25 H 98/53 L 95 11/14/18 11:12 11/14/18 11:21 11/14/18 11:21 11/14/18 11:21 11/14/18 11:21 Oxygen Flow Rate (L/min) 70 Oxygen Delivery Method Bi-pap Weight: 191 lb 12.835 oz Body Mass Index (BMI) 31.8 Laboratory Tests Past 24 Hrs 11/14/18 11/14/18 11/14/18 09:54 09:54 09:54 WBC 16.5 H RBC 3.66 L Hgb 10.5 L Hct 40.4 MCV 110.4 H MCH 28.7 MCHC 26.0 L RDW 14.8 H RDW Differential 59.7 H Plt Count 170 MPV 10.6 Immature Gran % (Auto) 1.600 H Neut % (Auto) 63.5 Lymph % (Auto) 25.5 [place] % (Auto) 8.8 Eos % (Auto) 0.5 Baso % (Auto) 0.1 Absolute Neuts (auto) 10.5 H Absolute Lymphs (auto) 4.21 Total Counted Not Reportable Specimen Type pH Bicarbonate Actual POC Total CO2 Base Excess O2 Saturation O2 % ABG pCO2 ABG pO2 Respiration Rate O2 Delivery Device EPAP IPAP Blood Gas Notified Whom Blood Gas Notified Time Sodium 141 Potassium 4.9 Chloride 97 L Carbon Dioxide > 45.0 H* Anion Gap TNP BUN 32 H Creatinine 1.28 H Estim Creat Clear Calc 34.17 Est GFR (MDRD) Af Amer 52 L Est GFR (MDRD) Non-Af 43 L BUN/Creatinine Ratio 25.0 H Glucose 253 H Lactic Acid Calcium 9.7 Troponin I 0.017 B-Natriuretic Peptide 456.5 H 11/14/18 11/14/18 09:54 11:01 WBC RBC Hgb Hct MCV MCH MCHC RDW RDW Differential Plt Count MPV Immature Gran % (Auto) Neut % (Auto) Lymph % (Auto) [place] % (Auto) Eos % (Auto) Baso % (Auto) Absolute Neuts (auto) Absolute Lymphs (auto) Total Counted Specimen Type ART pH 7.10 L* Bicarbonate Actual Pending POC Total CO2 Pending Base Excess Pending O2 Saturation Pending O2 % 80 ABG pCO2 > 130.0 H* ABG pO2 141 H Respiration Rate 12 O2 Delivery Device Bi / C PAP EPAP 6 IPAP 12 Blood Gas Notified Whom ED Blood Gas Notified Time 1105 Sodium Potassium Chloride Carbon Dioxide Anion Gap BUN Creatinine Estim Creat Clear Calc Est GFR (MDRD) Af Amer Est GFR (MDRD) Non-Af BUN/Creatinine Ratio Glucose Lactic Acid 1.3 Calcium Troponin I B-Natriuretic Peptide Assessment/Plan All Active Problems (Last Reviewed 04/02/18 @ 08:36 by Pankaj Zimmerman MD) Heme + stool (Acute) Acute on chronic respiratory failure with hypoxia and hypercapnia (Acute) COPD with exacerbation (Acute) Fall (Acute) Fracture of left pelvis (Acute) Closed left hip fracture (Resolved) Left elbow fracture (Acute) Hemorrhagic shock (Resolved) Retroperitoneal bleeding (Resolved) The patient is a 73 year old F with multiple comorbidities as listed above was brought into ER from assisted for sudden onset of shortness of breath although she has end-stage COPD, history of intubation a month ago. Her pulse ox was 40% on room air. Usually she is on 6 L of oxygen through nasal cannula which was changed to 9 L in assisted. EMS put her on CPAP and brought to ER. As per the assisted paper, patient is DNR CC. The history is mainly taken from patient's daughter and son-in-law near the bedside. Patient is on BiPAP, very lethargic with eyes closed and opens eyes on verbal command. As per daughter, she was fine until yesterday. No history of recent fever or chills. She has chronic cough and shortness of breath from COPD. In ED, heart rate 150 in a flutter, blood pressure 150/88 tachypneic respiratory 25/min and was put on 100% BiPAP. Patient was given 20 mg IV Cardizem that brought her blood pressure down, BP 98/53. Heart rate in 90s, A. fib on monitor. Basic blood work in ED shows bicarb more than 45 with her baseline around 35-40. ABG PCO2 more than 130, pH 7.1. Chest x-ray shows questionable early right upper lobe infiltrate superimposed on bibasilar scarring. 1. Acute on chronic combined hypoxic and hypercarbic respiratory failure: She was seen by Dr. Shepard. Patient is being admitted in ICU after discussion with patient's daughter, Ms. Sushila Huerta. She change the CODE STATUS from DNR CC to DNR CCA. She is okay with keeping BiPAP but no intubation, chest compression or shock. We will repeat the blood gas after an hour. Order Checker Packer Processer input appreciated. 2. COPD exacerbation with chronic CO2 retainer: On bronchodilator, IV Solu- Medrol, incentive spirometry and chest physiotherapy. She is on a Spiriva and Advair assisted. 3. Right upper lobe infiltrate: Patient does not have fever although he was tachycardic with A. fib/flutter and tachypneic. Pneumonia work-up ordered. Empirically started on IV Zosyn. Patient got 1 dose of vancomycin and Zosyn in ER. MRSA nasal screen. 4. Atrial flutter/A. fib with RVR: Currently heart rate is controlled with 20 mg IV Cardizem. Patient is on Toprol 25 mg twice daily, Coumadin at home. INR 2.1 on 10/12. 5. Other comorbidities include hypertension, dyslipidemia, DVT with PE on Coumadin, history of IVC filter, use degenerative joint disease, history of fall and closed left hip fracture. Multiple comorbidities complicates the present care and expect difficult and delay recovery. Limited physical capacity Code Visit Inpatient E&M: 33093 Init Hosp L3
--- NOTE | 2018-11-14 12:45 | PCM.CON.CC ---
Reason for Consult Date of Consultation: 11/14/18 Reason for Consultation: Acute on chronic respiratory failure History of Present Illness: The patient is a 73-year-old female, with a history as outlined below, who presented to the emergency department in an encephalopathic state. Per report, the patient was noted to be significantly hypoxemic in her assisted facility. The patient has a known history of end-stage COPD, chronic hypoxemic respiratory failure and continuous tobacco dependency. 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 I did at one point see the patient in the pulmonary medicine clinic, but she has been lost to follow-up for quite some time. The patient was last admitted to the hospital October 06 through October 12, during which time she was treated for acute on chronic respiratory failure and COPD exacerbation. At the time of her last hospitalization, the patient was noted to be a DNR CCA. Upon discharge, the patient went for a short period of time to the rehab facility and then went to a assisted facility. She does appear to have signed DNR paperwork from the nursing facility from mid October indicating that she is a DNR Comfort Care status. On presentation to the emergency department, the patient was noted to be tachycardic, tachypneic and hypertensive. Laboratory evaluation revealed an elevated white blood cell count to 16,000. INR was elevated to 3.6. Initial arterial blood gas revealed a pH of 7.1 with a corresponding PCO2 of greater than 130 and a PO2 of 141. Chemistry profile was notable for a serum bicarbonate of greater than 45 and creatinine of 1.28. Lactate was within normal limits. BNP was elevated to 456. The patient's plain film chest x-ray revealed findings concerning for potential right upper lobe infiltrate. The patient was placed on BiPAP and subsequently started on antibiotics. I did evaluate the patient in the emergency department and did confirm that she did have signed paperwork from her assisted facility indicating a DNR CC status. I called and personally spoke with the patient's daughter who revoked her comfort care status and transition her to DNR CCA without intubation. The patient was subsequently transferred to the medical intensive care unit. 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 (Chronic) Toe pain, left (Chronic) Toe pain, right (Chronic) Tinea unguium (Chronic) Atrial fibrillation (Chronic) Osteoarthritis (Chronic) Hypertension (Chronic) Respiratory failure (Chronic) COPD (chronic obstructive pulmonary disease) (Chronic) Atrial fibrillation with RVR (Chronic) Tobacco abuse (Chronic) Anemia (Chronic) DVT (deep venous thrombosis) (Chronic) Left hip pain (Chronic) Olecranon fracture (Chronic) Pubic ramus fracture (Chronic) Medical History: Medical History (Last Reviewed 04/02/18 @ 08:36 by Pankaj Zimmerman MD) Toe pain, left (Chronic) M79.675 Toe pain, right (Chronic) M79.674 Tinea unguium (Chronic) B35.1 Atrial fibrillation (Chronic) I48.91 Osteoarthritis (Chronic) M19.90 Fall (Acute) W19.XXXA Fracture of left pelvis (Acute) S32.9XXA Closed left hip fracture (Resolved) S72.002A Hypertension (Chronic) I10 Hemorrhagic shock (Resolved) [id number] Respiratory failure (Chronic) J96.90 COPD (chronic obstructive pulmonary disease) (Chronic) J44.9 Atrial fibrillation with RVR (Chronic) I48.91 Tobacco abuse (Chronic) Z72.0 Anemia (Chronic) D64.9 Retroperitoneal bleeding (Resolved) R58 DVT (deep venous thrombosis) (Chronic) I82.409 Left hip pain (Chronic) M25.552 Olecranon fracture (Chronic) S52.023A Pubic ramus fracture (Chronic) S32.599A Allergies metformin Adverse Reaction (Verified 11/14/18 11:21) Diarrhea Home Medications: Ambulatory Orders Medication Instructions Recorded Acetaminophen [Tylenol] 1,000 mg PO Q8H PRN PRN tablet 01/03/17 Ensure Enlive 120 ml PO 4X/DAY 10/12/18 Albuterol Aerosols [Ventolin 2.5 mg INHALATION Q6HWA.RT 30 Days 10/24/18 Aerosols] vial.neb. Albuterol Sulfate [Ventolin Hfa] 2 puff INHALATION Q6H PRN PRN #18 g 10/24/18 Cyanocobalamin [Vitamin B12] 1,000 mcg PO DAILY@0800 tablet 10/24/18 Fluticasone/Salmeterol [Advair 1 ea IH BID #1 inhaler 10/24/18 250-50 Diskus] Furosemide [Lasix] 20 mg PO DAILY tablet 10/24/18 Metoprolol Tartrate [Lopressor 25 mg PO BID tablet 10/24/18 (beta jarad)] Polyethylene Glycol 3350 [Miralax] 17 gm PO DAILY PRN PRN packet 10/24/18 Potassium Chloride 20 meq PO DAILY #0 10/24/18 Tiotropium Garnavillo [Spiriva 18 MCG] 1 puff INHALATION DAILY #1 inhaler 10/24/18 Warfarin [Coumadin] 7.5 mg PO DAILY@1700 tablet 10/24/18 Cholecalciferol (VIT D3) [Vitamin 1,000 unit PO DAILY 11/14/18 D] Loperamide [Imodium] 2 mg PO Q6H PRN PRN 11/14/18 Senna/Docusate Sodium [Senokot-S] 1 tablet PO DAILY 11/14/18 busPIRone [Buspar] 10 mg PO BID 11/14/18 busPIRone [Buspar] 15 mg PO BID 11/14/18 Surgical History: Surgical History (Last Reviewed 03/02/18 @ 09:36 by Pankaj Zimmerman MD) History of inferior vena caval filter placement (Chronic) Z95.828 Hx of bilateral hip replacements (Chronic) Z96.643 Left elbow fracture (Acute) S42.402A Surgical History: appendectomy, total hip arthroplasty - Bilateral., - - s/p IVC filter, Left elbow fracture. Psychiatric History: No pertinent psych hx SENIOR SOFTWARE MANAGER History: No pertinent SENIOR SOFTWARE MANAGER history Smoking Status: Former smoker - *Family History Maternal Family History: Family History (Last Reviewed 03/02/18 @ 09:36 by Pankaj Zimmerman MD) Father Diabetes Heart disease Hypertension Mother Heart disease Hypertension History Items: High Cholesterol, Heart Disease, Hypertension Paternal Family History: Family History (Last Reviewed 03/02/18 @ 09:36 by Pankaj Zimmerman MD) Father Diabetes Heart disease Hypertension Mother Heart disease Hypertension History Items: Diabetes, High Cholesterol, Heart Disease, Hypertension Review of Systems Unable to obtain accurate/complete ROS d/t: Due to encephalopathic state. Objective: The patient's most recent lab work, culture data and imaging studies have all been personally reviewed. - Physical Exam General: - - Obtunded and minimally responsive on BiPAP HEENT: Atraumatic, Normocephalic Oral: Dry Mucosa Neck: Supple, No Nodes, Trachea Midline Lungs: - - Globally diminished air movement bilaterally Cardiovascular: Regular rate, Regular Rhythm, Normal S1, Normal S2, No murmurs Abdomen: Bowel Sounds Present, Soft, Non Tender, Obese Extremities: No clubbing, No cyanosis, Edema Skin: No breakdown Musculoskeletal: No Muscle Wasting Lymphatic: No Cervical, Supraclavicular, or Inguinal Adenopathy Neurological: - - Unable to perform detailed neurological examination as the patient is nonresponsive. Vital Signs Temp Pulse Resp BP Pulse Ox 96.1 F L 93 23 H 104/64 95 11/14/18 11:12 11/14/18 11:42 11/14/18 11:42 11/14/18 11:42 11/14/18 11:42 Oxygen Flow Rate (L/min) 70 Oxygen Delivery Method Bi-pap Weight: 191 lb 12.835 oz Body Mass Index (BMI) 31.8 Laboratory Tests Past 24 Hrs 11/14/18 11/14/18 11/14/18 09:54 09:54 09:54 WBC 16.5 H RBC 3.66 L Hgb 10.5 L Hct 40.4 MCV 110.4 H MCH 28.7 MCHC 26.0 L RDW 14.8 H RDW Differential 59.7 H Plt Count 170 MPV 10.6 Immature Gran % (Auto) 1.600 H Neut % (Auto) 63.5 Lymph % (Auto) 25.5 Routt % (Auto) 8.8 Eos % (Auto) 0.5 Baso % (Auto) 0.1 Absolute Neuts (auto) 10.5 H Absolute Lymphs (auto) 4.21 Total Counted Not Reportable PT INR Specimen Type pH Bicarbonate Actual POC Total CO2 Base Excess O2 Saturation O2 % ABG pCO2 ABG pO2 Respiration Rate O2 Delivery Device EPAP IPAP Blood Gas Notified Whom Blood Gas Notified Time Sodium 141 Potassium 4.9 Chloride 97 L Carbon Dioxide > 45.0 H* Anion Gap TNP BUN 32 H Creatinine 1.28 H Estim Creat Clear Calc 34.17 Est GFR (MDRD) Af Amer 52 L Est GFR (MDRD) Non-Af 43 L BUN/Creatinine Ratio 25.0 H Glucose 253 H Lactic Acid Calcium 9.7 Troponin I 0.017 B-Natriuretic Peptide 456.5 H 11/14/18 11/14/18 11/14/18 09:54 09:54 11:01 WBC RBC Hgb Hct MCV MCH MCHC RDW RDW Differential Plt Count MPV Immature Gran % (Auto) Neut % (Auto) Lymph % (Auto) Routt % (Auto) Eos % (Auto) Baso % (Auto) Absolute Neuts (auto) Absolute Lymphs (auto) Total Counted PT Pending INR Pending Specimen Type ART pH 7.10 L* Bicarbonate Actual Pending POC Total CO2 Pending Base Excess Pending O2 Saturation Pending O2 % 80 ABG pCO2 > 130.0 H* ABG pO2 141 H Respiration Rate 12 O2 Delivery Device Bi / C PAP EPAP 6 IPAP 12 Blood Gas Notified Whom ED MD Blood Gas Notified Time 1105 Sodium Potassium Chloride Carbon Dioxide Anion Gap BUN Creatinine Estim Creat Clear Calc Est GFR (MDRD) Af Amer Est GFR (MDRD) Non-Af BUN/Creatinine Ratio Glucose Lactic Acid 1.3 Calcium Troponin I B-Natriuretic Peptide Clinical Impression(s) from Imaging Studies Chest X-Ray 11/14/18 10:00 IMPRESSION: Questionable early right upper lobe infiltrate superimposed on mild bibasilar scarring. Electronically Signed: Krishna Grant, at 10:30 EDT , Service support , Assessment/Plan RECOMMENDATIONS: 1. Stop continuous supplemental IV fluids. 2. Continue scheduled bronchodilators and IV steroids. 3. Discontinue opiate pain medications. 4. Continue broad-spectrum antimicrobials, pending infectious work-up. 5. Transition from BiPAP to AVAPS with a target TV of 400mL 6. Maintain oxygen saturations 88 to 92%, to prevent paradoxical CO2 retention. 7. Hold Coumadin, given supratherapeutic INR. 8. Discontinue order for subcutaneous Lovenox. IMPRESSIONS: 1. Acute on chronic combined respiratory failure secondary to end-stage COPD with exacerbation The patient has known end-stage COPD has been lost to pulmonary follow-up since 2016. She reportedly quit smoking recently. Although the patient presented to the emergency department with signed DNR paperwork indicating a comfort care status, the patient's daughter subsequently changed her status to DNR CCA without intubation. Given the patient's elevated white blood cell count, continue broad-spectrum antimicrobials, pending infectious work-up. The patient will be transition from conventional BiPAP to AVAPS. Plan to obtain repeat arterial blood gas in 1 hour. The patient requires volume ventilation and all other alternative therapies have been considered and ruled out due to the severity of the disease state and life-threatening condition, including CO2 retention. Due to increased probability of acute exacerbation, the patient requires ventilation to be used during the day as needed, in addition to nightly usage with facemask. 2. Encephalopathy Metabolic in nature and related to hypercarbia. Anticipate improvement with the use of noninvasive positive pressure ventilatory support. 3. Heart failure with preserved ejection fraction Continue outpatient diuretic regimen, given elevated BNP on presentation. 4. Right middle lobe density The patient did have a low-dose CT scan performed in 2015, which did reveal evidence of a 2.9 x 1.8 cm right middle lobe density. Follow-up chest imaging was recommended. However, the patient failed to follow-up. 5. Tobacco dependency, now currently in remission/history of atrial fibrillation/history of DVT/hypertension/hyperlipidemia Complicates care, management, recovery and prognosis. CODE STATUS confirmed to be DNR CCA with the patient's daughter. There are no plans for intubation. TIME: 40 minutes of critical care time, independent of procedures, was spent addressing the patient's acute on chronic combined respiratory failure, COPD with exacerbation, encephalopathy, heart failure with preserved ejection fraction, review of all data and collaboration with the care team. ([id number]) Code Visit 9xxxx: [id number] Critical care first hour
--- NOTE | 2018-11-14 12:47 | ED.RN ---
HODAN COREAS CALLED PT'S DAUGHTER TO INFORM HER THAT PT IS IN ICU ROOM 8.
[2018-11-14 12:49] LABS: International Normalized Ratio 3.6
--- NOTE | 2018-11-14 12:50 | EKG12_ITS ---
Test Reason : [facility] Blood Pressure : / mmHG Vent. Rate : 061 BPM Atrial Rate : 061 BPM P-R Int : 130 ms QRS Dur : 072 ms QT Int : 442 ms P-R-T Axes : 045 027 026 degrees QTc Int : 444 ms Sinus rhythm with marked sinus arrhythmia Otherwise normal ECG When compared with ECG of 14-NOV-2018 10:04, MANUAL COMPARISON REQUIRED, DATA IS UNCONFIRMED Confirmed by ZUHAIR CHO ([id number]), international editorial producer CONTRERAS WALDEN ([id number]) on 11/20/2018 9:13:49 AM Referred By: CHIKIS Confirmed By:DENNIS CHO
--- NOTE | 2018-11-14 12:55 | CON.PCM_ITS ---
Reason for Consult Date of Consultation: 11/14/18 Reason for Consultation: Acute on chronic respiratory failure History of Present Illness: The patient is a 73-year-old female, with a history as outlined below, who presented to the emergency department in an encephalopathic state. Per report, the patient was noted to be significantly hypoxemic in her jail facility. The patient has a known history of end-stage COPD, chronic hypoxemic respiratory failure and continuous tobacco dependency. 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 I did at one point see the patient in the pulmonary medicine clinic, but she has been lost to follow-up for quite some time. The patient was last admitted to the hospital October 06 through October 12, during which time she was treated for acute on chronic respiratory failure and COPD exacerbation. At the time of her last hospitalization, the patient was noted to be a DNR CCA. Upon discharge, the patient went for a short period of time to the rehab facility and then went to a jail facility. She does appear to have signed DNR paperwork from the nursing facility from mid October indicating that she is a DNR Comfort Care status. On presentation to the emergency department, the patient was noted to be tachycardic, tachypneic and hypertensive. Laboratory evaluation revealed an elevated white blood cell count to 16,000. INR was elevated to 3.6. Initial arterial blood gas revealed a pH of 7.1 with a corresponding PCO2 of greater than 130 and a PO2 of 141. Chemistry profile was notable for a serum bicarbonate of greater than 45 and creatinine of 1.28. Lactate was within normal limits. BNP was elevated to 456. The patient's plain film chest x-ray revealed findings concerning for potential right upper lobe infiltrate. The patient was placed on BiPAP and subsequently started on antibiotics. I did evaluate the patient in the emergency department and did confirm that she did have signed paperwork from her jail facility indicating a DNR CC status. I called and personally spoke with the patient's daughter who revoked her comfort care status and transition her to DNR CCA without intubation. The patient was subsequently transferred to the medical intensive care unit. 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 (Chronic) Toe pain, left (Chronic) Toe pain, right (Chronic) Tinea unguium (Chronic) Atrial fibrillation (Chronic) Osteoarthritis (Chronic) Hypertension (Chronic) Respiratory failure (Chronic) COPD (chronic obstructive pulmonary disease) (Chronic) Atrial fibrillation with RVR (Chronic) Tobacco abuse (Chronic) Anemia (Chronic) DVT (deep venous thrombosis) (Chronic) Left hip pain (Chronic) Olecranon fracture (Chronic) Pubic ramus fracture (Chronic) Medical History: Medical History (Last Reviewed 04/02/18 @ 08:36 by Pankaj Zimmerman MD) Toe pain, left (Chronic) M79.675 Toe pain, right (Chronic) M79.674 Tinea unguium (Chronic) B35.1 Atrial fibrillation (Chronic) I48.91 Osteoarthritis (Chronic) M19.90 Fall (Acute) W19.XXXA Fracture of left pelvis (Acute) S32.9XXA Closed left hip fracture (Resolved) S72.002A Hypertension (Chronic) I10 Hemorrhagic shock (Resolved) [id number] Respiratory failure (Chronic) J96.90 COPD (chronic obstructive pulmonary disease) (Chronic) J44.9 Atrial fibrillation with RVR (Chronic) I48.91 Tobacco abuse (Chronic) Z72.0 Anemia (Chronic) D64.9 Retroperitoneal bleeding (Resolved) R58 DVT (deep venous thrombosis) (Chronic) I82.409 Left hip pain (Chronic) M25.552 Olecranon fracture (Chronic) S52.023A Pubic ramus fracture (Chronic) S32.599A Allergies metformin Adverse Reaction (Verified 11/14/18 11:21) Diarrhea Home Medications: Ambulatory Orders Medication Instructions Recorded Acetaminophen [Tylenol] 1,000 mg PO Q8H PRN PRN tablet 01/03/17 Ensure Enlive 120 ml PO 4X/DAY 10/12/18 Albuterol Aerosols [Ventolin 2.5 mg INHALATION Q6HWA.RT 30 Days 10/24/18 Aerosols] vial.neb. Albuterol Sulfate [Ventolin Hfa] 2 puff INHALATION Q6H PRN PRN #18 g 10/24/18 Cyanocobalamin [Vitamin B12] 1,000 mcg PO DAILY@0800 tablet 10/24/18 Fluticasone/Salmeterol [Advair 1 ea IH BID #1 inhaler 10/24/18 250-50 Diskus] Furosemide [Lasix] 20 mg PO DAILY tablet 10/24/18 Metoprolol Tartrate [Lopressor 25 mg PO BID tablet 10/24/18 (beta jarad)] Polyethylene Glycol 3350 [Miralax] 17 gm PO DAILY PRN PRN packet 10/24/18 Potassium Chloride 20 meq PO DAILY #0 10/24/18 Tiotropium [place] [Spiriva 18 MCG] 1 puff INHALATION DAILY #1 inhaler 10/24/18 Warfarin [Coumadin] 7.5 mg PO DAILY@1700 tablet 10/24/18 Cholecalciferol (VIT D3) [Vitamin 1,000 unit PO DAILY 11/14/18 D] Loperamide [Imodium] 2 mg PO Q6H PRN PRN 11/14/18 Senna/Docusate Sodium [Senokot-S] 1 tablet PO DAILY 11/14/18 busPIRone [Buspar] 10 mg PO BID 11/14/18 busPIRone [Buspar] 15 mg PO BID 11/14/18 Surgical History: Surgical History (Last Reviewed 03/02/18 @ 09:36 by Pankaj Zimmerman MD) History of inferior vena caval filter placement (Chronic) Z95.828 Hx of bilateral hip replacements (Chronic) Z96.643 Left elbow fracture (Acute) S42.402A Surgical History: appendectomy, total hip arthroplasty - Bilateral., - - s/p IVC filter, Left elbow fracture. 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 Smoking Status: Former smoker - *Family History Maternal Family History: Family History (Last Reviewed 03/02/18 @ 09:36 by Pankaj Zimmerman MD) Father Diabetes Heart disease Hypertension Mother Heart disease Hypertension History Items: High Cholesterol, Heart Disease, Hypertension Paternal Family History: Family History (Last Reviewed 03/02/18 @ 09:36 by Pankaj Zimmerman MD) Father Diabetes Heart disease Hypertension Mother Heart disease Hypertension History Items: Diabetes, High Cholesterol, Heart Disease, Hypertension Review of Systems Unable to obtain accurate/complete ROS d/t: Due to encephalopathic state. Objective: The patient's most recent lab work, culture data and imaging studies have all been personally reviewed. - Physical Exam General: - - Obtunded and minimally responsive on BiPAP HEENT: Atraumatic, Normocephalic Oral: Dry Mucosa Neck: Supple, No Nodes, Trachea Midline Lungs: - - Globally diminished air movement bilaterally Cardiovascular: Regular rate, Regular Rhythm, Normal S1, Normal S2, No murmurs Abdomen: Bowel Sounds Present, Soft, Non Tender, Obese Extremities: No clubbing, No cyanosis, Edema Skin: No breakdown Musculoskeletal: No Muscle Wasting Lymphatic: No Cervical, Supraclavicular, or Inguinal Adenopathy Neurological: - - Unable to perform detailed neurological examination as the patient is nonresponsive. Vital Signs Temp Pulse Resp BP Pulse Ox 96.1 F L 93 23 H 104/64 95 11/14/18 11:12 11/14/18 11:42 11/14/18 11:42 11/14/18 11:42 11/14/18 11:42 Oxygen Flow Rate (L/min) 70 Oxygen Delivery Method Bi-pap Weight: 191 lb 12.835 oz Body Mass Index (BMI) 31.8 Laboratory Tests Past 24 Hrs 11/14/18 11/14/18 11/14/18 09:54 09:54 09:54 WBC 16.5 H RBC 3.66 L Hgb 10.5 L Hct 40.4 MCV 110.4 H MCH 28.7 MCHC 26.0 L RDW 14.8 H RDW Differential 59.7 H Plt Count 170 MPV 10.6 Immature Gran % (Auto) 1.600 H Neut % (Auto) 63.5 Lymph % (Auto) 25.5 [place] % (Auto) 8.8 Eos % (Auto) 0.5 Baso % (Auto) 0.1 Absolute Neuts (auto) 10.5 H Absolute Lymphs (auto) 4.21 Total Counted Not Reportable PT INR Specimen Type pH Bicarbonate Actual POC Total CO2 Base Excess O2 Saturation O2 % ABG pCO2 ABG pO2 Respiration Rate O2 Delivery Device EPAP IPAP Blood Gas Notified Whom Blood Gas Notified Time Sodium 141 Potassium 4.9 Chloride 97 L Carbon Dioxide > 45.0 H* Anion Gap TNP BUN 32 H Creatinine 1.28 H Estim Creat Clear Calc 34.17 Est GFR (MDRD) Af Amer 52 L Est GFR (MDRD) Non-Af 43 L BUN/Creatinine Ratio 25.0 H Glucose 253 H Lactic Acid Calcium 9.7 Troponin I 0.017 B-Natriuretic Peptide 456.5 H 11/14/18 11/14/18 11/14/18 09:54 09:54 11:01 WBC RBC Hgb Hct MCV MCH MCHC RDW RDW Differential Plt Count MPV Immature Gran % (Auto) Neut % (Auto) Lymph % (Auto) [place] % (Auto) Eos % (Auto) Baso % (Auto) Absolute Neuts (auto) Absolute Lymphs (auto) Total Counted PT Pending INR Pending Specimen Type ART pH 7.10 L* Bicarbonate Actual Pending POC Total CO2 Pending Base Excess Pending O2 Saturation Pending O2 % 80 ABG pCO2 > 130.0 H* ABG pO2 141 H Respiration Rate 12 O2 Delivery Device Bi / C PAP EPAP 6 IPAP 12 Blood Gas Notified Whom ED MD Blood Gas Notified Time 1105 Sodium Potassium Chloride Carbon Dioxide Anion Gap BUN Creatinine Estim Creat Clear Calc Est GFR (MDRD) Af Amer Est GFR (MDRD) Non-Af BUN/Creatinine Ratio Glucose Lactic Acid 1.3 Calcium Troponin I B-Natriuretic Peptide Clinical Impression(s) from Imaging Studies Chest X-Ray 11/14/18 10:00 IMPRESSION: Questionable early right upper lobe infiltrate superimposed on mild bibasilar scarring. Electronically Signed: Krishna Grant, at 10:30 EDT , Service support , Assessment/Plan RECOMMENDATIONS: 1. Stop continuous supplemental IV fluids. 2. Continue scheduled bronchodilators and IV steroids. 3. Discontinue opiate pain medications. 4. Continue broad-spectrum antimicrobials, pending infectious work-up. 5. Transition from BiPAP to AVAPS with a target TV of 400mL 6. Maintain oxygen saturations 88 to 92%, to prevent paradoxical CO2 retention. 7. Hold Coumadin, given supratherapeutic INR. 8. Discontinue order for subcutaneous Lovenox. IMPRESSIONS: 1. Acute on chronic combined respiratory failure secondary to end-stage COPD with exacerbation The patient has known end-stage COPD has been lost to pulmonary follow-up since 2016. She reportedly quit smoking recently. Although the patient presented to the emergency department with signed DNR paperwork indicating a comfort care status, the patient's daughter subsequently changed her status to DNR CCA without intubation. Given the patient's elevated white blood cell count, continue broad-spectrum antimicrobials, pending infectious work-up. The patient will be transition from conventional BiPAP to AVAPS. Plan to obtain repeat arterial blood gas in 1 hour. The patient requires volume ventilation and all other alternative therapies have been considered and ruled out due to the severity of the disease state and life-threatening condition, including CO2 retention. Due to increased prob ability of acute exacerbation, the patient requires ventilation to be used during the day as needed, in addition to nightly usage with facemask. 2. Encephalopathy Metabolic in nature and related to hypercarbia. Anticipate improvement with the use of noninvasive positive pressure ventilatory support. 3. Heart failure with preserved ejection fraction Continue outpatient diuretic regimen, given elevated BNP on presentation. 4. Right middle lobe density The patient did have a low-dose CT scan performed in 2015, which did reveal evidence of a 2.9 x 1.8 cm right middle lobe density. Follow-up chest imaging was recommended. However, the patient failed to follow-up. 5. Tobacco dependency, now currently in remission/history of atrial fibrillation/history of DVT/hypertension/hyperlipidemia Complicates care, management, recovery and prognosis. CODE STATUS confirmed to be DNR CCA with the patient's daughter. There are no plans for intubation. TIME: 40 minutes of critical care time, independent of procedures, was spent addressing the patient's acute on chronic combined respiratory failure, COPD with exacerbation, encephalopathy, heart failure with preserved ejection fraction, review of all data and collaboration with the care team. ([id number]) Code Visit [id number]: [id number] Critical care first hour
[2018-11-14 13:28] LABS: Color, Urine Yellow (Yellow); Glucose, Dipstick 100 mg/dl (Normal); Ketone-Dipstick Negative (Negative); Leukocyte Esterase-Dipstick Negative /ul (Negative); Nitrite-Dipstick Negative (Negative); Occult Blood-Urine 10 /ul (Negative); Protein-Dipstick 30 mg/dl (Negative); Specific Gravity, Urine 1.015 (1.002-1.030); Urine Bilirubin Dipstick Negative (Negative); Urine Clarity Clear (Clear); Urine Urobilinogen Normal (Normal)
[2018-11-14] MEDS: Insulin Lispro 100 UNIT/ML INSULN.PEN SQ ×2 (14:18→18:03)
[2018-11-14 14:30] LABS: Bedside Glucose 285 mg/dL (70-110)
[2018-11-14 17:00] LABS: Blood Gas Specimen Type ART; EPAP 5; FI02 60; PO2 67 mmHG (75-100); RR 12; SITE L Radial; Time Given 1332; pCO2 > 130.0 mmHg (35-45); pH 7.16 (7.35-7.45)
--- NOTE | 2018-11-14 17:39 | CHAPLAIN ---
Type of Pastoral Visit _x__ Initial Visit ___ Follow-up Visit ___ On-call Visit ___ General Patient Visit ___ Spiritual Assessment ___ Family Conference ___ Bereavement ___ Rapid Response ___ Code Blue ___ Other (describe below) Pastoral Care Referral From ___ Patient _x__ Family _x__ Nurse ___ Physician ___ Compacting Machine Operator/Tender ___ Glaze Supervisor ___ Other (describe below) Sacrament/Intervention _x__ Active listening ___ Anointing ___ Scientology ___ Bereavement ___ Communion _x__ Lisa exploration ___ ___ Life review _x__ Prayer ___ Reconciliation ___ Sacrament of Sick _x__ Supportive presence ___ Wedding ___ Other (describe below) Pastoral Comments
--- NOTE | 2018-11-14 17:41 | EKG12_ITS ---
Test Reason : SA Blood Pressure : / mmHG Vent. Rate : 056 BPM Atrial Rate : 056 BPM P-R Int : 126 ms QRS Dur : 060 ms QT Int : 416 ms P-R-T Axes : 011 035 053 degrees QTc Int : 401 ms Sinus bradycardia Otherwise normal ECG When compared with ECG of 14-NOV-2018 12:50, MANUAL COMPARISON REQUIRED, DATA IS UNCONFIRMED Confirmed by ZUHAIR CHO ([id number]), assignment desk editor CONTRERAS WALDEN ([id number]) on 11/20/2018 9:13:59 AM Referred By: DESEAN Confirmed By:DENNIS CHO
[2018-11-14 18:06] LABS: Bedside Glucose 202 mg/dL (70-110)
[2018-11-14] MEDS: Ipratropium/Albuterol Sulfate 3 ML AMPUL.NEB INHALATION ×2 (19:16→22:22)
[2018-11-14] MEDS: Metoprolol Tartrate 25 MG Tablet PO (21:19)
[2018-11-14 23:06] LABS: Bedside Glucose 124 mg/dL (70-110)
[2018-11-15] VITALS (25 sets, daily range): BP systolic 118–151; BP diastolic 66–108; PULSE 59–115; RESP 15–33; TEMP 36.6–37.4; O2SAT 64–98
[2018-11-15] MEDS: Ipratropium/Albuterol Sulfate 3 ML AMPUL.NEB INHALATION ×3 (03:17→10:47)
[2018-11-15 03:38] LABS: Absolute Lymphocyte Count 0.44 X10^3/ul (0.83-4.51); Absolute Neutrophil Count 6.3 X10^3/uL (2.0-7.7); Hematocrit 34.3 % (37-47); Lymphocyte # 0.44 X10^3/ul (4.0); Lymphocyte % 6.3 % (19-41); Mean Corp Hgb Conc 26.2 g/gl (32-36); Mean Corpuscular Hgb 28.5 pg (27.0-32.0); Mean Corpuscular Volume 108.5 fL (81-99); Mean Platelet Vol. 10.5 fl (6.2-12.0); Monocyte# 0.16 X10^3/uL; Monocyte% 2.3 % (0-10); Neutrophil # 6.33 X10^3/uL (2.7-7.7); Neutrophil % 90.8 % (47-70); POSITIVE COUNT NO; POSITIVE DIFFERENTIAL YES; POSITIVE MORPHOLOGY NO; Platelet Count 143 K/mm3 (150-450); RBC Distribution Width CV 14.3 % (11.6-14.6); RBC Distribution Width SD 55.1 fl (35.1-43.9); Red Blood Count 3.16 M/mm3 (4.2-5.4)
[2018-11-15 03:39] LABS: Differential Indicated SCAN CRITERIA MET
[2018-11-15 03:45] LABS: Prothrombin Time (Protime)PT. 37.3 SECONDS (11.7-14.9)
[2018-11-15 03:49] LABS: International Normalized Ratio 3.7
[2018-11-15 03:56] LABS: BUN 34 mg/dL (7-18); Calcium,Total 9.5 mg/dL (8.5-10.1); Carbon Dioxide > 45.0 mmol/L (21.0-32.0); Chloride 98 mmol/L (98-107); Creatinine, Serum 1.31 mg/dL (0.55-1.02); EST Glomerular Filtration Rate 42 mL/min (>60); Est Glom Filt Rate - Afr Amer 51 mL/min (>60); Estimated Creatinine Clearance 33.39 ml/min; Glucose 147 mg/dL (74-106); Potassium 5.3 mmol/L (3.5-5.1); Sodium Level 146 mmol/L (136-145)
[2018-11-15 05:35] LABS: Bedside Glucose 149 mg/dL (70-110)
--- NOTE | 2018-11-15 07:06 | PCM.PN.INT ---
Subjective: The patient was seen and examined at the bedside this morning. Events from the last 24 hours have been reviewed. The patient is currently afebrile, hemodynamically stable and maintaining appropriate oxygen saturations on AVAPS. Following transfer to the ICU yesterday, the patient was transitioned from BiPAP to AVAPS. I did speak with the patient's daughter at the bedside yesterday afternoon. She did confirm that the patient was not interested in being intubated. I explained to her that we would continue to utilize noninvasive positive pressure ventilatory support in an attempt to correct her acid-base disturbance. If she did not respond to noninvasive positive pressure ventilation, consideration would need to be given to the initiation of comfort care measures. Although the patient's arterial blood gas did not improve after being on AVAPS for greater than 1 hour, her mentation has slowly improved over the course of the evening. Her INR remains elevated this morning at 3.7. Objective: The patient's most recent lab work, culture data and imaging studies have all been personally reviewed. 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 Surface echocardiogram dated October 2018 revealed evidence of stage II diastolic dysfunction with an ejection fraction of 60%. Strep and urine Legionella antigens were both negative. Sputum and blood cultures are pending. General: - - Remains on AVAPS. The patient is much more alert and interactive this morning. HEENT: Atraumatic, PERRLA, Normocephalic Oral: Dry Mucosa Neck: Supple, No Nodes, Trachea Midline Lungs: No rhonchi, No wheeze, No rales, Diminished Cardiovascular: Normal S1, Normal S2, No murmurs, Tachycardic Abdomen: Bowel Sounds Present, Soft, Non Tender, Obese Extremities: No clubbing, No cyanosis, Edema Skin: - - No significant change from previous Musculoskeletal: No Tenderness to Palpation of Joints or Extremities, No Muscle Wasting Lymphatic: No Cervical, Supraclavicular, or Inguinal Adenopathy Neurological: - - No focal neurological deficits. Vital Signs Temp Pulse Resp BP Pulse Ox 98.5 F 61 22 H 135/81 H 94 11/15/18 06:00 11/15/18 06:00 11/15/18 06:00 11/15/18 06:00 11/15/18 06:00 Oxygen Flow Rate (L/min) 70 Oxygen Delivery Method Bi-pap Weight: 182 lb 8.684 oz Body Mass Index (BMI) 30.4 Intake and Output for Last 24 Hours 11/13/18 11/14/18 11/15/18 23:59 23:59 23:59 Intake Total 566 / 566 143.2 / 143.2 Output Total 600 / 600 550 / 550 Balance -34 / -34 -406.8 / -406.8 Labs (Last 48 Hours) 11/14/18 11/14/18 11/14/18 09:54 09:54 09:54 WBC 16.5 H RBC 3.66 L Hgb 10.5 L Hct 40.4 MCV 110.4 H MCH 28.7 MCHC 26.0 L RDW 14.8 H RDW Differential 59.7 H Plt Count 170 MPV 10.6 Immature Gran % (Auto) 1.600 H Neut % (Auto) 63.5 Lymph % (Auto) 25.5 [place] % (Auto) 8.8 Eos % (Auto) 0.5 Baso % (Auto) 0.1 Absolute Neuts (auto) 10.5 H Absolute Lymphs (auto) 4.21 Total Counted Not Reportable PT INR Specimen Type Sample Site pH Bicarbonate Actual POC Total CO2 Base Excess O2 Saturation O2 % ABG pCO2 ABG pO2 Gm Test Respiration Rate O2 Delivery Device EPAP IPAP Blood Gas Notified Whom Blood Gas Notified Time Sodium 141 Potassium 4.9 Chloride 97 L Carbon Dioxide > 45.0 H* Anion Gap TNP BUN 32 H Creatinine 1.28 H Estim Creat Clear Calc 34.17 Est GFR (MDRD) Af Amer 52 L Est GFR (MDRD) Non-Af 43 L BUN/Creatinine Ratio 25.0 H Glucose 253 H Lactic Acid Calcium 9.7 Troponin I 0.017 B-Natriuretic Peptide 456.5 H Urine Color Urine Clarity Urine pH Ur Specific [place] Urine Protein Urine Glucose (UA) Urine Ketones Urine Occult Blood Urine Nitrite Urine Bilirubin Urine Urobilinogen Ur Leukocyte Esterase POC Glucose 11/14/18 11/14/18 11/14/18 09:54 09:54 11:01 WBC RBC Hgb Hct MCV MCH MCHC RDW RDW Differential Plt Count MPV Immature Gran % (Auto) Neut % (Auto) Lymph % (Auto) [place] % (Auto) Eos % (Auto) Baso % (Auto) Absolute Neuts (auto) Absolute Lymphs (auto) Total Counted PT 36.0 H INR 3.6 H* Specimen Type ART Sample Site pH 7.10 L* Bicarbonate Actual Pending POC Total CO2 Pending Base Excess Pending O2 Saturation Pending O2 % 80 ABG pCO2 > 130.0 H* ABG pO2 141 H Gm Test Respiration Rate 12 O2 Delivery Device Bi / C PAP EPAP 6 IPAP 12 Blood Gas Notified Whom ED Blood Gas Notified Time 1105 Sodium Potassium Chloride Carbon Dioxide Anion Gap BUN Creatinine Estim Creat Clear Calc Est GFR (MDRD) Af Amer Est GFR (MDRD) Non-Af BUN/Creatinine Ratio Glucose Lactic Acid 1.3 Calcium Troponin I B-Natriuretic Peptide Urine Color Urine Clarity Urine pH Ur Specific [place] Urine Protein Urine Glucose (UA) Urine Ketones Urine Occult Blood Urine Nitrite Urine Bilirubin Urine Urobilinogen Ur Leukocyte Esterase POC Glucose 11/14/18 11/14/18 11/14/18 13:15 13:33 13:33 WBC RBC Hgb Hct MCV MCH MCHC RDW RDW Differential Plt Count MPV Immature Gran % (Auto) Neut % (Auto) Lymph % (Auto) [place] % (Auto) Eos % (Auto) Baso % (Auto) Absolute Neuts (auto) Absolute Lymphs (auto) Total Counted PT INR Specimen Type ART Sample Site L Radial pH 7.16 L* Bicarbonate Actual Pending POC Total CO2 Pending Base Excess Pending O2 Saturation Pending O2 % 60 ABG pCO2 > 130.0 H* ABG pO2 67 L Gm Test NA Respiration Rate 12 O2 Delivery Device Bi / C PAP EPAP 5 IPAP Blood Gas Notified Whom ICU Blood Gas Notified Time 1332 Sodium Potassium Chloride Carbon Dioxide Anion Gap BUN Creatinine Estim Creat Clear Calc Est GFR (MDRD) Af Amer Est GFR (MDRD) Non-Af BUN/Creatinine Ratio Glucose Lactic Acid Calcium Troponin I B-Natriuretic Peptide Urine Color Yellow Urine Clarity Clear Urine pH 5.0 Ur Specific [place] 1.015 Urine Protein 30 H Urine Glucose (UA) 100 H Urine Ketones Negative Urine Occult Blood 10 H Urine Nitrite Negative Urine Bilirubin Negative Urine Urobilinogen Normal Ur Leukocyte Esterase Negative POC Glucose 285 H 11/14/18 11/14/18 11/15/18 18:00 22:58 03:20 WBC RBC Hgb Hct MCV MCH MCHC RDW RDW Differential Plt Count MPV Immature Gran % (Auto) Neut % (Auto) Lymph % (Auto) [place] % (Auto) Eos % (Auto) Baso % (Auto) Absolute Neuts (auto) Absolute Lymphs (auto) Total Counted PT 37.3 H INR 3.7 H* Specimen Type Sample Site pH Bicarbonate Actual POC Total CO2 Base Excess O2 Saturation O2 % ABG pCO2 ABG pO2 Gm Test Respiration Rate O2 Delivery Device EPAP IPAP Blood Gas Notified Whom Blood Gas Notified Time Sodium Potassium Chloride Carbon Dioxide Anion Gap BUN Creatinine Estim Creat Clear Calc Est GFR (MDRD) Af Amer Est GFR (MDRD) Non-Af BUN/Creatinine Ratio Glucose Lactic Acid Calcium Troponin I B-Natriuretic Peptide Urine Color Urine Clarity Urine pH Ur Specific [place] Urine Protein Urine Glucose (UA) Urine Ketones Urine Occult Blood Urine Nitrite Urine Bilirubin Urine Urobilinogen Ur Leukocyte Esterase POC Glucose 202 H 124 H 11/15/18 11/15/18 11/15/18 03:20 03:20 05:25 WBC 7.0 RBC 3.16 L Hgb 9.0 L Hct 34.3 L MCV 108.5 H MCH 28.5 MCHC 26.2 L RDW 14.3 RDW Differential 55.1 H Plt Count 143 L MPV 10.5 Immature Gran % (Auto) 0.600 Neut % (Auto) 90.8 H Lymph % (Auto) 6.3 L [place] % (Auto) 2.3 Eos % (Auto) 0.0 Baso % (Auto) 0.0 Absolute Neuts (auto) 6.3 Absolute Lymphs (auto) 0.44 L Total Counted Not Reportable PT INR Specimen Type Sample Site pH Bicarbonate Actual POC Total CO2 Base Excess O2 Saturation O2 % ABG pCO2 ABG pO2 Gm Test Respiration Rate O2 Delivery Device EPAP IPAP Blood Gas Notified Whom Blood Gas Notified Time Sodium 146 H Potassium 5.3 H Chloride 98 Carbon Dioxide > 45.0 H* Anion Gap TNP BUN 34 H Creatinine 1.31 H Estim Creat Clear Calc 33.39 Est GFR (MDRD) Af Amer 51 L Est GFR (MDRD) Non-Af 42 L BUN/Creatinine Ratio 26.0 H Glucose 147 H Lactic Acid Calcium 9.5 Troponin I B-Natriuretic Peptide Urine Color Urine Clarity Urine pH Ur Specific [place] Urine Protein Urine Glucose (UA) Urine Ketones Urine Occult Blood Urine Nitrite Urine Bilirubin Urine Urobilinogen Ur Leukocyte Esterase POC Glucose 149 H Microbiology 11/14/18 13:15 Urine Catheter - Catheter Streptococcus pneumoniae Antigen (M - Final 11/14/18 13:15 Urine Catheter - Catheter Legionella Antigen - Final Clinical Impression(s) from Imaging Studies Chest X-Ray 11/14/18 10:00 IMPRESSION: Questionable early right upper lobe infiltrate superimposed on mild bibasilar scarring. Electronically Signed: Krishna Lomaxpolina, at 10:30 EDT , Service support , Medical Necessity - Tobacco Use Smoking Status: Former smoker Assessment/Plan All Active Problems (Last Reviewed 04/02/18 @ 08:36 by Pankaj Zimmerman MD) Heme + stool (Acute) Acute on chronic respiratory failure with hypoxia and hypercapnia (Acute) COPD with exacerbation (Acute) Fall (Acute) Fracture of left pelvis (Acute) Closed left hip fracture (Resolved) Left elbow fracture (Acute) Hemorrhagic shock (Resolved) Retroperitoneal bleeding (Resolved) RECOMMENDATIONS: 1. Continue empiric antimicrobial coverage, pending infectious work-up. 2. Continue scheduled bronchodilators along with IV steroids. 3. Continue AVAPS and wean as tolerated. 4. Maintain oxygen saturations 88 to 92%, to prevent paradoxical CO2 retention. 5. Consider obtaining repeat CT chest. 6. If the patient recovers clinically, she would likely benefit from the use of noninvasive positive pressure ventilation following discharge. IMPRESSIONS: 1. Acute on chronic combined respiratory failure secondary to end-stage COPD with exacerbation The patient has known end-stage COPD has been lost to pulmonary follow-up since 2016. She reportedly quit smoking recently. Although the patient presented to the emergency department with signed DNR paperwork indicating a comfort care status, the patient's daughter subsequently changed her status to DNR CCA without intubation. Given the patient's elevated white blood cell count, broad-spectrum antimicrobials were initiated, pending infectious work-up. As of this morning, she has responded favorably to the use of NPPV. Her mentation has improved accordingly. The patient requires volume ventilation and all other alternative therapies have been considered and ruled out due to the severity of the disease state and life-threatening condition, including CO2 retention. Due to increased probability of acute exacerbation, the patient requires ventilation to be used during the day as needed, in addition to nightly usage with facemask. 2. Hypercarbic Encephalopathy Improved. Continue AVAPS as tolerated. 3. Heart failure with preserved ejection fraction Continue outpatient diuretic regimen, given elevated BNP on presentation. 4. Right middle lobe density The patient did have a low-dose CT scan performed in 2015, which did reveal evidence of a 2.9 x 1.8 cm right middle lobe density. Follow-up chest imaging was recommended. However, the patient failed to follow-up. 5. Tobacco dependency, now currently in remission/history of atrial fibrillation/history of DVT/hypertension/hyperlipidemia Complicates care, management, recovery and prognosis. CODE STATUS confirmed to be DNR CCA with the patient's daughter. There are no plans for intubation. UPDATE: Following rounds, the patient and her family asked to speak with me regarding goals of care. The patient reported to me that she was not interested in using any form of noninvasive positive pressure ventilatory support. In fact, she wished to have her AVAPS mask removed. The patient is currently alert and appropriately interactive. She does have capacity for medical decision-making. She reported to me that she did not wish to have any form of aggressive or invasive medical therapy performed. She is wishing to pursue comfort care measures. She is asking for hospice to evaluate her. I did speak with both case management and social work regarding the patient's wish. Plan at this time will include referral to hospice care services. Family met with [facility]. Patient is wishing to pursue comfort care measures. Order placed for DNR-CC. Comfort medication orders placed. Family present at the bedside. TIME: 50 minutes of critical care time, independent of procedures, was spent addressing the patient's acute on chronic combined respiratory failure, COPD with exacerbation, encephalopathy, heart failure with preserved ejection fraction, future goals of care, review of all data and collaboration with the care team. ([id number]) Code Visit [id number]: [id number] Critical care first hour
--- NOTE | 2018-11-15 07:10 | PN_ITS ---
Subjective: The patient was seen and examined at the bedside this morning. Events from the last 24 hours have been reviewed. The patient is currently afebrile, hemodynamically stable and maintaining appropriate oxygen saturations on AVAPS. Following transfer to the ICU yesterday, the patient was transitioned from BiPAP to AVAPS. I did speak with the patient's daughter at the bedside yesterday afternoon. She did confirm that the patient was not interested in being intubated. I explained to her that we would continue to utilize noninvasive positive pressure ventilatory support in an attempt to correct her acid-base disturbance. If she did not respond to noninvasive positive pressure ventilation, consideration would need to be given to the initiation of comfort care measures. Although the patient's arterial blood gas did not improve after being on AVAPS for greater than 1 hour, her mentation has slowly improved over the course of the evening. Her INR remains elevated this morning at 3.7. Objective: The patient's most recent lab work, culture data and imaging studies have all been personally reviewed. 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 Surface echocardiogram dated October 2018 revealed evidence of stage II diastolic dysfunction with an ejection fraction of 60%. Strep and urine Legionella antigens were both negative. Sputum and blood cultures are pending. General: - - Remains on AVAPS. The patient is much more alert and interactive this morning. HEENT: Atraumatic, PERRLA, Normocephalic Oral: Dry Mucosa Neck: Supple, No Nodes, Trachea Midline Lungs: No rhonchi, No wheeze, No rales, Diminished Cardiovascular: Normal S1, Normal S2, No murmurs, Tachycardic Abdomen: Bowel Sounds Present, Soft, Non Tender, Obese Extremities: No clubbing, No cyanosis, Edema Skin: - - No significant change from previous Musculoskeletal: No Tenderness to Palpation of Joints or Extremities, No Muscle Wasting Lymphatic: No Cervical, Supraclavicular, or Inguinal Adenopathy Neurological: - - No focal neurological deficits. Vital Signs Temp Pulse Resp BP Pulse Ox 98.5 F 61 22 H 135/81 H 94 11/15/18 06:00 11/15/18 06:00 11/15/18 06:00 11/15/18 06:00 11/15/18 06:00 Oxygen Flow Rate (L/min) 70 Oxygen Delivery Method Bi-pap Weight: 182 lb 8.684 oz Body Mass Index (BMI) 30.4 Intake and Output for Last 24 Hours 11/13/18 11/14/18 11/15/18 23:59 23:59 23:59 Intake Total 566 / 566 143.2 / 143.2 Output Total 600 / 600 550 / 550 Balance -34 / -34 -406.8 / -406.8 Labs (Last 48 Hours) 11/14/18 11/14/18 11/14/18 09:54 09:54 09:54 WBC 16.5 H RBC 3.66 L Hgb 10.5 L Hct 40.4 MCV 110.4 H MCH 28.7 MCHC 26.0 L RDW 14.8 H RDW Differential 59.7 H Plt Count 170 MPV 10.6 Immature Gran % (Auto) 1.600 H Neut % (Auto) 63.5 Lymph % (Auto) 25.5 Power % (Auto) 8.8 Eos % (Auto) 0.5 Baso % (Auto) 0.1 Absolute Neuts (auto) 10.5 H Absolute Lymphs (auto) 4.21 Total Counted Not Reportable PT INR Specimen Type Sample Site pH Bicarbonate Actual POC Total CO2 Base Excess O2 Saturation O2 % ABG pCO2 ABG pO2 Gm Test Respiration Rate O2 Delivery Device EPAP IPAP Blood Gas Notified Whom Blood Gas Notified Time Sodium 141 Potassium 4.9 Chloride 97 L Carbon Dioxide > 45.0 H* Anion Gap TNP BUN 32 H Creatinine 1.28 H Estim Creat Clear Calc 34.17 Est GFR (MDRD) Af Amer 52 L Est GFR (MDRD) Non-Af 43 L BUN/Creatinine Ratio 25.0 H Glucose 253 H Lactic Acid Calcium 9.7 Troponin I 0.017 B-Natriuretic Peptide 456.5 H Urine Color Urine Clarity Urine pH Ur Specific [place] Urine Protein Urine Glucose (UA) Urine Ketones Urine Occult Blood Urine Nitrite Urine Bilirubin Urine Urobilinogen Ur Leukocyte Esterase POC Glucose 11/14/18 11/14/18 11/14/18 09:54 09:54 11:01 WBC RBC Hgb Hct MCV MCH MCHC RDW RDW Differential Plt Count MPV Immature Gran % (Auto) Neut % (Auto) Lymph % (Auto) Power % (Auto) Eos % (Auto) Baso % (Auto) Absolute Neuts (auto) Absolute Lymphs (auto) Total Counted PT 36.0 H INR 3.6 H* Specimen Type ART Sample Site pH 7.10 L* Bicarbonate Actual Pending POC Total CO2 Pending Base Excess Pending O2 Saturation Pending O2 % 80 ABG pCO2 > 130.0 H* ABG pO2 141 H Gm Test Respiration Rate 12 O2 Delivery Device Bi / C PAP EPAP 6 IPAP 12 Blood Gas Notified Whom ED Blood Gas Notified Time 1105 Sodium Potassium Chloride Carbon Dioxide Anion Gap BUN Creatinine Estim Creat Clear Calc Est GFR (MDRD) Af Amer Est GFR (MDRD) Non-Af BUN/Creatinine Ratio Glucose Lactic Acid 1.3 Calcium Troponin I B-Natriuretic Peptide Urine Color Urine Clarity Urine pH Ur Specific [place] Urine Protein Urine Glucose (UA) Urine Ketones Urine Occult Blood Urine Nitrite Urine Bilirubin Urine Urobilinogen Ur Leukocyte Esterase POC Glucose 11/14/18 11/14/18 11/14/18 13:15 13:33 13:33 WBC RBC Hgb Hct MCV MCH MCHC RDW RDW Differential Plt Count MPV Immature Gran % (Auto) Neut % (Auto) Lymph % (Auto) Power % (Auto) Eos % (Auto) Baso % (Auto) Absolute Neuts (auto) Absolute Lymphs (auto) Total Counted PT INR Specimen Type ART Sample Site L Radial pH 7.16 L* Bicarbonate Actual Pending POC Total CO2 Pending Base Excess Pending O2 Saturation Pending O2 % 60 ABG pCO2 > 130.0 H* ABG pO2 67 L Gm Test NA Respiration Rate 12 O2 Delivery Device Bi / C PAP EPAP 5 IPAP Blood Gas Notified Whom ICU Blood Gas Notified Time 1332 Sodium Potassium Chloride Carbon Dioxide Anion Gap BUN Creatinine Estim Creat Clear Calc Est GFR (MDRD) Af Amer Est GFR (MDRD) Non-Af BUN/Creatinine Ratio Glucose Lactic Acid Calcium Troponin I B-Natriuretic Peptide Urine Color Yellow Urine Clarity Clear Urine pH 5.0 Ur Specific [place] 1.015 Urine Protein 30 H Urine Glucose (UA) 100 H Urine Ketones Negative Urine Occult Blood 10 H Urine Nitrite Negative Urine Bilirubin Negative Urine Urobilinogen Normal Ur Leukocyte Esterase Negative POC Glucose 285 H 11/14/18 11/14/18 11/15/18 18:00 22:58 03:20 WBC RBC Hgb Hct MCV MCH MCHC RDW RDW Differential Plt Count MPV Immature Gran % (Auto) Neut % (Auto) Lymph % (Auto) Power % (Auto) Eos % (Auto) Baso % (Auto) Absolute Neuts (auto) Absolute Lymphs (auto) Total Counted PT 37.3 H INR 3.7 H* Specimen Type Sample Site pH Bicarbonate Actual POC Total CO2 Base Excess O2 Saturation O2 % ABG pCO2 ABG pO2 Gm Test Respiration Rate O2 Delivery Device EPAP IPAP Blood Gas Notified Whom Blood Gas Notified Time Sodium Potassium Chloride Carbon Dioxide Anion Gap BUN Creatinine Estim Creat Clear Calc Est GFR (MDRD) Af Amer Est GFR (MDRD) Non-Af BUN/Creatinine Ratio Glucose Lactic Acid Calcium Troponin I B-Natriuretic Peptide Urine Color Urine Clarity Urine pH Ur Specific [place] Urine Protein Urine Glucose (UA) Urine Ketones Urine Occult Blood Urine Nitrite Urine Bilirubin Urine Urobilinogen Ur Leukocyte Esterase POC Glucose 202 H 124 H 11/15/18 11/15/18 11/15/18 03:20 03:20 05:25 WBC 7.0 RBC 3.16 L Hgb 9.0 L Hct 34.3 L MCV 108.5 H MCH 28.5 MCHC 26.2 L RDW 14.3 RDW Differential 55.1 H Plt Count 143 L MPV 10.5 Immature Gran % (Auto) 0.600 Neut % (Auto) 90.8 H Lymph % (Auto) 6.3 L Power % (Auto) 2.3 Eos % (Auto) 0.0 Baso % (Auto) 0.0 Absolute Neuts (auto) 6.3 Absolute Lymphs (auto) 0.44 L Total Counted Not Reportable PT INR Specimen Type Sample Site pH Bicarbonate Actual POC Total CO2 Base Excess O2 Saturation O2 % ABG pCO2 ABG pO2 Gm Test Respiration Rate O2 Delivery Device EPAP IPAP Blood Gas Notified Whom Blood Gas Notified Time Sodium 146 H Potassium 5.3 H Chloride 98 Carbon Dioxide > 45.0 H* Anion Gap TNP BUN 34 H Creatinine 1.31 H Estim Creat Clear Calc 33.39 Est GFR (MDRD) Af Amer 51 L Est GFR (MDRD) Non-Af 42 L BUN/Creatinine Ratio 26.0 H Glucose 147 H Lactic Acid Calcium 9.5 Troponin I B-Natriuretic Peptide Urine Color Urine Clarity Urine pH Ur Specific [place] Urine Protein Urine Glucose (UA) Urine Ketones Urine Occult Blood Urine Nitrite Urine Bilirubin Urine Urobilinogen Ur Leukocyte Esterase POC Glucose 149 H Microbiology 11/14/18 13:15 Urine Catheter - Catheter Streptococcus pneumoniae Antigen (M - Final 11/14/18 13:15 Urine Catheter - Catheter Legionella Antigen - Final Clinical Impression(s) from Imaging Studies Chest X-Ray 11/14/18 10:00 IMPRESSION: Questionable early right upper lobe infiltrate superimposed on mild bibasilar scarring. Electronically Signed: Krishna Buttngco, at 10:30 EDT , Service support , Medical Necessity - Tobacco Use Smoking Status: Former smoker Assessment/Plan All Active Problems (Last Reviewed 04/02/18 @ 08:36 by Pankaj Zimmerman MD) Heme + stool (Acute) Acute on chronic respiratory failure with hypoxia and hypercapnia (Acute) COPD with exacerbation (Acute) Fall (Acute) Fracture of left pelvis (Acute) Closed left hip fracture (Resolved) Left elbow fracture (Acute) Hemorrhagic shock (Resolved) Retroperitoneal bleeding (Resolved) RECOMMENDATIONS: 1. Continue empiric antimicrobial coverage, pending infectious work-up. 2. Continue scheduled bronchodilators along with IV steroids. 3. Continue AVAPS and wean as tolerated. 4. Maintain oxygen saturations 88 to 92%, to prevent paradoxical CO2 retention. 5. Consider obtaining repeat CT chest. 6. If the patient recovers clinically, she would likely benefit from the use of noninvasive positive pressure ventilation following discharge. IMPRESSIONS: 1. Acute on chronic combined respiratory failure secondary to end-stage COPD with exacerbation The patient has known end-stage COPD has been lost to pulmonary follow-up since 2016. She reportedly quit smoking recently. Although the patient presented to the emergency department with signed DNR paperwork indicating a comfort care status, the patient's daughter subsequently changed her status to DNR CCA without intubation. Given the patient's elevated white blood cell count, broad- spectrum antimicrobials were initiated, pending infectious work-up. As of this m orning, she has responded favorably to the use of NPPV. Her mentation has improved accordingly. The patient requires volume ventilation and all other alternative therapies have been considered and ruled out due to the severity of the disease state and life- threatening condition, including CO2 retention. Due to increased probability of acute exacerbation, the patient requires ventilation to be used during the day as needed, in addition to nightly usage with facemask. 2. Hypercarbic Encephalopathy Improved. Continue AVAPS as tolerated. 3. Heart failure with preserved ejection fraction Continue outpatient diuretic regimen, given elevated BNP on presentation. 4. Right middle lobe density The patient did have a low-dose CT scan performed in 2016, which did reveal evidence of a 2.9 x 1.8 cm right middle lobe density. Follow-up chest imaging was recommended. However, the patient failed to follow-up. 5. Tobacco dependency, now currently in remission/history of atrial fibrillation/history of DVT/hypertension/hyperlipidemia Complicates care, management, recovery and prognosis. CODE STATUS confirmed to be DNR CCA with the patient's daughter. There are no plans for intubation. UPDATE: Following rounds, the patient and her family asked to speak with me regarding goals of care. The patient reported to me that she was not interested in using any form of noninvasive positive pressure ventilatory support. In fact, she wished to have her AVAPS mask removed. The patient is currently alert and appropriately interactive. She does have capacity for medical decision-making. She reported to me that she did not wish to have any form of aggressive or invasive medical therapy performed. She is wishing to pursue comfort care measures. She is asking for hospice to evaluate her. I did speak with both case management and social work regarding the patient's wish. Plan at this time will include referral to hospice care services. Family met with [facility]. Patient is wishing to pursue comfort care measures. Order placed for DNR-CC. Comfort medication orders placed. Family present at the bedside. TIME: 50 minutes of critical care time, independent of procedures, was spent addressing the patient's acute on chronic combined respiratory failure, COPD with exacerbation, encephalopathy, heart failure with preserved ejection fraction, future goals of care, review of all data and collaboration with the care team. ([id number]) Code Visit 9xxxx: [id number] Critical care first hour
--- NOTE | 2018-11-15 08:40 | PCM.PN.HOSP ---
Subjective: Patient did not had fever last night. Heart rate in 50s and 60s. On AVAPS. Although ABG shows CO2 more than 130 but patient mentation and respiratory status has improved. Patient is feeling less short of breath. She is also more awake than yesterday this morning simple questions, although still mildly lethargic. Vitals/I&O's: Vital Signs Temp Pulse Resp BP Pulse Ox 98.5 F 67 28 H 135/81 H 94 11/15/18 06:00 11/15/18 06:47 11/15/18 06:47 11/15/18 06:00 11/15/18 06:47 Oxygen Flow Rate (L/min) 70 Oxygen Delivery Method Bi-pap Weight: 182 lb 8.684 oz Body Mass Index (BMI) 30.4 Intake and Output for Last 24 Hours 11/13/18 11/14/18 11/15/18 23:59 23:59 23:59 Intake Total 566 / 566 143.2 / 143.2 Output Total 600 / 600 550 / 550 Balance -34 / -34 -406.8 / -406.8 General: Cooperative, Disoriented, Lethargic HEENT: Atraumatic, PERRLA, EOMI, Normocephalic Oral: Moist Mucosa Neck: Supple, No JVD, Negative Carotid Bruits Lungs: No rhonchi, No wheeze, No rales, Diminished Cardiovascular: Regular rate, Regular Rhythm, Normal S1, Normal S2, No murmurs Abdomen: Bowel Sounds Present, Soft, Non Tender, Non-Distended Extremities: No edema, Capillary Refill Less than 3 Seconds, Edema Skin: No rashes, No breakdown Musculoskeletal: No Tenderness to Palpation of Joints or Extremities, Arthritic Changes, Muscle Wasting Neurological: Cranial nerves II-XII grossly intact, Deep Tendon Reflexes 2+/4 and Symmetrical Microbiology Past 72 Hours 11/14/18 13:15 Urine Catheter - Catheter Streptococcus pneumoniae Antigen (M - Final 11/14/18 13:15 Urine Catheter - Catheter Legionella Antigen - Final Laboratory Results 11/14/18 09:54: WBC 16.5 H, RBC 3.66 L, Hgb 10.5 L, Hct 40.4, MCV 110.4 H, MCH 28.7, MCHC 26.0 L, RDW 14.8 H, RDW Differential 59.7 H, Plt Count 170, MPV 10.6, Immature Gran % (Auto) 1.600 H, Neut % (Auto) 63.5, Lymph % (Auto) 25.5, [place] % (Auto) 8.8, Eos % (Auto) 0.5, Baso % (Auto) 0.1, Absolute Neuts (auto) 10.5 H, Absolute Lymphs (auto) 4.21, Total Counted Not Reportable 11/14/18 09:54: Sodium 141, Potassium 4.9, Chloride 97 L, Carbon Dioxide > 45.0 H*, Anion Gap TNP, BUN 32 H, Creatinine 1.28 H, Estim Creat Clear Calc 34.17, Est GFR (MDRD) Af Amer 52 L, Est GFR (MDRD) Non-Af 43 L, BUN/Creatinine Ratio 25.0 H, Glucose 253 H, Calcium 9.7, Troponin I 0.017 11/14/18 09:54: B-Natriuretic Peptide 456.5 H 11/14/18 09:54: Lactic Acid 1.3 11/14/18 09:54: PT 36.0 H, INR 3.6 H* 11/14/18 11:01: Specimen Type ART, pH 7.10 L*, Bicarbonate Actual Pending, POC Total CO2 Pending, Base Excess Pending, O2 Saturation Pending, O2 % 80, ABG pCO2 > 130.0 H*, ABG pO2 141 H, Respiration Rate 12, O2 Delivery Device Bi / C PAP, EPAP 6, IPAP 12, Blood Gas Notified Whom ED , Blood Gas Notified Time 1105 11/14/18 13:15: Urine Color Yellow, Urine Clarity Clear, Urine pH 5.0, Ur Specific [place] 1.015, Urine Protein 30 H, Urine Glucose (UA) 100 H, Urine Ketones Negative, Urine Occult Blood 10 H, Urine Nitrite Negative, Urine Bilirubin Negative, Urine Urobilinogen Normal, Ur Leukocyte Esterase Negative 11/14/18 13:33: POC Glucose 285 H 11/14/18 13:33: Specimen Type ART, Sample Site L Radial, pH 7.16 L*, Bicarbonate Actual Pending, POC Total CO2 Pending, Base Excess Pending, O2 Saturation Pending, O2 % 60, ABG pCO2 > 130.0 H*, ABG pO2 67 L, Gm Test NA, Respiration Rate 12, O2 Delivery Device Bi / C PAP, EPAP 5, Blood Gas Notified Whom ICU MD, Blood Gas Notified Time 1332 11/14/18 18:00: POC Glucose 202 H 11/14/18 22:58: POC Glucose 124 H 11/15/18 03:20: PT 37.3 H, INR 3.7 H* 11/15/18 03:20: WBC 7.0, RBC 3.16 L, Hgb 9.0 L, Hct 34.3 L, MCV 108.5 H, MCH 28.5, MCHC 26.2 L, RDW 14.3, RDW Differential 55.1 H, Plt Count 143 L, MPV 10.5, Immature Gran % (Auto) 0.600, Neut % (Auto) 90.8 H, Lymph % (Auto) 6.3 L, [place] % (Auto) 2.3, Eos % (Auto) 0.0, Baso % (Auto) 0.0, Absolute Neuts (auto) 6.3, Absolute Lymphs (auto) 0.44 L, Total Counted Not Reportable 11/15/18 03:20: Sodium 146 H, Potassium 5.3 H, Chloride 98, Carbon Dioxide > 45.0 H*, Anion Gap TNP, BUN 34 H, Creatinine 1.31 H, Estim Creat Clear Calc 33.39, Est GFR (MDRD) Af Amer 51 L, Est GFR (MDRD) Non-Af 42 L, BUN/Creatinine Ratio 26.0 H, Glucose 147 H, Calcium 9.5 11/15/18 05:25: POC Glucose 149 H Current Medications Acetaminophen (Tylenol) 650 mg PO Q8H PRN PRN PRN Reason: MILD PAIN (1-3/10) Acetaminophen (Tylenol) 650 mg PO Q4H PRN PRN PRN Reason: Fever/pain Albuterol Sulfate (Ventolin Aerosols) 2.5 mg INHALATION Q2H PRN PRN PRN Reason: SHORTNESS OF BREATH Albuterol/Ipratropium (Duoneb) 3 ml INHALATION Q4H.RT WENDY Last Admin: 11/15/18 06:47 Dose: 3 ml Bisacodyl (Dulcolax) 10 mg RECTAL DAILY PRN PRN PRN Reason: Constipation Cholecalciferol (Vitamin D) 1,000 unit PO DAILYCM WENDY Cyanocobalamin (Vitamin B12) 1,000 mcg PO DAILY@0800 [facility] Dextrose (D50w Syringe) 0 gm IV X1 PRN; Protocol PRN Reason: Hypoglycemia Docusate Sodium (Colace) 200 mg PO BID PRN PRN PRN Reason: Constipation Glucagon () 1 mg IM .X1 PRN PRN Reason: Hypoglycemia Guaifenesin (Mucinex) 1,200 mg PO BID [facility] Last Admin: 11/14/18 21:19 Dose: Not Given Piperacillin Sod/Tazobactam (Sod 3.375 gm/ Sodium Chloride) 50 mls @ 12.5 mls/hr IV Q8 [facility] Last Admin: 11/15/18 05:28 Dose: 12.5 mls/hr Insulin Human Lispro (Humalog Kwikpen (Bkc)) 0 unit SQ Q6 [facility]; Protocol Last Admin: 11/15/18 05:26 Dose: Not Given Loperamide HCl (Imodium) 2 mg PO Q6H PRN PRN PRN Reason: Diarrhea Methylprednisolone (Solu-Medrol) 40 mg IV Q8 [facility] Last Admin: 11/15/18 05:27 Dose: 40 mg Metoprolol Tartrate (Lopressor (Beta [place])) 25 mg PO BID [facility] Last Admin: 11/14/18 21:19 Dose: 25 mg Ondansetron HCl (Zofran) 4 mg IV Q8H PRN PRN PRN Reason: NAUSEA Polyethylene Glycol (Miralax) 17 gm PO DAILY [facility] Senna/Docusate Sodium (Senokot-S, Annie-Colace) 1 tablet PO DAILY [facility] Medical Necessity - Tobacco Use Smoking Status: Former smoker Assessment/Plan All Active Problems (Last Reviewed 04/02/18 @ 08:36 by Pankaj Zimmerman MD) Heme + stool (Acute) Acute on chronic respiratory failure with hypoxia and hypercapnia (Acute) COPD with exacerbation (Acute) Fall (Acute) Fracture of left pelvis (Acute) Closed left hip fracture (Resolved) Left elbow fracture (Acute) Hemorrhagic shock (Resolved) Retroperitoneal bleeding (Resolved) The patient is a 73 year old F with multiple comorbidities as listed above was brought into ER from group home for sudden onset of shortness of breath although she has end-stage COPD, history of intubation a month ago. Her pulse ox was 40% on room air. Usually she is on 6 L of oxygen through nasal cannula which was changed to 9 L in group home. EMS put her on CPAP and brought to ER. As per the group home paper, patient is DNR CC. The history is mainly taken from patient's daughter and son-in-law near the bedside. Patient is on BiPAP, very lethargic with eyes closed and opens eyes on verbal command. As per daughter, she was fine until yesterday. No history of recent fever or chills. She has chronic cough and shortness of breath from COPD. In ED, heart rate 150 in a flutter, blood pressure 150/88 tachypneic respiratory 25/min and was put on 100% BiPAP. Patient was given 20 mg IV Cardizem that brought her blood pressure down, BP 98/53. Heart rate in 90s, A. fib on monitor. Basic blood work in ED shows bicarb more than 45 with her baseline around 35-40. ABG PCO2 more than 130, pH 7.1. Chest x-ray shows questionable early right upper lobe infiltrate superimposed on bibasilar scarring. 1. Acute on chronic combined hypoxic and hypercarbic respiratory failure: She was seen by Dr. Shepard. Patient is being admitted in ICU after discussion with patient's daughter, Ms. Ssuhila Huerta. She changed the CODE STATUS from DNR CC to DNR CCA. She is okay with keeping BiPAP but no intubation, chest compression or shock. Patient is on AVAPS. 2. COPD exacerbation with chronic CO2 retainer: On bronchodilator, IV Solu-Medrol, incentive spirometry and chest physiotherapy. She is on a [facility] group home. 3. Right upper lobe infiltrate: Patient does not have fever although he was tachycardic with A. fib/flutter and tachypneic. Empirically started on IV Zosyn. Patient got 1 dose of vancomycin and Zosyn in ER. MRSA nasal screen is negative. Urinary antigens are negative. On IV Zosyn. 4. Atrial flutter/A. fib with RVR: Currently heart rate is controlled with 20 mg IV Cardizem. Patient is on Toprol 25 mg twice daily, Coumadin at home. INR 2.1 on 10/12. INR is supratherapeutic 3.7. 5. Other comorbidities include hypertension, dyslipidemia, DVT with PE on Coumadin, history of IVC filter, use degenerative joint disease, history of fall and closed left hip fracture. Multiple comorbidities complicates the present care and expect difficult and delay recovery. Limited physical capacity DVT prophylaxis: Bilateral SCDs. Pharmacological prophylaxis contraindicated. Microbiology Past 72 Hours 11/14/18 13:15 Urine Catheter - Catheter Streptococcus pneumoniae Antigen (M - Final 11/14/18 13:15 Urine Catheter - Catheter Legionella Antigen - Final Active Medications Acetaminophen (Tylenol) 650 mg PO Q8H PRN PRN PRN Reason: MILD PAIN (-09/16) Acetaminophen (Tylenol) 650 mg PO Q4H PRN PRN PRN Reason: Fever/pain Albuterol Sulfate (Ventolin Aerosols) 2.5 mg INHALATION Q2H PRN PRN PRN Reason: SHORTNESS OF BREATH Albuterol/Ipratropium (Duoneb) 3 ml INHALATION Q4H.RT [facility] Last Admin: 11/15/18 10:47 Dose: 3 ml Bisacodyl (Dulcolax) 10 mg RECTAL DAILY PRN PRN PRN Reason: Constipation Cholecalciferol (Vitamin D) 1,000 unit PO DAILYCM WENDY Cyanocobalamin (Vitamin B12) 1,000 mcg PO DAILY@0800 [facility] Dextrose (D50w Syringe) 0 gm IV X1 PRN; Protocol PRN Reason: Hypoglycemia Docusate Sodium (Colace) 200 mg PO BID PRN PRN PRN Reason: Constipation Glucagon () 1 mg IM .X1 PRN PRN Reason: Hypoglycemia Guaifenesin (Mucinex) 1,200 mg PO BID [facility] Last Admin: 11/14/18 21:19 Dose: Not Given Piperacillin Sod/Tazobactam (Sod 3.375 gm/ Sodium Chloride) 50 mls @ 12.5 mls/hr IV Q8 [facility] Last Admin: 11/15/18 05:28 Dose: 12.5 mls/hr Insulin Human Lispro (Humalog Kwikpen (Bkc)) 0 unit SQ Q6 [facility]; Protocol Last Admin: 11/15/18 05:26 Dose: Not Given Loperamide HCl (Imodium) 2 mg PO Q6H PRN PRN PRN Reason: Diarrhea Methylprednisolone (Solu-Medrol) 40 mg IV Q8 [facility] Last Admin: 11/15/18 05:27 Dose: 40 mg Metoprolol Tartrate (Lopressor (Beta [place])) 25 mg PO BID [facility] Last Admin: 11/14/18 21:19 Dose: 25 mg Ondansetron HCl (Zofran) 4 mg IV Q8H PRN PRN PRN Reason: NAUSEA Polyethylene Glycol (Miralax) 17 gm PO DAILY [facility] Senna/Docusate Sodium (Senokot-S, Annie-Colace) 1 tablet PO DAILY [facility] Code Visit Inpatient E&M: 04172 Subs Hosp L3
--- NOTE | 2018-11-15 09:25 | CASEMGMT ---
RN CM Note: participated in interdisciplinary rounding. Dr. Shepard discussed code status of DNR CCA with pt and her daughter. They are agreeable to this, however when physician recommended the Trilogy would need to be used @ SNF pt verbally declined and states she will not wear @ facility on dc. Dr. Shepard will have post rounds conversation with pt and daughter re: plan of care, Palliative and Hosice care if pt's wishes are to not continue Bipap treatment on dc. -SKYLER consult for probable Hospice/Palliative care referral. SKYLER Samaniego updated. Eugenio ESCALERAN RN ACM
--- NOTE | 2018-11-15 10:16 | CASEMGMT ---
Addendum entered by Angella Wagner 11/15/18 10:55: SW spoke w/Liza at [facility], Miranda will be here at 11:30am. SW let RN here know. LW/POA forms are on paper chart. USMAN John Original Note: Addendum entered by Angella Wagner 11/15/18 10:31: SW did leave a message for Simin at [facility] letting her know hospice will be meeting w/pt today. USMAN John Original Note: SW spoke w/Dr. Shepard, he states pt is ready for hospice. SW called hospice, made referral, spoke w/Liza. She will call family directly once this SW lets her know who to contact. SW spoke w/daughter Sushila in ICU waiting room. She is pt's POA, only child. SW offered support to daughter, as she states she was not expecting this today. SW explained will send the information to hospice and have them call her directly to set up a time. SKYLER faxed the clinical information to [facility], put daughter's name and number on cover to contact her, also faxed POA forms that were in chart showing Sushila is POA. USMAN John
[2018-11-15 10:54] LABS: M R Staph aureus DNA By PCR Negative (Negative); Probe Check PASS; Specimen Processing Control PASS
--- NOTE | 2018-11-15 12:25 | NURSING ---
Bipap taken off and high flow 15L nasal cannula applied. Patient going to hospice center at 1500.
--- NOTE | 2018-11-15 14:57 | CPS ---
PT IS NOW HOSPICE.
[2018-11-15] MEDS: LORazepam 2 MG/ML Syringe 1 MG IV (15:24)
--- NOTE | 2018-11-15 15:30 | PCM.DC.SUM ---
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 Gram-negative renee right upper lobe pneumonia - Secondary Discharge Diagnosis Chronic Problems (Last Reviewed 04/02/18 @ 08:36 by Pankaj Zimmerman MD) Hypertension (Chronic) DVT (deep venous thrombosis) (Chronic) Pulmonary embolism (Chronic) History of inferior vena caval filter placement (Chronic) Hx of bilateral hip replacements (Chronic) Toe pain, left (Chronic) Toe pain, right (Chronic) Tinea unguium (Chronic) Atrial fibrillation (Chronic) Osteoarthritis (Chronic) Hypertension (Chronic) Respiratory failure (Chronic) COPD (chronic obstructive pulmonary disease) (Chronic) Atrial fibrillation with RVR (Chronic) Tobacco abuse (Chronic) Anemia (Chronic) DVT (deep venous thrombosis) (Chronic) Left hip pain (Chronic) Olecranon fracture (Chronic) Pubic ramus fracture (Chronic) Hospital Course and Treatment Operations: None Summary of Care Provided: [] The patient is a 73 year old F with multiple comorbidities as listed above was brought into ER from custodial for sudden onset of shortness of breath although she has end-stage COPD, history of intubation a month ago. Her pulse ox was 40% on room air. Usually she is on 6 L of oxygen through nasal cannula which was changed to 9 L in custodial. EMS put her on CPAP and brought to ER. As per the custodial paper, patient is DNR CC. The history is mainly taken from patient's daughter and son-in-law near the bedside. Patient is on BiPAP, very lethargic with eyes closed and opens eyes on verbal command. As per daughter, she was fine until yesterday. No history of recent fever or chills. She has chronic cough and shortness of breath from COPD. In ED, heart rate 150 in a flutter, blood pressure 150/88 tachypneic respiratory 25/min and was put on 100% BiPAP. Patient was given 20 mg IV Cardizem that brought her blood pressure down, BP 98/53. Heart rate in 90s, A. fib on monitor. Basic blood work in ED shows bicarb more than 45 with her baseline around 35-40. ABG PCO2 more than 130, pH 7.1. Chest x-ray shows questionable early right upper lobe infiltrate superimposed on bibasilar scarring. 1. Acute on chronic combined hypoxic and hypercarbic respiratory failure: She was seen by Dr. Shepard. Patient is being admitted in ICU after discussion with patient's daughter, Ms. Sushila Huerta. She changed the CODE STATUS from DNR CC to DNR CCA. She is okay with keeping BiPAP but no intubation, chest compression or DC shock. Patient was on AVAPS. 2. COPD exacerbation with chronic CO2 retainer: On bronchodilator, IV Solu-Medrol, incentive spirometry and chest physiotherapy. She is on a Spiriva and Advair custodial. 3. Right upper lobe gram-negative renee pneumonia: Patient does not have fever although he was tachycardic with A. fib/flutter and tachypneic. Empirically started on IV Zosyn. Patient got 1 dose of vancomycin and Zosyn in ER. MRSA nasal screen is negative. Urinary antigens are negative. On IV Zosyn. Preliminary Gram stain of sputum culture growing gram-negative rods. 4. Atrial flutter/A. fib with RVR: Currently heart rate is controlled with 20 mg IV Cardizem. Patient is on Toprol 25 mg twice daily, Coumadin at home. INR is supratherapeutic 3.7. 5. Other comorbidities include hypertension, dyslipidemia, DVT with PE on Coumadin, history of IVC filter, use degenerative joint disease, history of fall and closed left hip fracture. Multiple comorbidities complicates the present care and expect difficult and delay recovery. Limited physical capacity DVT prophylaxis: Bilateral SCDs. Pharmacological prophylaxis contraindicated. As mentioned above, patient wanted DNR CC and palliative care. CODE STATUS was changed to DNR care. Palliative care was consulted. Patient deemed appropriate for inpatient hospice care and patient was transferred to hospice care. Subjective: When patient became more alert and awake and oriented x3, comprehensive and coordinate his speech; she made decision for DNR CC and palliative care. Palliative care consult was called. Patient was accepted for inpatient hospice. For physical findings and exam, see progress note of today - Physical Exam Vital Signs Temp Pulse Resp BP Pulse Ox 98.9 F 86 33 H 132/82 H 74 11/15/18 12:00 11/15/18 15:00 11/15/18 15:00 11/15/18 12:00 11/15/18 15:00 Oxygen Flow Rate (L/min) 15 Oxygen Delivery Method Nasal Cannula Weight: 182 lb 8.684 oz Body Mass Index (BMI) 30.4 Intake and Output for Last 24 Hours 11/13/18 11/14/18 11/15/18 23:59 23:59 23:59 Intake Total 566 / 566 243.2 / 243.2 Output Total 600 / 600 800 / 800 Balance -34 / -34 -556.8 / -556.8 Microbiology Past 72 Hours 11/14/18 16:50 Gram Stain - Final Sputum, Expectorated/Coughed Respiratory Culture - Preliminary Gram negative renee 11/14/18 13:15 Streptococcus pneumoniae Antigen (M - Final Urine Catheter - Catheter 11/14/18 13:15 Legionella Antigen - Final Urine Catheter - Catheter Laboratory Tests Past 24 Hrs 11/14/18 11/15/18 11/15/18 13:33 03:20 03:20 WBC 7.0 RBC 3.16 L Hgb 9.0 L Hct 34.3 L MCV 108.5 H MCH 28.5 MCHC 26.2 L RDW 14.3 RDW Differential 55.1 H Plt Count 143 L MPV 10.5 Immature Gran % (Auto) 0.600 Neut % (Auto) 90.8 H Lymph % (Auto) 6.3 L Stanley % (Auto) 2.3 Eos % (Auto) 0.0 Baso % (Auto) 0.0 Absolute Neuts (auto) 6.3 Absolute Lymphs (auto) 0.44 L Total Counted Not Reportable PT 37.3 H INR 3.7 H* Specimen Type ART Sample Site L Radial pH 7.16 L* Bicarbonate Actual Pending POC Total CO2 Pending Base Excess Pending O2 Saturation Pending O2 % 60 ABG pCO2 > 130.0 H* ABG pO2 67 L Gm Test NA Respiration Rate 12 O2 Delivery Device Bi / C PAP EPAP 5 Blood Gas Notified Whom ICU Blood Gas Notified Time 1332 Sodium Potassium Chloride Carbon Dioxide Anion Gap BUN Creatinine Estim Creat Clear Calc Est GFR (MDRD) Af Amer Est GFR (MDRD) Non-Af BUN/Creatinine Ratio Glucose Calcium MRSA (PCR) 11/15/18 11/15/18 03:20 08:40 WBC RBC Hgb Hct MCV MCH MCHC RDW RDW Differential Plt Count MPV Immature Gran % (Auto) Neut % (Auto) Lymph % (Auto) Stanley % (Auto) Eos % (Auto) Baso % (Auto) Absolute Neuts (auto) Absolute Lymphs (auto) Total Counted PT INR Specimen Type Sample Site pH Bicarbonate Actual POC Total CO2 Base Excess O2 Saturation O2 % ABG pCO2 ABG pO2 Gm Test Respiration Rate O2 Delivery Device EPAP Blood Gas Notified Whom Blood Gas Notified Time Sodium 146 H Potassium 5.3 H Chloride 98 Carbon Dioxide > 45.0 H* Anion Gap TNP BUN 34 H Creatinine 1.31 H Estim Creat Clear Calc 33.39 Est GFR (MDRD) Af Amer 51 L Est GFR (MDRD) Non-Af 42 L BUN/Creatinine Ratio 26.0 H Glucose 147 H Calcium 9.5 MRSA (PCR) Negative POC Glucose 11/15/18 11/14/18 11/14/18 05:25 22:58 18:00 POC Glucose 149 H 124 H 202 H Home Medications: Medications to take at Discharge Acetaminophen [Tylenol] 1,000 mg PO Q8H PRN PRN tablet 01/03/17 Ensure Enlive 120 ml PO 4X/DAY 10/12/18 Albuterol Aerosols [Ventolin Aerosols] 2.5 mg INHALATION Q6HWA.RT 30 Days vial.neb. 10/24/18 Albuterol Sulfate [Ventolin Hfa] 2 puff INHALATION Q6H PRN PRN #18 g 10/24/18 Cyanocobalamin [Vitamin B12] 1,000 mcg PO DAILY@0800 tablet 10/24/18 Fluticasone/Salmeterol [Advair 250-50 Diskus] 1 ea IH BID #1 inhaler 10/24/18 Furosemide [Lasix] 20 mg PO DAILY tablet 10/24/18 Metoprolol Tartrate [Lopressor (beta jarad)] 25 mg PO BID tablet 10/24/18 Polyethylene Glycol 3350 [Miralax] 17 gm PO DAILY PRN PRN packet 10/24/18 Potassium Chloride 20 meq PO DAILY #0 10/24/18 Tiotropium [place] [Spiriva 18 MCG] 1 puff INHALATION DAILY #1 inhaler 10/24/18 Warfarin [Coumadin] 7.5 mg PO DAILY@1700 tablet 10/24/18 Cholecalciferol (VIT D3) [Vitamin D] 1,000 unit PO DAILY 11/14/18 Loperamide [Imodium] 2 mg PO Q6H PRN PRN 11/14/18 Senna/Docusate Sodium [Senokot-S] 1 tablet PO DAILY 11/14/18 busPIRone [Buspar] 10 mg PO BID 11/14/18 busPIRone [Buspar] 15 mg PO BID 11/14/18 Primary Care Physician: Lisa Clancy MD [STAFF PHYSICIAN] - Medical Necessity - Tobacco Use Smoking Status: Former smoker Meaningful Use Info Meaningful Use Diagnoses (Choose all that apply): None applicable Code Visit Inpatient E&M: 85844 Disch Hosp
--- NOTE | 2018-11-16 08:26 | CASEMGMT ---
Simin from [facility] called this SW back and left a message. SW did call Simin, let her know pt went to the inpt hospice unit yesterday afternoon. USMAN John
== END 2018-11-15 15:40 | disposition hospice, inpatient (51) | DRG 189 ==
LOC: ED 10:10 → ICU 11:23
PROVIDERS: Admitting Provider Internal Medicine; Emergency Provider Emergency Medicine; Family Provider Emergency Medicine; PCP Emergency Medicine; Visit Provider Internal Medicine
DX: J96.21 Acute and chronic respiratory failure with hypoxia (principal); J15.6 Pneumonia due to other Gram-negative bacteria; J44.0 Chronic obstructive pulmonary disease with (acute) lower respiratory infection; J44.1 Chronic obstructive pulmonary disease with (acute) exacerbation; I48.92 Unspecified atrial flutter; I50.32 Chronic diastolic (congestive) heart failure; Y95 Nosocomial condition; I11.0 Hypertensive heart disease with heart failure; J96.22 Acute and chronic respiratory failure with hypercapnia; I48.2 Chronic atrial fibrillation; E78.5 Hyperlipidemia, unspecified; M19.90 Unspecified osteoarthritis, unspecified site; Z86.718 Personal history of other venous thrombosis and embolism; Z86.711 Personal history of pulmonary embolism; Z79.01 Long term (current) use of anticoagulants; Z99.81 Dependence on supplemental oxygen; Z79.899 Other long term (current) drug therapy; Z87.891 Personal history of nicotine dependence; Z66 Do not resuscitate
CPT/HCPCS: 36600; 71045; 80048; 81002; 82803; 82962; 83605; 83880; 84484; 85025; 85610; 87040; 87070; 87077; 87186; 87205; 87449; 87641; 93005; 94002; 94003; 94640; 99285; J7040; J7050; A4216